=== PATIENT | female | born 1945 | race Caucasian/White ===

== ENCOUNTER 2025-06-13 11:13 | Outpatient (CLI) | payer MEDICARE, BC, SELFPAY ==
--- OUTSIDE RECORDS SUMMARY | 2025-05-05 11:20 | XMS_ITS | Encounter Summary ---
Author Organization Healthcare Address [address] [place] [address] Care Team Providers Care Neurology Director Name Role Phone Celia Oscar MD Primary Care Provider [phone] Yoan Castaneda MD Unavailable [phone] Reason for Referral * Consultation (Routine) - Authorized Specialty Diagnoses / Procedures Referred By Contac t Referred To Contact Diagnoses Age-related osteoporosis without current pathological fracture Yisel Louie PA [address] [place] [id number] Phone: tel: fax: Referral ID Status Reason Start Date Expiration Date V isits Requested Visits Authorized [id number] Authorized 05/05/2025 11/04/2026 1 1 Reason for Visit * Reason Comments Follow-up Encounter Details Date Type Department Care Team (Late st Contact Info) Description 05/05/2025 11:20 AM EDT Office Visit Professional [facility] [address], [address] [place] [address] Yisel Louie PA [address] [place] [address] Age-related osteoporosis without current pathological fracture (Primary Dx); Hyperparathyroidism (CMS/HCC) Social History Tobacco Use Types Packs/Day Years Used Date Smoking Tobacco: Never Smokeless Tobacco: Never Comments:father smoked Alcohol Use Standard Drinks/Week Comments Never 0 (1 standard drink = 0.6 oz pur e alcohol) PHQ-2 Answer Date Recorded Patient Health Questionnaire-2 Score 0 05/05/2025 Humiliation, Afraid, Rape, and Kick questionnair e Answer Date Recorded Within the last year, have y ou been afraid of your partner or ex-partner? No 03/22/2025 Within the last year, have y ou been humiliated or emotionally abused in other ways by your partner or ex-partner? No Within the last year, have y ou been kicked, hit, slapped, or otherwise physically hurt by your partner or ex-partner? No 03/22/2025 Within the last year, have y ou been raped or forced to have any kind of sexual activity by your partner or ex-partner? No 03/22/2025 AUDIT-C Answer Date Recorded Q1: How often do you have a drink containing alcohol? Never 03/22/2025 Q2: How many drinks containi ng alcohol do you have on a typical day when you are drinking? Patient does not drink Q3: How often do you have si x or more drinks on one occasion? Never 03/22/2025 Overall Financial Resource Strain (CARDIA) Answe r Date Recorded How hard is it for you to pa y for the very basics like food, housing, medical care, and heating? Not hard at all 03/22/2025 [facility] - Occupational Stress Questionnaire Answer Date Recorded Do you feel stress - tense, restless, nervous, or anxious, or unable to sleep at night because your mind is troubled all the time - these days? Not at all 03/22/2025 Exercise Vital Sign Answer Date Recorde d On average, how many days pe r week do you engage in moderate to strenuous exercise (like a brisk walk)? 0 days 03/22/2025 On average, how many minutes do you engage in exercise at this level? 0 min 03/22/2025 PRAPARE - Transportation Answer Date Re corded In the past 12 months, has l ack of transportation kept you from medical appointments or from getting medications? No 03/12 In the past 12 months, has l ack of transportation kept you from meetings, work, or from getting things needed for daily living? No 03/22/2025 Utilities Answer Date Recorded In the past 12 months has th e electric, gas, oil, or water company threatened to shut off services in your home? No 03/22/2025 PHQ-2A Answer Date Recorded Depression Risk 0 10/07/2023 Comments No Sex and Gender Information Value Date Recorded Sex Assigned at Female 11/15/2021 5:16 PM EST Legal Sex Female 8:45 PM EDT Gender Identity Female 11/15/2021 5:16 PM EST Sexual Orientation Straight 11/15/2021 5: 16 PM EST documented as of this encounter Last Filed Vital Signs Vital Sign Reading Time Taken Comments Blood Pressure 129/85 05/05/2025 11:56 AM EDT BP retake Pulse 64 05/05/2025 11:40 AM EDT Temperature 36.6 C (97.9 F) 05/05/2025 11:40 AM EDT Respiratory Rate 16 05/05/2025 11:4 0 AM EDT Oxygen Saturation 96% 05/05/2025 11: 40 AM EDT Inhaled Oxygen Concentration - - Weight 79.7 kg (175 lb 11.3 oz) 025 11:40 AM EDT Height 162.4 cm (5' 3.94 ) 05/05/2025 1 1:40 AM EDT Body Mass Index 30.22 05/05/2025 11:40 AM EDT documented in this encounter Functional Status * Over the past 2 weeks, how often have you been bothered by any of the following problems? Question Answer Date of Assessment Author Little interest or pleasure in doing things Not at all 05/05/2025 11:49 AM EDT Nancy Vallecillo Feeling down, depressed, or hopeless Not at all 05/05/2025 11:49 AM EDT Nancy Vallecillo Patient Health Questionnaire -2 Score 0 05/05/2025 11:49 AM EDT Nancy Vallecillo documented as of this encounter Miscellaneous Notes * Progress Notes - Yisel Louie PA - 05/05/2025 11:20 AM EDT Karissa Cruz is a 79 y.o. female who is referred by Dr. Oscar Celia Guzman MD for evaluation and management of osteoporosis. She is seen for follow up today to review results of DXA and labs and discuss treatment Returns for f/u labs postPTX in Sep 2024 Labs - bone markers mid range and decreasing. Vit D 80 01/2025 DXA shows osteoporosis in both hips with low Tscores -3.1. Off of supplement currently. On MVI and vit D only Plan - f/u lab results again in 3 months. Trend bone markers and start treatment accordingly next visit, if increasing will start. Will continue to hold treatment for now since soon after PTX surgeryin Sep 2024. Not due for repeat DXA until December. 01/03 - f/u labs nl ca/pth/vit D. CTX 469 bsap 25 05/05 - CTX 351, BSAP 17 Hx Persistent hypercalcemia with elevated/nonsuppressed PTH rechecked after stopping hydrochlorothiazide Sestamibi scan showing hypercellular parathyroid gland in the left neck posterior to the left thyroid lobe, measuring about 7 mm Scan also showing bilateral thyroid nodules Parathyroidectomy 09/17/2024 DXA December 2024 L 1-2: -0.4 LFN: -3.0 LTH: -3.1 RFN: -2.8 RTH: -3.1 DXA scan Date May 2023 T-scores LS: -0.2 LFA: -2.8. LTH:-2.5 Worsening compared to prior February 2024 VFA moderate compression in the T8 vertebra 2015 - wrist # ORIF Past treatment for osteoporosis -none Bone disease history: Height loss none Kyphosis/scoliosis none Ambulation Independent, Can do stairs Falls none Balance none Pain none Dental history:upper teeth implants - 5 yrss Menopause - in 50s 1 preg at age 24 Sistes CKD, osteoporosis Mother kyphotic hump in back PMH: HTN HLD GERD Exocrine pancreatic insufficiency SHIPLEY Hyperparathyroid - surgery 09/2024 No cancers, XRT, renal stones, dental issues/scheduled dental procedures, dedicated intermodal truck driver corticosteroid; No thyroid/parathyroid/kidney/liver disease/CAD/CVA/TIA; No RA/organ transplant EPI - /GI disease (celiac, IBD, bariatric surgery, short gut, ileostomy)/HIV, meds/prolonged immobility PSH: No surgical history of bariatric surgery, joint surgeries/joint replacements, , kyphoplasty/vertebroplasty spine fusion february 2021 L3-L5 posterior spinal hardware fusion with L3-L4 and L4- L5 intervertebral disc spacers. Citrate 250 D3 150 Non- smoker no ETOH Past Medical History: Diagnosis Date Anxiety Arthritis Cataract Dania (Sister) AJ (brother) Jendra (sister) Depression GERD (gastroesophageal reflux disease) Hyperlipidemia Hypertension Macular degeneration Obesity Other seasonal allergic rhinitis Seasonal allergies Personal history of other diseases of the circulatory system History of hypertension Personal history of other diseases of the digestive system History of gastroesophageal reflux (GERD) Personal history of other endocrine, nutritional and metabolic disease History of high cholesterol Personal history of other specified conditions History of insomnia Retinal detachment Dania (sister) Jendra (sister) Family History Problem Relation Name Age of Onset Diabetes Mother Jeanne Arthritis Mother Jeanne Heart disease Mother Jeanne Hypertension Mother Jeanne Other cancer Father Johnny Cancer Father Johnny Stroke Father Johnny Arthritis Sister Jendra Diabetes Sister Jendra Hypertension Sister Jendra Hypothyroidism Sister Jendra Kidney disease Sister Jendra Vision loss Sister Jendra Cataracts Sister Jendra Macular degeneration Sister Jendra Retinal detachment Sister Jendra Thyroid disease Sister Jendra Hypertension Sister Dania Hypothyroidism Sister Dania Kidney disease Sister Dania Diabetes Sister Dania Cataracts Sister Dania Retinal detachment Sister Dania Thyroid disease Sister Dania Hypertension Brother AJ Cataracts Brother AJ Diabetes Maternal Grandmother Bela Glaucoma Maternal Grandmother Bela Other cancer Maternal Grandmother Bela Stroke Maternal Grandmother Bela Anesthesia problems Neg Hx Malig Hyperthermia Neg Hx Past Surgical History: Procedure Laterality Date BACK SURGERY 03/09/2021 SECTION, CLASSIC Aug 1971 SECTION, LOW TRANSVERSE N/A Section from [facility] CHOLECYSTECTOMY N/A Cholecystectomy from [facility] FRACTURE SURGERY HEMORRHOID SURGERY N/A X 2 ORIF WRIST FRACTURE Right PARATHYROIDECTOMY 09/13/2024 Near total with right inferior remnant SPINE SURGERY Social History Tobacco Use Smoking status: Never Smokeless tobacco: Never Tobacco comments: father smoked Substance Use Topics Alcohol use: Never Current Outpatient Medications Medication Instructions amLODIPine (NORVASC) 10 mg, Nightly ascorbic acid (VITAMIN C) 500 mg, Daily B Complex Vitamins (VITAMIN-B COMPLEX PO) 1 tablet, Daily Biotin w/ Vitamins C & E (HAIR SKIN & NAILS GUMMIES PO) Daily Cholecalciferol (VITAMIN D-3 PO) 4,000 Units, Daily cyanocobalamin (VITAMIN B-12) 1,000 mcg, Daily EPINEPHrine (Epipen) 0.3 MG/0.3ML injection syringe INJECT 1 SYRINGE INTO THE MUSCLE ONCE A DAY NEEDED FOR ANAPHYLAXIS fluticasone (Flonase) 50 MCG/ACT nasal spray Administer 2 sprays into each nostril 1 (one) time each day if needed. hydroCHLOROthiazide (HYDRODIURIL) 25 mg, Daily hydrocortisone 2.5 % cream 1 Application, 2 times daily lisinopril 30 mg, Daily loratadine (Claritin) 10 MG tablet TAKE 1 TABLET EVERY DAY NEEDED MAGNESIUM OXIDE PO 1,200 mg, Nightly montelukast (Singulair) 10 MG tablet Take 1 tablet (10 mg) by mouth every night. Mounjaro 5 MG/0.5ML solution auto-injector solution pen-injector Multiple Vitamins-Minerals (PRESERVISION AREDS 2 PO) 1 capsule, 2 times daily Multiple Vitamins-Minerals (ZINC PO) 44 mg, Daily NexIUM [address] capsule Take 1 capsule (40 mg) by mouth every night. olopatadine (Patanol) 0.1 % ophthalmic solution 1 drop, As needed ondansetron ODT (Zofran-ODT) 8 MG disintegrating tablet DISSOLVE 1 TABLET ON TONGUE EVERY 6 HOURS NEEDED pancrelipase, Wdg-Spdk-Lurp, (Creon) 81879-[address]893 units capsule Take 2 capsules by mouth 3 (three) times a day with meals. Pediatric Multivit-Minerals (FLINTSTONES GUMMIES PO) 2 Chewable tablet, Daily simvastatin (ZOCOR) 10 mg, 2 times daily tirzepatide (MOUNJARO) 5 mg, Weekly Ubiquinone (ULTRA COQ10 PO) 400 mg, Daily zolpidem (AMBIEN) 5 mg, Nightly Allergies Allergen Reactions Other Anaphylaxis and Other - please document in the comment field Allergic to bee stings Nitrofurantoin Rash Sulfa Drugs Unknown - Patient states they do not know rxn details, Hives and Itching Bee Venom Other - please document in the comment field Swollen Codeine Other - please document in the comment field Darvon [Propoxyphene] Unknown - Patient states they do not know rxn details Ephedrine Unknown - Patient states they do not know rxn details Hymenoptera Venom Preparations Unknown - Patient states they do not know rxn details Allergic to bee stings Levofloxacin Other - please document in the comment field deathly ill Pravastatin Other - please document in the comment field Sulfamethoxazole-Trimethoprim Other - please document in the comment field sulfamethoxazole / trimethoprim The following portions of the chart were reviewed this encounter and updated as appropriate: REVIEW OF SYSTEMS A 14 point ROS was obtained and is negative except as otherwise noted in HPI. PHYSICAL EXAMINATION Visit Vitals BP 129/85 (BP Location: Right arm, Patient Position: Sitting, BP Cuff Size: Adult) Comment: BP retake Pulse 64 Temp 36.6 ??C (97.9 ??F) (Oral) SpO2 96% Constitutional: No acute distress. Weight 79.7 kg (175 lb 11.3 oz) Height 1.624 m (5' 3.94 ) BMI: Body mass index is 30.22 kg/m??. BSA: Body surface area is 1.9 meters squared. HEENT: normal. Cardiovascular: No JVD, no edema Pulmonary: Normal effort of breathing. Abdominal: no distension Musculoskeletal: Normal extremity movements Skin: No rashes or lesions. Neurologic: No focal deficits Psychiatric: Orientated to person, place, and time: Normal Mood and affect LAB RESULTS Renal Panel: Lab Results Component Value Date GLUCOSE 98 04/21/2025 NA 141 04/21/2025 K 4.0 04/21/2025 CL 104 04/21/2025 CO2 27 04/21/2025 BUN 23 04/21/2025 CREATININE 0.67 04/21/2025 CREATININE 0.63 12/30/2024 CREATININE 0.59 (L) 09/21/2024 CREATININE 0.65 03/09/2024 EGFR 89.6 04/21/2025 CYSTATIN 1.11 03/09/2024 CALCIUM 9.3 04/21/2025 PHOS 4.1 04/21/2025 ALBUMIN 4.3 04/21/2025 VITAMIN D Lab Results Component Value Date VITD25 54.9 10/07/2023 VITD 1,25 40.1 10/07/2023 Urine studies: Lab Results Component Value Date CALCIUMUR 13.4 10/07/2023 PHOSUR 9.2 10/07/2023 CREATUR 96 12/30/2024 Paraproteinemia Labs: Lab Results Component Value Date PATHINTERP 10/07/2023 NORMAL SERUM PATTERN: Serum protein electrophoresis demonstrates no significant abnormality. M protein(s) not observed. Bone Turnover Markers: Lab Results Component Value Date BSAP 17.2 04/21/2025 BSAP 25.4 12/30/2024 BSAP 28.8 09/21/2024 BSAP 19.9 02/09/2024 BSAP 18.2 12/01/2023 BSAP 21.8 10/07/2023 CTELOX 351 04/21/2025 CTELOX 469 12/30/2024 CTELOX 394 09/21/2024 CTELOX 240 10/07/2023 NTELOPEPTS 9.4 10/07/2023 OSTEOCALCIN 18 10/07/2023 MBD: Lab Results Component Value Date PTH 53 04/21/2025 PTH 45 03/22/2025 PTH 66 12/30/2024 PTH 58 10/26/2024 CALCIUM 9.3 04/21/2025 CALCIUM 9.5 03/22/2025 CALCIUM 9.4 12/30/2024 CALCIUM 9.5 10/26/2024 ICAS 4.9 04/21/2025 ICAS 4.9 12/30/2024 ICAS 5.3 08/04/2024 ICAS 5.4 (H) 03/09/2024 PHOS 4.1 04/21/2025 PHOS 4.0 12/30/2024 PHOS 3.7 09/21/2024 PHOS 3.4 03/09/2024 MG 2.7 (H) 10/07/2023 ALBUMIN 4.3 04/21/2025 ALBUMIN 4.3 12/30/2024 ALBUMIN 3.9 09/21/2024 ALBUMIN 4.1 03/09/2024 ALKPHOS 101 03/09/2024 ALKPHOS 99 02/09/2024 ALKPHOS 90 12/01/2023 ALKPHOS 95 10/07/2023 ASSESSMENT/PLAN Karissa Cruz is a 79 y.o. female who presents for evaluation and management of osteoporosis in the setting of chronic pancreatitis and exocrine pancreatic insufficiency which she is taking Creon replacement. She has a history of wrist fracture in 2014 and underwent spinal fusion surgery in 2020.She has not been treated for osteoporosis DEXA scan shows osteoporotic T-scores. Labs show mildly elevated serum calcium with normal PTH. This could be related to her calcium supplements as well as hydrochlorothiazide that she takes for hypertension. VFA showing moderate compression in the T8 vertebra Repeat labs still showing mild hypercalcemia without PTH suppression Sestamibi scan - with target lesion in region of left thyroid lobe in addition to thyroid nodules Parathyroidectomy 09/2024 Problem List Items Addressed This Visit Musculoskeletal Osteoporosis - Primary Overview hip; osteopenia wrist Relevant Orders Renal Function Panel, Plasma Bone Specific Alkaline Phosphatase C-Telopeptide Vitamin D 25 Hydroxy Follow Up Bone Mineral Metabolism Endocrine/Metabolic Hyperparathyroidism (CMS/HCC) Monitoring for drug toxicity: NA for this visit Counseling Documentation: She should continue adequate dietary intake of Ca and take vit D 0080-9040 units daily. She is alsoadvised exercises for fall prevention, muscle strengthening and balance exercises. Avoidance of tobacco and alcohol should be observed. She was also counseled to increase her dietary protein intake. 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 Education provided was verbal counseling. Additional time was spent in care coordination including medical record review. Encounter Timing: I personally spent a total of 20 minutes on this encounter. This time includes face to face with patient, counseling and discussion, lab/result interpretation, coordination of follow-up care, document review. MDM: - was based on the following: Labs reviewed renal panel, vit D, bone turnover markers Past imaging reviewed Old chart reviewed Imaging directly visualized and personally interpreted DXA scan Comorbidities complicating the care of the patient GERD, CHF identified SDOH that significantly limit treatment Distance traveled for medical care Thank you very much for allowing me to participate in the care of Karissa Cruz. If you have any questions please do not hesitate to contact me. ORDERS PLACED THIS ENCOUNTER Orders Placed This Encounter Procedures Renal Function Panel, Plasma Standing Status: Future Expected Date: 07/21/2025 Expiration Date: [facility]06[facility] Bone Specific Alkaline Phosphatase Standing Status: Future Expected Date: 07/21/2025 Expiration Date: 11/06/2026 [facility]] C-Telopeptide Standing Status: Future Expected Date: 07/21/2025 Expiration Date: 11/06/2026 [facility] [[facility]] Vitamin D 25 Hydroxy Standing Status: Future Expected Date: 07/21/2025 Expiration Date: 11/06/2026 [facility]] Follow Up Bone Mineral Metabolism With labs Standing Status: Future Expected Date: 08/11/2025 Expiration Date: 06/05/2026 Referral Priority: Routine Referral Type: Consultation Number of Visits Requested: 1 Electronically Signed by: SHAHAB Smith - 05/05/2025 - 12:59 PM documented in this encounter Plan of Treatment Upcoming Encounters Date Type Department Care Team ([facility] st Contact Info) Description 07/12/2025 1:00 PM EDT Ovarian Cancer Screening [facility] Gynecology [address] [facility], [address] [place] [address] 07/25/2025 11:50 AM EDT Clinical Support Medical Office Building Lab [address] [place] [address] 08/08/2025 12:20 PM EDT Office Visit Professional [facility] [address] [facility], [address] [place] [address] Yisel Louie PA [address] [facility] [address] [place] [address] 03/26/2026 7:45 AM EDT Office Visit [facility] [address] [place] [address] David Lund MD [address] [facility] [address] [place] [address] Scheduled Orders Name Type Priority Associated Diagnoses Orde r Schedule Renal Function Panel, Plasma Lab Routine Age-related osteoporosis without current pathological fracture Expected: 07/21/2025 (Approximate), Expires: 11/06/2026 Bone Specific Alkaline Phosphatase Lab Routine Age-related osteoporosis without current pathological fracture Expected: 07/21/2025 (Approximate), Expires: 11/06/2026 C-Telopeptide Lab Routine Age-related osteoporosis without current pathological fracture Expected: 07/21/2025 (Approximate), Expires: 11/06/2026 Vitamin D 25 Hydroxy Lab Routine Age-related osteoporosis without current pathological fracture Expected: 07/21/2025 (Approximate), Expires: 11/06/2026 Scheduled Referrals Name Type Priority Associated Diagnoses Orde r Schedule Follow Up Bone Mineral Metabolism Outpatient Referral Routine Age-related osteoporosis without current pathological fracture Expected: 08/11/2025, Expires: 06/05/2026 documented as of this encounter Visit Diagnoses Diagnosis Age-related osteoporosis without current pathological fracture- Primary Hyperparathyroidism (CMS/HCC) Hyperparathyroidism, unspecified documented in this encounter Additional Health Concerns Assessment Noted Time A fall risk assessment has been complete d for the patient 05/05/2025 11:49 AM EDT A Body Mass Index follow-up plan has been documented for the patient 05/05/2025 12:11 PM EDT documented as of this encounter Care Teams Neurology Director Relationship Specialty Start Date End Date Celia Oscar MD [facility] [address] [place] [id number] PCP - General 02/22/21 Yoan Castaneda MD [facility] [address] [place] [id number] Referring Physician Gastroenterology 01/14/22 documented as of this encounter
--- OUTSIDE RECORDS SUMMARY | 2025-05-09 12:55 | XMS_ITS | Encounter Summary ---
Author Organization [employer] ([place], [place], [place], [place]) Address [address] [place] [address] Care Team Providers Care Health And Physical Education Professor Name Role Phone Celia Oscar MD Primary Care Provider [phone] Reason for Referral * Mammography (Routine) - Closed Specialty Diagnoses / Procedures Referred By Craig hernandez Referred To Contact Radiology Diagnoses Visit for screening mammogram Procedures MM digital mammo screen with jessica bilateral Celia Oscar MD [address] [place] [address] Phone: tel: fax: [address] [address] Phone: tel: fax: Referral ID Status Reason Start Date Expiration Date Visits Re quested Visits Authorized [id number] Closed 05/09/2025 05/09/2026 1 1 * Mammography (Routine) - Closed Specialty Diagnoses / Procedures Referred By Craig hernandez Referred To Contact Radiology Diagnoses Visit for screening mammogram Procedures MM digital mammo screen with jessica bilateral Celia Oscar MD [address] [place] [address] Phone: tel: fax: [address] [place] [address] Phone: tel: fax: Referral ID Status Reason Start Date Expiration Date Visits Re quested Visits Authorized [id number] Closed 05/09/2025 05/09/2026 1 1 Reason for Visit * Mammography (Routine) - Closed Specialty Diagnoses / Procedures Referred By Contac t Referred To Contact Radiology Diagnoses Visit for screening mammogram Procedures MM digital mammo screen with jessica bilateral Celia Oscar MD [address] [place] [address] Phone: tel: fax: [address] [place] [phone] Phone: tel: fax: Referral ID Status Reason Start Date Expiration Date Visits Re quested Visits Authorized [id number] Closed 05/09/2025 05/09/2026 1 1 Encounter Details Date Type Department Care Team (Latest Contact Info) Description 05/09/2025 12:55 PM EDT - 05/09/2025 11:59 PM EDT Hospital Encounter [address] [address] Celia Oscar MD [address] [place] [address] Visit for screening mammogram (Primary Dx) Discharge Disposition: Home or Self Care Social History Tobacco Use Types Packs/Day Years Used Date Smoking Tobacco: Never Assessed Family and Community Support Answer Quique e Recorded Help with Day to Day Activities Not on file 10/29/2023 Feeling Lonely or Isolated Not on file 10/29 Educational Attainment Answer Date Danyel rded Speak language other than Thai at home Not on file 10/29/2023 Want help with school or training Not on file 10/29/2023 Substance Use Answer Date Recorded Used prescription meds for non-medical reasons N ot on file 10/29/2023 Used illegal drugs past 12 months Not on file 10/29/2023 Comments Unknown Sex and Gender Information Value Date Recorded Sex Assigned at Not on file Legal Sex Female 12:31 PM CDT Gender Identity Not on file Sexual Orientation Not on file documented as of this encounter Medications at Time of Discharge amLODIPine (NORVASC) 5 MG tablet Take 1 tablet (5 mg total) by mouth daily. 12/05/2022 azelastine (ASTELIN) 137 mcg (0.1 %) nasal spray azelastine 137 mcg (0.1 %) nasal spray aerosol [place] 2 sprays twice a day by intranasal route. cholecalciferol, vitamin D3, (Vitamin D3) 10 mcg (400 unit) Cap Vitamin D3 Creon 36,000-114,000- 180,000 unit CpDR capsule Take 2 capsules (72,000 units of lipase total) by mouth 3 (three) times daily. 12/09/2022 esomeprazole (NexIUM) 40 MG capsule Take 1 capsule (40 mg total) by mouth daily. 12/05/2022 fluticasone propionate (FLONASE) 50 mcg/actuation nasal spray 2 sprays daily. 11/05/2022 hydroCHLOROthiazide (HYDRODIURIL) 25 MG tablet Take 1 tablet (25 mg total) by mouth daily. 12/05/2022 hydrocortisone 2.5 % cream Apply topically daily as needed. 11/07/2022 ketoconazole (NIZORAL) 2 % shampoo daily as needed. 11/07/2022 lisinopriL (PRINIVIL,ZESTRIL) 30 MG tablet Take 1 tablet (30 mg total) by mouth daily. 12/05/2022 loratadine (CLARITIN) 10 mg tablet Take 1 tablet (10 mg total) by mouth daily. montelukast (SINGULAIR) 10 mg tablet montelukast 10 mg tablet TAKE 1 TABLET BY MOUTH EVERY EVENING olopatadine (PATANOL) 0.1 % ophthalmic solution SMARTSIG:In Eye(s) 10/21/2022 ondansetron (ZOFRAN-ODT) 8 MG disintegrating tablet Take 1 tablet (8 mg total) by mouth every 6 (six) hours as needed. 11/30/2022 polyethylene glycol (GLYCOLAX) 17 gram/dose powder Take 17 g by mouth. simvastatin (ZOCOR) 20 MG tablet Take 1 tablet (20 mg total) by mouth. 12/20/2021 tirzepatide (MOUNJARO SUBQ) Inject subcutaneously. zolpidem (Ambien) 5 MG tabletIndications:I nsomnia, unspecified type Take 1 tablet (5 mg total) by mouth every night as needed for insomnia for up to 180 days. Max Daily Amount: 5 mg 30 tablet 5 01/10/2025 07/09/20 25 documented as of this encounter Plan of Treatment Upcoming Encounters Date Type Department Care Team (Late st Contact Info) Description 12/26/2025 12:45 PM EDT Office Visit [address] [address] Enrique Barrera MD [address] [place] [address] 05/11/2026 1:30 PM EDT Appointment [address] [place] [phone] documented as of this encounter Procedures Procedure Name Priority Date/Time Associated Diagnosis Comments MM DIGITAL MAMMO SCREEN WITH JESSICA BILATERAL Routine 05/09/2025 1:16 PM EDT Visit for screening mammogram documented in this encounter Results * MM digital mammo screen with ejssica bilateral (05/09/2025 1:16 PM EDT) Anatomical Region Laterality Modality Breast Bilateral Mammography 05/11/2025 6:52 AM EDT Impressions 05/12/2025 6:12 AM EDT No mammographic evidence of malignancy. BI-RADS CATEGORY: 2 , BENIGN FINDING(S). RECOMMENDED FOLLOW-UP: Annual mammography. A letter including results and recommendations was sent to the patient. Density notification was included for patients with pattern 3 or 4 breast tissue. Patient information was entered into a reminder system with a target due date for the next mammogram. NOTES: Mammography does not detect approximately 10-15% of breast cancers. Physical examination of the breasts by a physician and regular monthly breast self examinations are integral parts of breast cancer screening. A normal mammogram does not exclude breast cancer if there is an abnormal finding on physical examination. When clinically indicated, a biopsy should not be postponed because of a normal mammogram report. Narrative 05/12/2025 6:12 AM EDT BILATERAL SCREENING DIGITAL MAMMOGRAPHY CLINICAL INDICATION: Routine screening. TECHNIQUE: Bilateral CC and MLO views were obtained with digital acquisitions with 3D tomosynthesis. The study was read with the assistance of CAD. COMPARISON: Exams dating back to 2020. DENSITY: The breasts are almost entirely fatty. FINDINGS: There are no spiculated masses, areas of distortion or suspicious calcifications. Oval focal asymmetry in the lateral anterior right breast is stable. Extensive dermal calcifications are noted in the posterior breast. us Celia Oscar MD IMG MAMMOGRAPHY ORDERABLES Fin al Result documented in this encounter Visit Diagnoses Diagnosis Visit for screening mammogram- Primary documented in this encounter Care Teams Health And Physical Education Professor Relationship Specialty Start Date End Date Celia Oscar MD [address] [place] [id number] PCP - General General Internal Medicine 12/27/24 documented as of this encounter
--- OUTSIDE RECORDS SUMMARY | 2025-06-13 11:43 | XMS_ITS | Clinical Summary ---
Author Organization [facility] Address [address], [address] [place] [address] Care Team Providers Care Cost Manager Name Role Phone Sonal Hamm MD Primary Care Provider [phone] Allergies Active Allergy Reactions Criticality Noted Date Comments Hymenoptera Venom Preparations 12/11 Levofloxacin 12/11/2010 deathly ill Nitrofurantoin Rash Medium 10/25/2012 Sulfa Antibiotics 12/11/2010 Medications omega-3 acid ethyl esters (LOVAZA) 1 G capsule Take 2 capsules by mouth 2 times daily. 120 capsule 5 3 Active mometasone (NASONEX) 50 MCG/ACT nasal spray 2 sprays by Nasal route daily. 1 Inhaler 5 3 Active polyethylene glycol (GLYCOLAX) powder Take 17 g by mouth daily. Active Psyllium (METAMUCIL) 30.9 % POWD Take by mouth. Act esteban Probiotic Product (PROBIOTIC DAILY PO) Take by mouth. Activ e busPIRone (BUSPAR) 5 MG tablet Take 2 tablets by mouth 3 times daily as needed. 90 tablet 5 4 Active diclofenac sodium (VOLTAREN) 1 % GEL Apply 2 g topically 2 times daily for 30 days. 1 Tube 5 4 Active levocetirizine (XYZAL) 5 MG tablet Take 5 mg by mouth nightly. 5 4 Active EPIPEN 2-MAIDA 0.3 MG/0.3ML SOAJ injection 1 4 Active zolpidem (AMBIEN) 10 MG tablet Take 1 tablet by mouth nightly. 30 tablet 2 4 Active amLODIPine (NORVASC) 5 MG tablet Take 1 tablet by mouth daily. 30 tablet 5 4 Active acyclovir (ZOVIRAX) 400 MG tablet Take 1 tablet by mouth 2 times daily. 60 tablet 5 4 Active hydrochlorothia zide (HYDRODIURIL) 25 MG tablet Take 1 tablet by mouth daily. 30 tablet 5 4 Active lisinopril (ZESTRIL) 30 MG tablet Take 1 tablet by mouth daily. 90 tablet 3 4 Active montelukast (SINGULAIR) 10 MG tablet Take 1 tablet by mouth nightly. 30 tablet 5 4 Active pravastatin (PRAVACHOL) 20 MG tablet Take 1 tablet by mouth daily. 90 tablet 3 4 Active benzonatate (TESSALON PERLES) 100 MG capsule Take 1 capsule by mouth every 6 hours as needed for Cough. 30 capsule 1 4 Active LORazepam (ATIVAN) 0.5 MG tabletIndicatio ns:Panic attack Take 1 tablet by mouth every 6 hours as needed. 30 tablet 2 4 Active rosuvastatin (CRESTOR) 5 MG tablet Take 1 tablet by mouth nightly. 30 tablet 5 4 Active Cholecalciferol 50841 UNITS TABS Take 1 tablet by mouth every 7 days. 4 tablet 5 4 Active esomeprazole (NEXIUM) 40 MG capsule Take 1 capsule by mouth daily. Patient must have appointment for further refills 30 capsule 0 4 Active Active Problems Problem Noted Date Diagnosed Date Sleep apnea 11/12/2011 Hypertension Hyperlipidemia GERD (gastroesophageal reflux disease) Non-ulcer dyspepsia Diverticulosis Diastolic dysfunction Insomnia Immunizations Immunization Administration Dates Next Due Influenza 07/19/2012,08/25/2011 Influenza Virus Vaccine 08/03/2013 Pneumococcal Conjugate 7-valent (Prevnar7) 08/05 Family History Medical History Relation Name Comments Cancer Father throat High Cholesterol Father Stroke Father Diabetes Mother Heart Disease Mother High Blood Pressure Mother High Cholesterol Mother Cancer Paternal Aunt colon Cancer Paternal Uncle lung Diabetes Sister High Blood Pressure Sister Relation Name Status Comments Father Mother Paternal Aunt Paternal Uncle Sister Social History Tobacco Use Types Packs/Day Years Used Date Smoking Tobacco: Never Alcohol Use Standard Drinks/Week Comments No 0 (1 standard drink = 0.6 oz pur e alcohol) Comments No Sex and Gender Information Value Date Recorded Sex Assigned at Not on file Legal Sex Female 8:39 AM EST Gender Identity Not on file Sexual Orientation Not on file Last Filed Vital Signs Vital Sign Reading Time Taken Comments Blood Pressure 140/86 05/25/2014 3:11 PM EDT Pulse 64 05/25/2014 3:11 PM EDT Temperature 36.2 C (97.1 F) 01/04/2013 5:11 PM EDT Respiratory Rate 20 05/25/2014 3:11 PM EDT Oxygen Saturation 96% 05/25/2014 3:11 PM EDT room air Inhaled Oxygen Concentration - - Weight 98 kg (216 lb) 05/25/2014 3:11 PM EDT Height 167.6 cm (5' 6 ) 05/25/2014 3:11 PM EDT Body Mass Index 34.86 05/25/2014 3:11 PM EDT Plan of Treatment Not on file Care Teams Cost Manager Relationship Specialty Start Date End Date Sonal Hamm MD PCP - General Family Medicine 11/23/12
--- OUTSIDE RECORDS SUMMARY | 2025-06-13 11:43 | XMS_ITS | Encounter Summary ---
Author Organization [employer] ([place], [place], [place], [place]) Address [address] [place] [address] Care Team Providers Care Material Cutter Name Role Phone Celia Oscar MD Primary Care Provider [phone] Celia Oscar MD Primary Care Provider [phone] Reason for Referral * DXA (Routine) - Closed Specialty Diagnoses / Procedures Referred By Contac t Referred To Contact Diagnoses Osteoporosis, senile Procedures DXA bone density spine and hip Celia Oscar MD [address] [place] [address] Phone: tel: fax: Referral ID Status Reason Start Date Expiration Date Visits Re quested Visits Authorized [id number] Closed 11/24/2022 05/23/2023 1 1 Encounter Details Date Type Department Care Team (Late st Contact Info) Description 11/24/2022 Outside Orders [facility] Sched[address] [place] [address] Celia Oscar MD [address] [place] [address] Osteoporosis, senile (Primary Dx) Social History Tobacco Use Types Packs/Day Years Used Date Smoking Tobacco: Never Assessed Comments Unknown Sex and Gender Information Value Date Recorded Sex Assigned at Not on file Legal Sex Female 12:31 PM CDT Gender Identity Not on file Sexual Orientation Not on file documented as of this encounter Plan of Treatment Upcoming Encounters Date Type Department Care Team (Late st Contact Info) Description 12/26/2025 12:45 PM EDT Office Visit [facility] [address] [place] [phone] Enrique Barrera MD [address] [place] [address] 05/11/2026 1:30 PM EDT Appointment [facility] [address] [facility] [address] [place] [phone] documented as of this encounter Results * DXA bone density spine and hip (05/18/2023 11:24 AM EDT) Anatomical Region Laterality Modality Bone Dual-energy X-ra y absorptiometry (DEXA) 05/18/2023 1:07 PM EDT Impressions 05/18/2023 1:11 PM EDT FINAL IMPRESSION: OSTEOPOROSIS: Lowest T-score is at or below -2.5. This patient's T-score meets the World Health Organization criteria for osteoporosis. RECOMMENDATION: Repeat BMD measurement in 2 years. UNIVERSAL GUIDELINES: 1. Adequate intake of calcium (at least 1200 mg/day). 2. Vitamin D supplementation (800 to 1000 IU/day) for individuals at risk of insufficiency. 3. Regular weight-bearing exercise. 4. Fall prevention. 5. Avoidance of tobacco and alcohol. Narrative 05/18/2023 1:11 PM EDT PROCEDURE: BONE DENSITOMETRY (DXA) REASON FOR EXAM: Postmenopausal osteoporosis RISK FACTORS: Estrogen deficiency COMPARISON STUDY: 05/15/2021 from [facility] FINDINGS: Bone densitometry was performed using a [employer] unit. Sites measured included the spine and left forearm and left hip. The patient is status post spinal fixation. Due to the presence of orthopedic hardware, the L3 and L4 vertebrae are excluded from the reported BMD of the lumbar spine. Using L1-2, the bone mineral density of the spine is 1.154 g/cm2. This corresponds to a T-score of -0.2 on the present exam, compared to a T-score of -1.1 previously. Using the total femur, the bone mineral density of the hip is 0.696 g/cm2. This corresponds to a T-score of -2.5 on the present exam, compared to a T-score of -2.6 previously. Using one third radius, the bone mineral density of the forearm is 0.633 g/cm2. This corresponds to a T-score of -2.8. Prior T score was -2.2. NOTE: T-score: standard deviation compared with peak bone mass of young adult mean. Z-score: standard deviation compared with age-matched mean. * Following the recommendations of the International Society of Bone Densitometry, classification of hip BMD is based upon the lower of two T-scores; total hip or femoral neck. Procedure Note Lupe Hernandez MD - 05/18/2023 PROCEDURE: BONE DENSITOMETRY (DXA) REASON FOR EXAM: Postmenopausal osteoporosis RISK FACTORS: Estrogen deficiency COMPARISON STUDY: 05/15/2021 from [facility] FINDINGS: Bone densitometry was performed using a [employer] unit. Sites measured included the spine and left forearm and left hip. The patient is status post spinal fixation. Due to the presence of orthopedic hardware, the L3 and L4 vertebrae are excluded from the reported BMD of the lumbar spine. Using L1-2, the bone mineral density of the spine is 1.154 g/cm2. This corresponds to a T-score of -0.2 on the present exam, compared to a T-score of -1.1 previously. Using the total femur, the bone mineral density of the hip is 0.696 g/cm2. This corresponds to a T-score of -2.5 on the present exam, compared to a T-score of -2.6 previously. Using one third radius, the bone mineral density of the forearm is 0.633 g/cm2. This corresponds to a T-score of -2.8. Prior T score was -2.2. NOTE: T-score: standard deviation compared with peak bone mass of young adult mean. Z-score: standard deviation compared with age-matched mean. * Following the recommendations of the International Society of Bone Densitometry, classification of hip BMD is based upon the lower of two T-scores; total hip or femoral neck. IMPRESSION: FINAL IMPRESSION: OSTEOPOROSIS: Lowest T-score is at or below -2.5. This patient's T-score meets the World Health Organization criteria for osteoporosis. RECOMMENDATION: Repeat BMD measurement in 2 years. UNIVERSAL GUIDELINES: 1. Adequate intake of calcium (at least 1200 mg/day). 2. Vitamin D supplementation (800 to 1000 IU/day) for individuals at risk of insufficiency. 3. Regular weight-bearing exercise. 4. Fall prevention. 5. Avoidance of tobacco and alcohol. us Celia Oscar MD IMG DXA ORDERABLES Final Resul t documented in this encounter Visit Diagnoses Diagnosis Osteoporosis, senile- Primary Senile osteoporosis Osteoporosis, senile Senile osteoporosis documented in this encounter Care Teams Material Cutter Relationship Specialty Start Date End Date Celia Oscar MD [address] [place] [address] PCP - General General Internal Medicine 11/24/2211/12 Celia Oscar MD [address] [place] [address] PCP - General General Internal Medicine 12/27/24 documented as of this encounter
--- OUTSIDE RECORDS SUMMARY | 2025-06-13 11:43 | XMS_ITS | Clinical Summary ---
Author Organization [employer] ([place], [place], [place], [place]) Address [address] [place] [address] Care Team Providers Care It Investment/Portfolio Manager Name Role Phone Celia Oscra MD Primary Care Provider [phone] Allergies Active Allergy Reactions Criticality Noted Date Comments Codeine Other (See Comments) Low 09/05/2013 Propoxyphene N-Acetaminophen 09/05/2013 Ephedrine Other (See Comments) Low 09/05/2013 Epinephrine Other (See Comments) 12/29/2022 Other Anaphylaxis,Other (See Comments) High 12/11/2010 Allergic to bee stings Sulfa (Sulfonamide Antibiotics) Hives,Shortness Of Breath High 12/29/2022 Medications simvastatin (ZOCOR) 20 MG tablet Take 1 tablet (20 mg total) by mouth. 12/21/19 22 Active polyethylene glycol (GLYCOLAX) 17 gram/dose powder Take 17 g by mouth. Active ondansetron (ZOFRAN-ODT) 8 MG disintegrating tablet Take 1 tablet (8 mg total) by mouth every 6 (six) hours as needed. 11/30/19 23 Active olopatadine (PATANOL) 0.1 % ophthalmic solution SMARTSIG:In Eye(s) 10/21/19 23 Active montelukast (SINGULAIR) 10 mg tablet montelukast 10 mg tablet TAKE 1 TABLET BY MOUTH EVERY EVENING Active lisinopriL (PRINIVIL,ZESTRIL) 30 MG tablet Take 1 tablet (30 mg total) by mouth daily. 02/24/20 23 Active Creon 36,000-114,000- 180,000 unit CpDR capsule Take 2 capsules (72,000 units of lipase total) by mouth 3 (three) times daily. 12/09/19 Active ketoconazole (NIZORAL) 2 % shampoo daily as needed. 11/07/19 Active hydrocortisone 2.5 % cream Apply topically daily as needed. 11/07/19 Active hydroCHLOROthiazid e (HYDRODIURIL) 25 MG tablet Take 1 tablet (25 mg total) by mouth daily. 12/05/19 Active fluticasone propionate (FLONASE) 50 mcg/actuation nasal spray 2 sprays daily. 11/05/19 Active esomeprazole (NexIUM) 40 MG capsule Take 1 capsule (40 mg total) by mouth daily. 12/05/19 Active amLODIPine (NORVASC) 5 MG tablet Take 1 tablet (5 mg total) by mouth daily. 12/05/19 Active cholecalciferol, vitamin D3, (Vitamin D3) 10 mcg (400 unit) Cap Vitamin D3 Active azelastine (ASTELIN) 137 mcg (0.1 %) nasal spray azelastine 137 mcg (0.1 %) nasal spray aerosol [place] 2 sprays twice a day by intranasal route. Active tirzepatide (MOUNJARO SUBQ) Inject subcutaneously. Active loratadine (CLARITIN) 10 mg tablet Take 1 tablet (10 mg total) by mouth daily. Active zolpidem (Ambien) 5 MG tabletIndications: Insomnia, unspecified type Take 1 tablet (5 mg total) by mouth every night as needed for insomnia for up to 180 days. Max Daily Amount: 5 mg 30 tablet 5 01/11/20 25 025 Active Encounters Date Type Department Care Team Description 05/09/2025 12:55 PM EDT - 05/09/2025 11:59 PM EDT Hospital Encounter [address] [place] [address] Celia Oscar MD Visit for screening mammogram (Primary Dx) Discharge Disposition: Home or Self Care 05/09/2025 Outside Orders [address] [place] [address] Celia Oscar MD Visit for screening mammogram (Primary Dx) 05/09/2025 Travel from Last 3 Months Family History Medical History Relation Name Comments Breast cancer Neg Hx Ovarian cancer Neg Hx Social History Tobacco Use Types Packs/Day Years Used Date Smoking Tobacco: Never Assessed Family and Community Support Answer Quique e Recorded Help with Day to Day Activities Not on file 10/29/2023 Feeling Lonely or Isolated Not on file 10/29 Educational Attainment Answer Date Danyel rded Speak language other than Italian at home Not on file 10/29/2023 Want [...] Sign Reading Time Taken Comments Blood Pressure 135/83 12/27/2024 1:24 PM EDT Pulse 79 12/27/2024 1:24 PM EDT Temperature 36 C (96.8 F) 12/22/2023 1:15 PM EDT Respiratory Rate 20 12/27/2024 1:24 PM EDT Oxygen Saturation 97% 12/27/2024 1:24 PM EDT Inhaled Oxygen Concentration - - Weight 82.8 kg (182 lb 8 oz) 12/27/2024 1:24 PM EDT Height 162.6 cm (5' 4 ) 12/27/2024 1:24 PM EDT Body Mass Index 31.33 12/27/2024 1:24 PM EDT Plan of Treatment Upcoming Encounters Date Type Department Care Team (Late st Contact Info) Description 12/26/2025 12:45 PM EDT Office Visit [address] [phone] Enrique Barrera MD [address] [place] [phone] 05/11/2026 1:30 PM EDT Appointment [address] [place] [address] Health Maintenance Due Date Last Done Comments Medicare Initial AWV [id number] Depression Screening (12+) 1957 Tobacco Cessation Counseling and Screening (12+) 1957 Hepatitis C Screening 1964 Respiratory Syncytial Virus (RSV) Adult or (1 - 1-dose 75+ series) 2021 COVID-19 VACCINE ( - 2023-2 5 season) 2024 08/09/2021, 11/14/2020, 10/17/2020 Falls Risk Screening 10/12/2024 DXA SCAN 05/18/2025 05/18/2023, 05/15/2021 Influenza Vaccine (#1) 2025 4, 06/30/2023, 07/15/2022, Additional history exists DTAP/TDAP/TD VACCINES (3 - T d or Tdap) 08/08/2034 08/08/2024, 07/19/2014 Shingles Vaccine (Zoster) Completed 2018, 04/06/2019, 04/11/2010 Pneumococcal 50+ years Completed 2, 08/11/2021, 03/12/2015, Additional history exists Procedures Procedure Name Priority Date/Time Associated Diagnosis Comments MM DIGITAL MAMMO SCREEN WITH JESSICA BILATERAL Routine 05/09/2025 1:16 PM EDT Visit for screening mammogram DXA BONE DENSITY SPINE AND HIP Routine 05/18/2023 11:24 AM EDT Osteoporosis, senile from Last 3 Months or Most Recently Relevant to Health Maintenance Results * MM digital mammo screen with jessica bilateral (05/09/2025 1:16 PM EDT) Anatomical Region [...] MD IMG MAMMOGRAPHY ORDERABLES Fin al Result * DXA bone density spine and hip [...] FACTORS: Estrogen deficiency COMPARISON STUDY: 05/15/2021 from [facility] FINDINGS: Bone densitometry was performed using a [employer] unit. Sites measured included the spine and [...] FACTORS: Estrogen deficiency COMPARISON STUDY: 05/15/2021 from [facility] FINDINGS: Bone densitometry was performed using a [employer] unit. Sites measured included the spine and [...] prevention. 5. Avoidance of tobacco and alcohol. Celia Oscar MD IMG DXA ORDERABLES Final Resul t from Last 3 Months or Most Recently Relevant to Health [place] [address] MEDICARE PART A B BLUE CROSS/BLUE SHIELD Care Teams It Investment/Portfolio Manager Relationship Specialty Start Date End Date Celia Oscar MD [address] [place] [phone] PCP - General General Internal Medicine 12/27/24
--- OUTSIDE RECORDS SUMMARY | 2025-06-13 11:44 | XMS_ITS | Encounter Summary ---
Author Organization [employer] ([place], [place], [place], [place]) Address [address] [place] [address] Care Team Providers Care Ocularist Name Role Phone Celia Oscar MD Primary Care Provider [phone] Celia Oscar MD Primary Care Provider [phone] Encounter Details Date Type Department Care Team (Late st Contact Info) Description 03/08/2021 Transcribed Document [facility] [place] [address] [place] [address] ProviderJose MD [address] [place] [address] Social History Tobacco Use Types Packs/Day Years Used Date Smoking Tobacco: Never Assessed Comments Unknown Sex and Gender Information Value Date Recorded Sex Assigned at Not on file Legal Sex Female 12:31 PM CDT Gender Identity Not on file Sexual Orientation Not on file documented as of this encounter Miscellaneous Notes * Cerner Conversion Note - Jose ProviderMD - 03/08/2021 10:50 AM CDT Evaluation, Physical Therapy Entered On: 03/08/2021 13:17 EDT Performed On: 03/08/2021 13:09 EDT by ANA MARIE, PT General Information, PT Visit Type, PT : Initial evaluation Patient Orders : Order Date Order Ordering 03/08/2021 10:43 PT Evaluation and Treatment Ordered By: NE SHULTZ MD-ORT 03/08/2021 10:50 PT Evaluation and Treatment Ordered By: NE SHULTZ MD-ORT Active Diagnoses : No Qualifying Diagnoses Therapy Diagnosis, PT : reduced mobility Admission Date : 03/08/2021 04:28 Co-treated by, PT : Occupational Therapist Personal Devices : Personal Devices No Devices Recorded Assistive Devices : Assistive Devices No Devices Recorded Precautions in Place : Fall prevention measures, Spinal Precautions General Information Comment, PT : Pt is s/p L3-[address] Shultz (03-08-21) ANA MARIE, PT - 03/08/2021 13:09 EDT General Status Patient Received Status : Supine in bed Treatment Start Time : 03/08/2021 11:29 EDT Patient Left Status : Supine in bed, Sitting edge of bed, Family/Visitors at bedside, All needs met and within reach RN/PCT Informed Comment : RN ok'd PT Treatment End Time : 03/08/2021 11:51 EDT Treatment Time : 22 Minute(s) ANA MARIE, PT - 03/08/2021 13:09 EDT History and Environment Living Situation, Therapy : Home Patient Lives With : Spouse Persons Providing Information : Patient Home Equipment Therapy, PT : None Home Setup : One story Stairs : Yes Stair Location(s) : Inside Stairs Inside Comment : 3 steps inside home den to kitchen , pt enters her home through the den and then can stay on main level with bedroom/bathroom ANA MARIE, PT - 03/08/2021 13:09 EDT Prior Level of Function PT GRID Prior LOF Ambulation, Household : Independent Prior LOF Ambulation, Community : Independent Prior LOF Bed Mobility : Independent Prior LOF Toileting : Independent Prior LOF Transfer : Independent ANA MARIE, PT - 03/08/2021 13:09 EDT Upper Extremity Right UE Active ROM : WFL Right UE Strength : WFL Left UE Active ROM : WFL Left UE Strength : WFL ANA MARIE, PT - 03/08/2021 13:09 EDT Lower Extremity RLE Active ROM : WFL Right LE Strength : WFL LLE Active ROM : WFL Left LE Strength : WFL ANA MARIE, PT - 03/08/2021 13:09 EDT Functional Mobility Mobility Grid Supine to Sit : Supervision/set-up Sit to Stand : Supervision/set-up Stand to Sit : Supervision/set-up ANA MARIE, PT - 03/08/2021 13:09 EDT Functional MobilityComment : Cues for following precautions with no bending, lifting, and twisting with functional tasks. ANA MARIE, PT - 03/08/2021 13:09 EDT Gait Training/Assessment, PT Gait Assistance Level : Supervision Walking Distance : 150ft Ambulatory Devices : Gait belt Gait Deviations : No Gait Training Comment : Number of Stairs : 1 Stair(s) Assist Devices : Gait belt Stair Assist : Assist, minimal ANA MARIE, PT - 03/08/2021 13:09 EDT Neuromuscular Reeducation, PT Balance Comment : -Good for static and dynamic sitting and standing ANA MARIE, PT - 03/08/2021 13:09 EDT Neurological/Sensory Overall Sensory Response : Intact Response to Pain : Intact ANA MARIE, PT - 03/08/2021 13:09 EDT Cognition Assessment, PT Orientation : Oriented x 4 Attention Assessment : Present ANA MARIE PT - 03/08/2021 13:09 EDT Edu Topics Physical Therapy Education Grid Gait Training : Verbalizes understanding Home Program/Exercises : Verbalizes understanding Role of Physical Therapy : Verbalizes understanding Safety : Verbalizes understanding Transfer Training : Verbalizes understanding ANA MARIE, PT - 03/08/2021 13:09 EDT Indication Assesessment, PT Physical Therapy Indicated : No Physical Therapy Not Indicated : Other: d/c today ANA MARIE, PT - 03/08/2021 13:09 EDT Plan of Care, PT PT Tx Plan/Goals Established w Patient : Yes ANA MARIE, PT - 03/08/2021 13:09 EDT Treatment Note Subjective Comment : Pt agreeable to PT eval. Patient's Response to Treatment : Good Additional Objective Information : -given spine precautions handout and explained including precautions Assessment : Pt is doing well with functional tasks including gait, transfers, and stairs. She is safe to return home with . No further PT required. ANA MARIE PT - 03/08/2021 13:09 EDT Pain Assessment Pain Scaled Used : 0-10 Pain scale Pain Score Pre-Intervention : 4 Pain Score During-Intervention : 4 Pain Score Post-Intervention. : 4 Pain Comment : back pain, RN aware FRANK ANA James, PT - 03/08/2021 13:09 EDT Image 1 - Images currently included in the form version of this document have not been included in the text rendition version of the form. Anticipated Discharge Needs, OT/PT Anticipated Discharge to : Outpatient rehabilitation Recommend Continued Therapy at Discharge : Yes ANA MAIRE, PT - 03/08/2021 13:09 EDT [place] PT Charges PT Ther Activities Ea 15 Min : 1 PT Eval Low Complexity : 1 ANA MARIE, PT - 03/08/2021 13:09 EDT Electronically signed by [facility] Conversion Bundle Person Cerner at 01/29/2023 7:19 PM CDT documented in this encounter Plan of Treatment Upcoming Encounters Date Type Department Care Team (Late st Contact Info) Description 12/26/2025 12:45 PM EDT Office Visit [address] [phone] Enrique Barrera MD [address] [place] [address] 05/11/2026 1:30 PM EDT Appointment [address] [place] [phone] documented as of this encounter Visit Diagnoses Not on filedocumented in this encounter Care Teams Ocularist Relationship Specialty Start Date End Date Celia Oscar MD [address] [facility] 2 [place] [address] PCP - General General Internal Medicine 11/24/2211/12 Celia Oscar MD [address] [facility] 2 [place] [address] PCP - General General Internal Medicine 12/27/24 documented as of this encounter
--- OUTSIDE RECORDS SUMMARY | 2025-06-13 11:44 | XMS_ITS | Encounter Summary ---
Author Organization Healthcare Address [address] [place] [address] Care Team Providers Care Biztalk Administrator Name Role Phone Celia Oscar MD Primary Care Provider [phone] Yoan Castaneda MD Unavailable [phone] Encounter Details Date Type Department Care Team (Latest Contact Info) Description 05/05/2025 Travel Social History Tobacco Use Types Packs/Day Years [...] and heating? Not hard at all 03/22/2025 [facility] - Occupational Stress Questionnaire Answer Date Recorded [...] PM EST documented as of this encounter Functional Status * Over the [...] Nancy Vallecillo documented as of this encounter Plan of Treatment Upcoming Encounters Date Type Department Care Team (Late st Contact Info) Description 07/12/2025 1:00 PM EDT Ovarian Cancer Screening [facility] [address] [place] [address] 07/25/2025 11:50 AM EDT Clinical Support Medical Office Building Lab [address] [place] [address] 08/08/2025 12:20 PM EDT Office Visit [facility] [address] [facility], [address] [place] [address] Yisel Louie PA [address] [facility] [address] [place] [address] 03/26/2026 7:45 AM EDT Office Visit [facility] [address] [facility] [place] [address] David Lund MD [address] [facility] [address] [place] [address] documented as of this encounter Visit Diagnoses Not on filedocumented in this encounter Additional Health Concerns Assessment Noted Time A fall risk assessment has been complete d for the patient 05/05/2025 11:49 AM EDT A Body Mass Index follow-up plan has been documented for the patient 05/05/2025 12:11 PM EDT documented as of this encounter Care Teams Biztalk Administrator Relationship Specialty Start Date End Date Celia Oscar MD [address] [place] [address] PCP - General 02/22/21 Yoan Castaneda MD [address] [place] [address] Referring Physician Gastroenterology 01/14/22 documented as of this encounter
--- OUTSIDE RECORDS SUMMARY | 2025-06-13 11:44 | XMS_ITS | Encounter Summary ---
Author Organization [employer] ([place], [place], [place], [place]) Address [address] [place] [address] Care Team Providers Care Heat Treat Furnace Operator Name Role Phone Celia Oscar MD Primary Care Provider [phone] Reason for Referral * Mammography (Routine) - Authorized Specialty Diagnoses / Procedures Referred By Contac t Referred To Contact Radiology Diagnoses Visit for screening mammogram Procedures MM digital mammo screen with fran bilateral Celia Oscar MD [address] [place] [address] Phone: tel: fax: [address] [place] [phone] Phone: tel: fax: Referral ID Status Reason Start Date Expiration Date V isits Requested Visits Authorized [id number] Authorized 05/11/2026 05/11/2027 1 1 Encounter Details Date Type Department Care Team (Late st Contact Info) Description 05/09/2025 Outside Orders [facility] Breast [address] [place] [phone] Celia Oscar MD [address] [place] [address] Visit for screening mammogram (Primary Dx) Social History Tobacco Use Types Packs/Day Years Used Date Smoking Tobacco: Never Assessed Family and Community Support Answer Quique e Recorded Help with Day to Day Activities Not on file 10/29/2023 Feeling Lonely or Isolated Not on file 10/29 Educational Attainment Answer Date Danyel rded Speak language other than Guyanese at home Not on file 10/29/2023 Want [...] Description 12/26/2025 12:45 PM EDT Office Visit [address] [phone] Enrique Barrera MD [address] [place] [address] 05/11/2026 1:30 PM EDT Appointment [address] [phone] Scheduled Orders Name Type Priority Associated Diagnoses Orde r Schedule MM digital mammo screen with fran bilateral Imaging Routine Visit for screening mammogram Expected: 05/11/2026, Expires: 05/11/2027 documented as of this encounter Visit Diagnoses Diagnosis Visit for screening mammogram- Primary documented in this encounter Care Teams Heat Treat Furnace Operator Relationship Specialty Start Date End Date Celia Oscar MD [address] [place] [address] PCP - General General Internal Medicine 12/27/24 documented as of this encounter
--- OUTSIDE RECORDS SUMMARY | 2025-06-13 11:44 | XMS_ITS | Encounter Summary ---
Author Organization [employer] ([place], [place], [place], [place]) Address [address] [place] [address] Care Team Providers Care Fourth Grade Teacher Name Role Phone Celia Oscar MD Primary Care Provider [phone] Celia Oscar MD Primary Care Provider [phone] Encounter Details Date Type Department Care Team (Late st Contact Info) Description 03/08/2021 Transcribed Document [facility] [place] [facility] [place] [address] ProviderJose MD [address] [place] [address] Social History Tobacco Use Types Packs/Day Years Used Date Smoking Tobacco: Never Assessed Comments Unknown Sex and Gender Information Value Date Recorded Sex Assigned at Not on file Legal Sex Female 12:31 PM CDT Gender Identity Not on file Sexual Orientation Not on file documented as of this encounter Miscellaneous Notes * Cerner Conversion Note - Jose ProviderMD - 03/08/2021 10:43 AM CDT Evaluation, Occupational Therapy Entered On: 03/08/2021 12:10 EDT Performed On: 03/08/2021 11:51 EDT by ZACH JEONG OTR/Jolynn General Information, OT Visit Type, OT : Initial evaluation Patient Orders : Order Date Order Ordering 03/08/2021 10:43 OT Evaluation and Treatment Ordered By: NE SHULTZ MD-ORT 03/08/2021 10:50 OT Evaluation and Treatment Ordered By: NE SHULTZ MD-ORT Active Diagnoses : No Qualifying Diagnoses Therapy Diagnosis, OT : aftercare following lumbar fusion Admission Date : 03/08/2021 04:28 Assisted by, OT : Physical Therapist Personal Devices : Personal Devices No Devices Recorded Assistive Devices : Assistive Devices No Devices Recorded Precautions in Place : Fall prevention measures, Spinal Precautions General Information Comment, OT : pt is a pleasant 75 y.o. female admitted s/p Lumbar fusion and is WBAT with spine precautions ZACH JEONG OTR/Jolynn - 03/08/2021 11:51 EDT General Status Patient Received Status : Long sitting in bed, Other: seen in post op , present Treatment Start Time : 03/08/2021 11:26 EDT Patient Left Status : Sitting edge of bed, RN/PCT informed, Family/Visitors at bedside, All needs met and within reach, Other: pt is post op, RN/PCT Informed Comment : RN ok'd to tx, ID and verified Treatment End Time : 03/08/2021 11:49 EDT Treatment Time : 23 Minute(s) ZACH JEONG OTR/Jolynn - 03/08/2021 11:51 EDT History and Environment, OT Living Situation, Therapy : Home Patient Lives With : Spouse Persons Providing Information : Patient Home Equipment, Therapy : None Home Setup : One story Stairs : Yes Stair Location(s) : Inside Stairs Inside Comment : 3 steps inside home den to kitchen , pt enters her home through the den and then can stay on main level with bedroom/bathroom ZACH JEONG OTR/Jolynn - 03/08/2021 11:51 EDT Prior LOF Bathing, OT : Independent Prior LOF Bed Mobility : Independent Prior LOF Upper Body Dressing, OT : Independent Prior LOF Lower Body Dressing, OT : Independent Prior LOF Toileting : Independent Prior LOF Transfer : Independent Prior LOF Grooming, OT : Independent Prior LOF for IADLs, OT : Independent ZACH JEONG OTR/Jolynn - 03/08/2021 11:51 EDT Upper Extremity Right UE Active ROM : WFL Right UE Strength : WFL Left UE Active ROM : WFL Left UE Strength : WFL ZAHC JEONG OTR/Jolynn - 03/08/2021 11:51 EDT Self Care/Home Management, OT Upper Body Dressing Assist Level, OT : Independent, complete Upper Body Dressing Device Comment, OT : seated Lower Body Dressing Assist Level, OT : Assist, minimal Lower Body Dressing Device Comment, OT : pt education on LB dressing techniques and safety, maintaining spine precautions. pt dons underwear and pants with setup and cues Toileting Assist Level : Supervision or set-up Toileting Device : Grab bars Toilet Transfer Assist Level : Supervision or set-up Toilet Transfer Device : Belt, gait, Grab bars Bed/Chair/WC Transfer Assist Level : Supervision or set-up Bed/Chair/WC Transfer Device : Belt, gait Bed/Chair/WC Device Comment : transfer back to bed ZACH JEONG OTR/Jolynn Clarke 03/08/2021 11:51 EDT Mobility Device/Prosthesis/Wt Bearing Weight Bearing Status : As tolerated Functional Mobility Device : Gait belt ZACH JEONG OTR/Jolynn Clarke 03/08/2021 11:51 EDT Functional Mobility Mobility Grid Supine to Sit : Supervision/set-up (Comment: cues for log roll and spine precautions [ZACH JEONG OTR/Jolynn Clarke 03/08/2021 11:51 EDT] ) Sit to Stand : Supervision/set-up Bed to Chair : Supervision/set-up Stand to Sit : Supervision/set-up ZACH JEONG OTR/Jolynn Clarke 03/08/2021 11:51 EDT Functional MobilityComment : gait belt donned, pt progresses from CGA to SBA for transfers and functional mobility , transfer to toilet SBA and back to EOB SBA . cues for safety and maintaining spine precautions ZACH JEONG OTR/Jolynn Clarke 03/08/2021 11:51 EDT Activity Tolerance, OT Activity Comment : fair ZACH JEONG OTR/Jolynn Clarke 03/08/2021 11:51 EDT Neurological/Sensory Overall Sensory Response : Intact ZACH JEONG OTR/Jolynn Clarke 03/08/2021 11:51 EDT Cognition Assessment, OT Orientation : Oriented x 4 ZACH JEONG OTR/Jolynn Clarke 03/08/2021 11:51 EDT Education OT Occupational Therapy Education Grid Activity of Daily Living Training : Verbalizes understanding, Returns demonstration Caregiver Training : Verbalizes understanding Functional Mobility Training : Verbalizes understanding, Returns demonstration Precaution/Contraindication : Verbalizes understanding (Comment: spine precautions [ZACH JEONG OTR/Jolynn - 03/08/2021 11:51 EDT] ) Occupational Therapy, Other : Verbalizes understanding ADENIKEZACHCARON/Jolynn - 03/08/2021 11:51 EDT Indication Assessment, OT Occupational Therapy Indicated : No Occupational Therapy Not Indicated : No skilled services indicated ADENIKE CARON SERRANO/Jolynn - 03/08/2021 11:51 EDT Plan of Care, OT OT Tx Plan/Goals Established w Patient : No Reason OT Treatment/Plan Not Established : no further acute care OT needs Other OT Treatment Provided This Date : eval 8 minutes ADL 15 minutes- ADL training , transfer/mobility, home safety and pt/caregiver education ADENIKE CARON SERRANO/Jolynn - 03/08/2021 11:51 EDT Treatment Note Subjective Comment : pt agrees to tx Patient's Response to Treatment : pt nauseated RN informed Additional Objective Information : eval 8 ADL 15 Assessment : no further acute care OT needs Plan for Treatment : pt will be discharging home with her who can assist as needed ADENIKE CARON SERRANO/Jolynn - 03/08/2021 11:51 EDT Pain Assessment Pain Scaled Used : 0-10 Pain scale Pain Score Pre-Intervention : 4 Location : Back, lower Pain Comment : nurse aware ADENIKE CARON SERRANO/Jolynn - 03/08/2021 11:51 EDT Image 1 - Images currently included in the form version of this document have not been included in the text rendition version of the form. [facility] OT Charges OT Selfcare/Hm Mgmt Ea 15 Min : 1 OT Eval Low Complexity : 1 ZACH JEONG OTR/Jolynn - 03/08/2021 11:51 EDT Electronically signed by Arturo Sykes Conversion Electroneurodiagnostic Technologist Vamshiner at 01/29/2023 7:02 PM CDT documented in this encounter Plan of Treatment Upcoming Encounters Date Type Department Care Team (Late st Contact Info) Description 12/26/2025 12:45 PM EDT Office Visit [address] [phone] Enrique Barrera MD [address] [place] [address] 05/11/2026 1:30 PM EDT Appointment [address] [place] [address] documented as of this encounter Visit Diagnoses Not on filedocumented in this encounter Care Teams Fourth Grade Teacher Relationship Specialty Start Date End Date Celia Oscar MD [address] [place] [address] PCP - General General Internal Medicine 11/24/2211/12 Celia Oscar MD [address] [place] [address] PCP - General General Internal Medicine 12/27/24 documented as of this encounter
--- OUTSIDE RECORDS SUMMARY | 2025-06-13 11:44 | XMS_ITS | Encounter Summary ---
Author Organization [facility] Address [address] [facility], [address] [place] [address] Care Team Providers Care Foreign Law Consultant Name Role Phone Sonal Hamm MD Primary Care Provider [phone] Reason for Visit * Reason Comments Other Encounter Details Date Type Department Care Team (Late st Contact Info) Description [facility] [address] [place] [address] Sonal Hamm MD [address] [facility] [address] [place] [address] Other Social History Tobacco Use Types Packs/Day Years [...] as of this encounter Plan of Treatment Not on file documented as of this encounter Visit Diagnoses Not on filedocumented in this encounter Care Teams Foreign Law Consultant Relationship Specialty Start Date End Date Sonal Hamm MD PCP - General Family Medicine 11/23/12 documented as of this encounter
--- OUTSIDE RECORDS SUMMARY | 2025-06-13 11:44 | XMS_ITS | Encounter Summary ---
Author Organization [employer] ([place], [place], [place], [place]) Address [address] [address] Care Team Providers Care Flatbed Press Operator Name Role Phone Celia Oscar MD Primary Care Provider [phone] Celia Oscar MD Primary Care Provider Encounter Details Date Type Department Care Team (Late st Contact Info) Description 03/08/2021 Transcribed Document [facility] [place] [address] ProviderJose MD [address] [place] [address] Social History Tobacco Use Types Packs/Day Years Used Date Smoking Tobacco: Never Assessed Comments Unknown Sex and Gender Information Value Date Recorded Sex Assigned at Not on file Legal Sex Female 12:31 PM CDT Gender Identity Not on file Sexual Orientation Not on file documented as of this encounter Miscellaneous Notes * Cerner Conversion Note - Jose Evans MD - 03/08/2021 8:11 AM CDT [facility] Main OR PreOp Summary Primary Physician: NE SHULTZ MD-ORT Finalized Date/Time: 03/12/21 14:44:11 Pt. Name: CYDNEY HAN /Sex: 1945 Female Med Rec #: [id number] Physician: NE SHULTZ MD-ORT Financial #: [id number] Pt. Type: O Room/Bed: [facility]/1 Admit/Disch: 03/08/21 04:28:00 - 03/08/21 12:00:00 Institution: [facility] PreOp Case Times Entry 1 In Preop 03/08/21 05:25:00 Ready for Holding n/a Room Patient Ready for 03/08/21 07:19:00 Surgery Patient Out of Preop 03/08/21 07:30:00 Patient Out of n/a Holding Room Last Modified By: Mary Olievros RN 03/12/21 14:44:08 [facility] PreOp Case Times Audit 03/12/21 14:44:08 Shearer Screen Measurer And Trimmer: YONATHAN Modifier: RAI <+> 1 Patient Out of Preop 03/08/21 07:14:58 Shearer Screen Measurer And Trimmer: YONATHAN Modifier: YONATHAN <+> 1 Patient Ready for Surgery Finalized By: Mary Oliveros, RN Document Signatures Signed By: Mary Oliveros RN 03/12/21 14:44 Electronically signed by [facility] Conversion Area Coordinator Cerner at 01/29/2023 7:04 PM CDT documented in this encounter Plan of Treatment Upcoming Encounters Date Type Department Care Team (Late st Contact Info) Description 12/26/2025 12:45 PM EDT Office Visit [address] [phone] Enrique Barrera MD [address] [place] [address] 05/11/2026 1:30 PM EDT Appointment [address] [place] [phone] documented as of this encounter Visit Diagnoses Not on filedocumented in this encounter Care Teams Flatbed Press Operator Relationship Specialty Start Date End Date Celia Oscar MD [address] [place] [address] PCP - General General Internal Medicine 11/24/2211/12 Celia Oscar MD [address] [place] [address] PCP - General General Internal Medicine 12/27/24 documented as of this encounter
--- OUTSIDE RECORDS SUMMARY | 2025-06-13 11:44 | XMS_ITS | Clinical Summary ---
Author Organization [facility] Address [address] [place] [address] Care Team Providers Care Volunteer Services Supervisor Name Role Phone Celia Oscar MD Primary Care Provider [phone] Yoan Castaneda MD Unavailable [phone] Allergies Active Allergy Reactions Criticality Noted Date Comments Bee Venom Other - please document in the comment field Low 02/03/2022 Swollen Codeine Other - please document in the comment field Low 09/05/2013 Propoxyphene Unknown - Patient states they do not know rxn details Low 11/25/2021 Ephedrine Unknown - Patient states they do not know rxn details Low 09/05/2013 Hymenoptera Venom Preparations Unknown - Patient states they do not know rxn details Low 12/11/2010 Allergic to bee stings Levofloxacin Other - please document in the comment field Low 12/11/2010 deathly ill Nitrofurantoin Rash Medium 10/25/2012 Other Anaphylaxis,Other - please document in the comment field High 12/11/2010 Allergic to bee stings Pravastatin Other - please document in the comment field Low 08/20/2015 Sulfa Drugs Unknown - Patient states they do not know rxn details,Hives,Itch ing Medium 08/04/2006 Sulfamethoxazole-Trimet hoprim Other - please document in the comment field Low 08/11/2014 sulfamethoxazole / trimethoprim Medications olopatadine (Patanol) 0.1 % ophthalmic solution Administer 1 drop into both eyes if needed. 11/09/19 22 Active lisinopril 30 MG tablet Take 1 tablet (30 mg) by mouth 1 (one) time each day. 09/21/20 Active simvastatin (Zocor) 20 MG tablet Take 0.5 tablets (10 mg) by mouth 2 (two) times a day. 09/21/20 Active amLODIPine (Norvasc) 5 MG tablet Take 2 tablets (10 mg) by mouth every night. 09/21/20 Active zolpidem (Ambien) 5 MG tablet Take 1 tablet (5 mg) by mouth every night. 11/07/19 Active fluticasone (Flonase) 50 MCG/ACT nasal spray Administer 2 sprays into each nostril 1 (one) time each day if needed. 09/21/[address] capsule Take 1 capsule (40 mg) by mouth every night. 06/27/20 Active ondansetron ODT (Zofran-ODT) 8 MG disintegrating tablet DISSOLVE 1 TABLET ON TONGUE EVERY 6 HOURS NEEDED Active pancrelipase, Edm-Oxaz-Blys, (Creon) 01899-34156 units capsule Take 2 capsules by mouth 3 (three) times a day with meals. 04/15/20 Active montelukast (Singulair) 10 MG tablet Take 1 tablet (10 mg) by mouth every night. 06/27/20 Active EPINEPHrine (Epipen) 0.3 MG/0.3ML injection syringe INJECT 1 SYRINGE INTO THE MUSCLE ONCE A DAY NEEDED FOR ANAPHYLAXIS Active tirzepatide (Mounjaro) 5 MG/0.5ML solution pen-injector solution pen-injector Inject 0.5 mL (5 mg) under the skin 1 (one) time per week. Takes on Thursday01/11/20 24 Active Multiple Vitamins-Minerals (PRESERVISION AREDS 2 PO) Take 1 capsule by mouth 2 (two) times a day. Active Ubiquinone (ULTRA COQ10 PO) Take 400 mg by mouth 1 (one) time each day. Active MAGNESIUM OXIDE PO Take 1,200 mg by mouth every night. Active Pediatric Multivit-Minerals (FLINTSTONES GUMMIES PO) Take 2 Chewable tablet by mouth 1 (one) time each day. Active Cholecalciferol (VITAMIN D-3 PO) Take 4,000 Units by mouth 1 (one) time each day. Active Biotin w/ Vitamins C & E (HAIR SKIN & NAILS GUMMIES PO) Take by mouth 1 (one) time each day. 2 gummies Active Multiple Vitamins-Minerals (ZINC PO) Take 44 mg by mouth 1 (one) time each day. Active cyanocobalamin 1000 MCG tablet Take 1 tablet (1,000 mcg) by mouth 1 (one) time each day. Active ascorbic acid (vitamin C with blanca hips) 500 MG tablet Take 1 tablet (500 mg) by mouth 1 (one) time each day. Active B Complex Vitamins (VITAMIN-B COMPLEX PO) Take 1 tablet by mouth 1 (one) time each day. Active hydrocortisone 2.5 % cream Apply 1 Application topically 2 (two) times a day. 09/17/20 24 Active Mounjaro 5 MG/0.5ML solution auto-injector solution pen-injector 09/25/20 24 Active loratadine (Claritin) 10 MG tablet TAKE 1 TABLET EVERY DAY NEEDED 09/30/20 24 Active hydroCHLOROthiazid e (HYDRODiuril) 25 MG tablet Take 1 tablet by mouth daily. 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 05/19/2022 Diverticulosis 11/25/2021 GERD (gastroesophageal reflux disease) Hyperlipidemia 11/25/2021 Hypertension 11/25/2021 Insomnia 11/25/2021 Osteoporosis 05/23/2021 Overview (12/01/2023): hip; osteopenia wrist Assessment & Plan (03/23/2025 7:54 AM EDT): 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 09/03/2020 Urinary urgency 08/05/2017 Non-toxic uninodular goiter 02/26/2016 Vasomotor rhinitis 02/26/2016 Resolved Problems Problem Noted Date Diagnosed Date Resolved Date Acute sinusitis 05/20/2024 10/27/2024 Nausea 05/20/2024 10/27/2024 Pain in throat 05/20/2024 10/27/2024 Cough 05/10/2024 10/27/2024 Neck pain 03/22/2024 10/27/2024 Shoulder pain 03/22/2024 10/27/2024 Non-ulcer dyspepsia 11/25/2021 08/11/20 24 Encounters Date Type Department Care Team Description 05/05/2025 11:20 AM EDT Office Visit [facility] [address], [address] [place] [address] Yisel Louie PA Age-related osteoporosis without current pathological fracture (Primary Dx); Hyperparathyroidism ([facility]/HCC) 05/05/2025 Travel 04/21/2025 Travel 03/22/2025 1:00 PM EDT Office Visit [facility] [address], [address] [place] [address] Nida Mcdaniels APRN S/P subtotal parathyroidectomy (Primary Dx); Age-related osteoporosis without current pathological fracture 03/22/2025 Travel 03/20/2025 7:45 AM EDT Office Visit [facility] [address] [place] [address] David Lund MD 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 (Primary Dx); Type 2 diabetes mellitus without complication, without long-term current use of insulin 03/20/2025 6:40 AM EDT Ancillary Procedure [facility] [address] [place] [address] 03/20/2025 Travel from Last 3 Months Immunizations Immunization Administration Dates Next Due Hep A, Adult 02/10/2019,08/12/2018 Hep A, Unspecified 03/10/2019,08/12/2018 Influenza Vaccine, Quadrival ent, Adjuvanted 06/30/2023 Influenza, Unspecified 07/24/2021,2017,08/13/2016,08/03,07/19/2012,08/25/2011 Influenza, injectable, quadrivalent 07/15/2022 Influenza, injectable, quadr ivalent, preservative free 07/28/2020 Influenza, seasonal, injectable 07/19/2012 Influenza, trivalent, adjuvanted 07/28/2024,07/12 Pneumococcal 20-ezequiel Conj Vaccine 07/15/2022 Pneumococcal Conjugate PCV 13 03/12/2015 Pneumococcal Conjugate PCV 7 08/05/2013 Pneumococcal Polysaccharide PPV23 07/12/2014 Rsvpref, Recombinant, Protei n Subunit, Adjuvent 07/14/2023 Tdap 08/08/2024,07/19/2014 Zoster, Recombinant 06/09/2019,04/06/2019 Zoster, live 04/11/2010 Family History Medical History Relation Name Comments Cataracts Brother AJ Hypertension Brother AJ Cancer Father Johnny Other cancer Father Johnny Stroke Father Johnny Diabetes Maternal Grandmother Bela Glaucoma Maternal Grandmother Bela Other cancer Maternal Grandmother Bela Stroke Maternal Grandmother Bela Arthritis Mother Jeanne Diabetes Mother Jeanne Heart disease Mother Jeanne Hypertension Mother Jeanne Arthritis Sister 1 Jendra Cataracts Sister 1 Jendra Diabetes Sister 1 Jendra Hypertension Sister 1 Jendra Hypothyroidism Sister 1 Jendra Kidney disease Sister 1 Jendra Macular degeneration Sister 1 Jendra Retinal detachment Sister 1 Jendra Thyroid disease Sister 1 Jendra Vision loss Sister 1 Jendra Cataracts Sister 2 Dania Diabetes Sister 2 Dania Hypertension Sister 2 Dania Hypothyroidism Sister 2 Dania Kidney disease Sister 2 Dania Retinal detachment Sister 2 Dania Thyroid disease Sister 2 Dania Anesthesia problems Neg Hx Malig Hyperthermia Neg Hx Relation Name Status Comments Brother AJ Father Johnny Maternal Grandmother Bela Mother Jeanne Sister 1 Jendra Sister 2 Dania Social History Tobacco Use Types Packs/Day Years [...] and heating? Not hard at all 03/22/2025 [facility] - Occupational Stress [...] the past 12 months has th e [employer], gas, oil, or water company threatened to shut off services in your home? No 03/22/2025 PHQ-2A Answer Date Recorded Depression Risk 0 10/07/2023 Comments No Sex and Gender Information Value Date Recorded Sex Assigned at Female 11/15/2021 5:16 PM EST Legal Sex Female 8:45 PM EDT Gender Identity Female 11/15/2021 5:16 PM EST Sexual Orientation Straight 11/15/2021 5: 16 PM EST Last Filed Vital Signs Vital Sign Reading [...] Mass Index 30.22 05/05/2025 11:40 AM EDT Plan of Treatment Upcoming Encounters Date Type Department Care Team (Late st Contact Info) Description 07/12/2025 1:00 PM EDT Ovarian Cancer Screening [facility] [address] [place] [address] 07/25/2025 11:50 AM EDT Clinical Support Medical Office Building Lab [address] [place] [address] 08/08/2025 12:20 PM EDT Office Visit [facility] [address], [address] [place] [address] Yisel Louie PA [address] [place] [address] 03/26/2026 7:45 AM EDT Office Visit [facility] [address] [place] [address] David Lund MD [address] [facility] [address] [place] [address] Health Maintenance Due Date Last Done Comments [facility]-Hepatitis C Screening 1945 [facility]-Medicare Annual Wellness (AWV) 1945 [facility]-/Child/Adol SDOH Screenings 1945 Diabetes: Dental Exam 1956 [facility]- SDOH Screenings 1964 [facility]-Adult SDOH Screenings 1963 [id number] Vaccine ( season) 2024 08/09/2021, 11/14/2020, 10/17/2020 [facility]-Influenza Vaccine (#1) 06/12/202507/28, 06/30/2023, 07/15/2022, Additional history exists [facility]-Diabetes: Hemoglobin A1C 06/29/2025 12/30/2024, 08/10/2024, 03/09/2024 [facility]-Bone Density Scan 12/30/2025 12/30/2024 , 05/18/2023, 05/15/2021 [facility]-Depression Screening 05/05/2026 05/05/2025, 09/12 [facility]-DTaP,Tdap,and Td Vaccines (3 - Td or Tdap) 08/08/2034 08/08/2024, 07/19/2014 [facility]-Hepatitis A Vaccines Completed 019, 02/10/2019, 08/12/2018, Additional history exists [facility]-Zoster Vaccines Completed 06/09/2019, 04/06/2019, 04/11/2010 [facility]-Pneumococcal Vaccine: 50+ Years Completed 07/15/2022, 03/12/2015, 07/12/2014, Additional history exists [facility]-RSV Vaccine: 60+ Years or Completed 07/14/2023 [facility]-Breast Cancer Screening Discontinued 05/04/2024, 05/04/2024, 04/30/2023, Additional history exists [facility]-Obesity Intervention Completed 025, 03/20/2025, 12/30/2024, Additional history exists HPV Vaccines Aged Out No longer eligi ble based on patient's age to complete this topic [facility]-HIB Vaccines Aged Out No longer e ligible based on patient's age to complete this topic [facility]-IPV Vaccines Aged Out No longer e ligible based on patient's age to complete this topic [facility]-Rotavirus Vaccines Aged Out No lo nger eligible based on patient's age to complete this topic Procedures Procedure Name Priority Date/Time Associated Diagnosis Comments IONIZED CALCIUM, SERUM Routine 04/21/2025 1:18 PM EDT Age-related osteoporosis without current pathological fracture Hyperparathyroidism (CMS/HCC) PTH INTACT TOTAL Routine 04/21/2025 1:18 PM EDT Age-related osteoporosis without current pathological fracture Hyperparathyroidism (CMS/HCC) RENAL FUNCTION PANEL, PLASMA Routine 04/21/2025 1:18 PM EDT Age-related osteoporosis without current pathological fracture Hyperparathyroidism (CMS/HCC) BONE SPECIFIC ALKALINE PHOSPHATASE Routine 04/21/2025 1:18 PM EDT Age-related osteoporosis without current pathological fracture Hyperparathyroidism (CMS/HCC) C-TELOPEPTIDE Routine 04/21/2025 1:18 PM EDT Age-related osteoporosis without current pathological fracture Hyperparathyroidism (CMS/HCC) VITAMIN D 25 HYDROXY Routine 04/21/2025 1:18 PM EDT Age-related osteoporosis without current pathological fracture Hyperparathyroidism (CMS/HCC) PTH PANEL 1 Routine 04/21/2025 1:18 PM EDT Age-related osteoporosis without current pathological fracture Hyperparathyroidism (CMS/HCC) VITAMIN D, 1, 25-DIHYDROXY Routine 04/21/2025 1:18 PM EDT Age-related osteoporosis without current pathological fracture Hyperparathyroidism (CMS/HCC) TOTAL CALCIUM, PLASMA Routine 03/22/2025 10:53 AM EDT S/P subtotal parathyroidectomy Age-related osteoporosis without current pathological fracture PTH INTACT TOTAL Routine 03/22/2025 10:5 3 AM EDT S/P subtotal parathyroidectomy Age-related osteoporosis without current pathological fracture OCT, RETINA - OU - BOTH EYES Routine 03/20/2025 8:30 AM EDT 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 HEMOGLOBIN A1C Routine 12/30/2024 9:43 AM EDT Type 2 diabetes mellitus with hyperosmolarity without coma, without long-term current use of insulin ([facility]) DEXA BONE DENSITY Routine 12/30/2024 8:2 3 AM EDT Age-related osteoporosis without current pathological fracture from Last 3 Months or Most Recently Relevant to Health Maintenance Results * Bone Specific Alkaline Phosphatase (04/21/2025 1:18 PM EDT) Pathologist [facility] Bone Specific Alkaline Phosphatase 17.2 ug/L 04/21/2025 4:33 PM EDT [facility] Comment: BSAP (Ostase) Reference Values, Female, age 18 years and up: Premenopausal: 4.5 to 16.9 ug/L Postmenopausal: 7.0 to 22.4 ug/L Blood Venous blood specimen / Unknown Venipuncture / Unknown 04/21/2025 1:18 PM EDT 04/21/2025 1:19 PM EDT [facility] REF LAB BLOOD AND FLUID ORD Final Result Performing Organization Address City/[facility]/ZIP Co de Phone Number [facility] [address] [place] [address] * Ionized calcium, serum (04/21/2025 1:18 PM EDT) Pathologist [facility] Ionized Calcium, Serum 4.9 4.6 - 5.3 mg/dL LAB HEMATOLOGY METHOD 04/21/2025 2:28 PM EDT [facility] Blood Venous blood specimen / Unknown Venipuncture / Unknown 04/21/2025 1:18 PM EDT 04/21/2025 1:19 PM EDT [facility] BLOOD ORDERABLES Final R esult Performing Organization Address City/[facility]/ZIP Co de Phone Number [facility] [address] [place] [address] * C-Telopeptide (04/21/2025 1:18 PM EDT) [facility] C Telopeptide Beta Cross Linked Serum Result 351 pg/mL 04/23/2025 6:07 PM EDT [facility] Blood Venous blood specimen / Unknown Venipuncture / Unknown 04/21/2025 1:18 PM EDT 04/21/2025 1:19 PM EDT Narrative [facility] - 04/23/2025 6:07 PM EDT Premenopausal Females: 136-689 pg/mL Postmenopausal Females: 177-1015 pg/mL REFERENCE INTERVAL: C-Telopeptide, [id number], Serum Access complete set of age- and/or gender-specific reference intervals for this test in the [facility] Test Directory ([employer]). Performed By: [facility] [address] [place] [address] Picking Supervisor: Charlie Bush MD, PhD CLIA Number: [id number] [facility] BLOOD ORDERABLES Final R esult Performing Organization Address City/[facility]/ZIP Co de Phone Number [facility] [address] [place] [address] * Vitamin D 1,25 Dihydroxy (04/21/2025 1:18 PM EDT) [facility] VITAMIN D, 1, 25-DIHYDROXY 36.4 19.9 - 79.3 pg/mL 04/21/2025 6:49 PM EDT [facility] Blood Venous blood specimen / Unknown Venipuncture / Unknown 04/21/2025 1:18 PM EDT 04/21/2025 1:19 PM EDT [facility] BLOOD ORDERABLES Final R esult [facility] [address] [place] [address] * (ABNORMAL) Vitamin D 25 Hydroxy (04/21/2025 1:18 PM EDT) [facility] Vitamin D 25 Hydroxy 80.2(H) 20.0 - 80.0 ng/mL 04/21/2025 4:38 PM EDT [facility] Blood Venous blood specimen / Unknown Venipuncture / Unknown 04/21/2025 1:18 PM EDT 04/21/2025 1:19 PM EDT Narrative [facility] - 04/21/2025 4:38 PM EDT Testing performed on [employer] Examiner, standardized against NIST SRM 2972. When testing samples from patients whose predominant form of vitamin D is vitamin D2, such as patients receiving vitamin D2 supplementation, results that are subtherapeutic should be confirmed with another method, such as LC-MS/MS, before being used for patient management. Vitamin D, 25-Hydroxy reference range, age 18 years and up: Deficiency: <12 ng/mL Insufficiency: 12 to 19 ng/mL Sufficiency: 20 to 80 ng/mL Possible toxicity: >100 ng/mL [facility] BLOOD ORDERABLES Final R esult Performing Organization Address [facility] Co de Phone Number [facility] [address] [place] [address] * PTH Intact Total (04/21/2025 1:18 PM EDT) Only the most recent of2 resultswithin the time period is included. PTH Intact Total 53 9 - 77 pg/mL 04/21/2025 4:46 PM EDT [facility] Blood Venous blood specimen / Unknown Venipuncture / Unknown 04/21/2025 1:18 PM EDT 04/21/2025 1:19 PM EDT Narrative [facility] - 04/21/2025 4:46 PM EDT Assay performed by immunoassay at the [facility]. Performed on Lee Currency Examiner chemiluminescent immunoassay, tractable to the World Health Organization's first international standard for PTH from the NIBSC, Code 79/500. Results obtained from different test methods or kits cannot be used interchangeably. [facility] BLOOD ORDERABLES Final R esult Performing Organization Address City/[facility] Co de Phone Number [facility] [address] [place] [address] * Renal Function Panel, Plasma (04/21/2025 1:18 PM EDT) [facility] Glucose, Plasma 98 74 - 99 mg/dL 04/21/2025 3:21 PM EDT [facility] BUN, Plasma 23 8 - 23 mg/dL 04/21/2025 3:21 PM EDT [facility] Creatinine, Plasma 0.67 0.60 - 1.10 mg/dL 04/21/2025 3:21 PM EDT [facility] BUN/Creatinine Ratio 34 04/21/2025 3:21 PM EDT [facility] Sodium, Plasma 141 136 - 145 mmol/L 04/21/2025 3:21 PM EDT [facility] Potassium, Plasma 4.0 3.6 - 4.9 mmol/L 04/21/2025 3:21 PM EDT [facility] Chloride, Plasma 104 97 - 107 mmol/L 04/21/2025 3:21 PM EDT [facility] CO2, Plasma 27 22 - 29 mmol/L 04/21/2025 3:21 PM EDT [facility] Anion Gap 10 6 - 16 mmol/L 04/21/2025 3:21 PM EDT [facility] Total Calcium, Plasma 9.3 8.9 - 10.2 mg/dL 04/21/2025 3:21 PM EDT [facility] Phosphorus, Plasma 4.1 2.5 - 4.5 mg/dL 04/21/2025 3:21 PM EDT [facility] Albumin, Plasma 4.3 3.5 - 5.2 g/dL 04/21/2025 3:21 PM EDT [facility] eGFRcr 89.6 mL/min/1.7 3m*2 04/21/2025 3:21 PM EDT [facility] Comment:Reported eGFRcr in m L/min/1.73m2 is based the CKD-EPI 2020 equation that does not use a race coefficient. Blood Venous blood specimen / Unknown Venipuncture / Unknown 04/21/2025 1:18 PM EDT 04/21/2025 1:19 PM EDT us [facility] BLOOD ORDERABLES Final R esult Performing Organization Address City/[facility]/ZIP Co de Phone Number [facility] [address] [place] [address] * Total Calcium, Plasma (03/22/2025 10:53 AM EDT) Total Calcium, Plasma 9.5 8.9 - 10.2 mg/dL 03/22/2025 2:53 PM EDT [facility] Blood Venous blood specimen / Unknown Venipuncture / Unknown 03/22/2025 10:53 AM EDT 03/22/2025 10:53 AM EDT us Nida Kowalski Arslan [employer] [facility] BLOOD ORDERABLES Final R esult Performing Organization Address [facility] Co de Phone Number [facility] [address] [place] [address] * OCT, Retina - OU - Both Eyes (03/20/2025 8:30 AM EDT) Anatomical Region Laterality Modality Head Optical Coherenc e Tomography Narrative 03/20/2025 8:30 AM EDT Right Eye Quality was good. Scan locations included subfoveal. Progression has been stable. Left Eye Quality was good. Scan locations included subfoveal. Progression has been stable. us David Lund MD OPHTH TOMOGRAPHY Final Result * Hemoglobin A1c (12/30/2024 9:43 AM EDT) Hemoglobin A1c 5.4 <5.7 % 12/30/2024 2:12 PM EDT [facility] Blood Venous blood specimen / Unknown Venipuncture / Unknown 12/30/2024 9:43 AM EDT 12/30/2024 9:43 AM EDT Narrative [facility] - 12/30/2024 2:12 PM EDT HA1C Interpretive Data: Diagnosis of Diabetes: Diabetic > or = 6.5% Pre-diabetic 5.7 to 6.4% Non-diabetic < or = 5.6% Glycemic Targets for Type I and Type II Diabetics: Non- Adults <7.0% Adults <6.0% Children and Adolescents <7.5% Source: [place] [employer]. Standards of medical care in diabetes,2017. Diabetes Care.2017:40 (suppl 1):S1-S135. HbA1c assay performed by an ion-exchange chromatography method that is certified traceable to the DCCT. [facility] BLOOD ORDERABLES Final R esult [facility] [address] [place] [address] * Dexa Bone Density (12/30/2024 8:23 AM EDT) Anatomical Region Laterality Modality L-spine Radio Fluoroscop y Narrative 01/10/2025 8:52 PM EDT [facility] [address] [place] [address] DXA Bone Densitometry Report: [Date of exam] BMD test performed using the RocketOnXA DXA System (analysis version: 14.10) manufactured by [employer]. REFERRING PROVIDER: SHAHAB Cantu CLINICAL INFORMATION: PATIENT NAME: Karissa Cruz PATIENT AGE: 79 y.o. LEGAL SEX: female RADIOGRAPHIC VIEWS: Sites scanned: AP Spine, HIP Right , HIP Left, and TBS COMPARISON STUDY: DXA Axial Prior studies are not available for comparison and TBS Prior studies are not available for comparison FINDINGS: Based on WHO criteria (post-menopausal female) the diagnosis is Osteoporosis The lowest T score is -3.1 in the bilateral total hips The presence of arthritic or degenerative joint changes in the spine could artefactually increase measured BMD. TBS: The TBS L1-2 of 1.260 indicates partially degraded microarchitecture TREATMENT RECOMMENDATIONS: Measured bone density crosses threshold for treatment of osteoporosis Specific anti-osteoporotic therapy remains indicated given high risk of future fracture Work up for secondary osteoporosis and metabolic bone disease could be considered based on clinical indications. Treatment decisions may be based on clinical considerations. Suggest VFA for complete evaluation. Suggest general measures to optimize calcium and vitamin D status, fall prevention measures and reduce fracture risk. Consider repeating this study in 1 year(s) or as clinically indicated to assess bone density change or response to treatment (should be performed on the same DXA scanner to allow for direct comparison and calculation of change in BMD). [facility] IMG DXA PROCEDURES Final Res ult from Last 3 Months or Most Recently Relevant to Health Maintenance Insurance MEDICARE [facility] Care Teams Volunteer Services Supervisor Relationship Specialty Start Date End Date Celia Oscar MD [facility] [address] [place] [address] PCP - General 02/22/21 Yoan Castaneda MD [address] [place] [address] [place] [address] Referring Physician Gastroenterology 01/14/22
--- OUTSIDE RECORDS SUMMARY | 2025-06-13 11:44 | XMS_ITS | Encounter Summary ---
Author Organization Healthcare Address [address] [place] [address] Care Team Providers Care Freelance Designer Name Role Phone Celia Oscar MD Primary Care Provider [phone] Yoan Castaneda MD Unavailable [phone] Encounter Details Date Type Department Care Team (Latest Contact Info) Description 04/21/2025 Travel Social History Tobacco Use Types Packs/Day Years Used Date Smoking Tobacco: Never Smokeless Tobacco: Never Comments:father smoked Alcohol Use Standard Drinks/Week Comments Never 0 (1 standard drink = 0.6 oz pur e alcohol) PHQ-2 Answer Date Recorded Patient Health Questionnaire-2 Score 0 03/09/2024 Humiliation, Afraid, Rape, and Kick questionnair e [...] and heating? Not hard at all 03/22/2025 [facility] - Occupational Stress [...] PM EST documented as of this encounter Plan of Treatment Upcoming Encounters Date Type Department Care Team (Late st Contact Info) Description 07/12/2025 1:00 PM EDT Ovarian Cancer Screening [facility] [address] , [address] [place] [address] 07/25/2025 11:50 AM EDT Clinical Support Medical Office Building Lab [address] [place] [id number] 08/08/2025 12:20 PM EDT Office Visit [facility] [address] [facility], [address] [place] [address] Yisel Louie PA [address] [place] [address] 03/26/2026 7:45 AM EDT Office Visit [facility] [address] [facility] [place] [address] David Lund MD [address] [facility] [address] [place] [address] documented as of this encounter Visit Diagnoses Not on filedocumented in this encounter Additional Health Concerns Assessment Noted Time A fall risk assessment has been complete d for the patient 03/22/2025 12:54 PM EDT A Body Mass Index follow-up plan has been documented for the patient 03/20/2025 8:32 AM EDT documented as of this encounter Care Teams Freelance Designer Relationship Specialty Start Date End Date Celia Oscar MD [facility] [address] [place] [address] PCP - General 02/22/21 Yoan Castaneda MD [address] [place] [address] Referring Physician Gastroenterology 01/14/22 documented as of this encounter
--- OUTSIDE RECORDS SUMMARY | 2025-06-13 11:44 | XMS_ITS | Clinical Summary ---
Author Organization [facility] Address [address] [place] [address] Care Team Providers Care Chief Underwriter Name Role Phone Pcp, No Primary Care Provider [phone] Source Comments This information has been disclosed to you from confidential records protectedfrom disclosure by state law. You shall make no further disclosure of thisinformation without the specific, written, and informed release of theindividual to whom it pertains, or as otherwise permitted by law. A generalauthorization for the release of medical or other information is not sufficientfor the purposes of therelease of HIV test results or diagnoses. [id number] Health Allergies Active Allergy Reactions Criticality Noted Date Comments Bee Venom Protein (Honey Bee) Other (See Comments) 02/03/2022 Swollen Sulfa (Sulfonamide Antibiotics) Other (See Comments) 02/03/2022 Not sure Medications hydroCHLOROth iazide (HYDRODIURIL) 25 MG tablet hydrochlorothiazide 25 mg tablet TAKE 1 TABLET BY MOUTH EVERY DAY 09/18/20 21 Active lisinopriL (PRINIVIL) 30 MG tablet lisinopril 30 mg tablet TAKE 1 TABLET BY MOUTH EVERY DAY 09/21/20 21 Active CREON 36,000-114,00 0- 180,000 unit CpDR TAKE 2 CAPSULES BY MOUTH THREE TIMES DAILY WITH MEALS 01/15/20 22 Active montelukast (SINGULAIR) 10 mg tablet montelukast 10 mg tablet TAKE 1 TABLET BY MOUTH EVERY EVENING Active amLODIPine besylate, bulk, 100 % Powd Active esomeprazole magnesium (NEXIUM ORAL) Active ondansetron (ZOFRAN) 4 MG tablet ondansetron HCl 4 mg tablet TAKE 1 TABLET BY MOUTH EVERY 8 HOURS NEEDED Active simvastatin (ZOCOR) 20 MG tablet Take 20 mg by mouth daily. 12/21/19 22 Active zolpidem (AMBIEN) 10 mg tablet Ambien 10 mg tablet Bedtime Active Active Problems No known active problems Social History Tobacco Use Types Packs/Day Years Used Date Smoking Tobacco: Never Smokeless Tobacco: Never Comments No Sex and Gender Information Value Date Recorded Sex Assigned at Female 01/16/2022 9:13 PM EDT Legal Sex Female 9:31 AM EDT Gender Identity Female 01/16/2022 9:13 PM EDT Sexual Orientation Straight 01/16/2022 9: 13 PM EDT Last Filed Vital Signs Vital Sign Reading Time Taken Comments Blood Pressure 137/78 02/03/2022 11:15 AM EDT Pulse 90 02/03/2022 10:36 AM EDT Temperature 36.9 C (98.5 F) 02/03/2022 10:36 AM EDT Respiratory Rate 18 02/03/2022 11:15 AM EDT Oxygen Saturation 96% 02/03/2022 11:15 AM EDT Inhaled Oxygen Concentration 96% 02/03/2022 1 1:15 AM EDT Weight - - Height - - Body Mass Index - - Plan of Treatment Health Maintenance Due Date Last Done Comments Alcohol Misuse Screening 1963 Depression Screening 1963 Immunization: RSV (Adult) (1 - 1-dose 75+ series) 2021 Immunization: COVID-19 ( season) 2024 08/09/2021, 11/14/2020, 10/17/2020 Immunization: DTaP/Tdap/Td ( 2 - Td or Tdap) 07/19/2024 07/19/2014 Immunization: Influenza (MyC vasquez) (#1) 2025 07/24/2021, 08/08/2020, 07/28/2020, Additional history exists Immunization: Zoster Completed 06/09/2019, 04/06/2019, 04/11/2010 Immunization: Pneumococcal Completed 08/12, 03/12/2015, 07/12/2014, Additional history exists Insurance MEDICARE A AND B Member Subscriber Plan / Payer (Ef fective 2011-Present) Name:AdeliaYaima franksa Relation to Subscriber:Self Name:AmeYaima sappa Payer ID:[id number] Group ID:Not on file Type:Medicare Address: [address] Care Teams Chief Underwriter Relationship Specialty Start Date End Date Pcp, No No Address PCP - General 01/27/22
--- OUTSIDE RECORDS SUMMARY | 2025-06-13 11:44 | XMS_ITS | Referral Summary ---
Author Organization [employer] ([place], [place], [place], [place]) Address [address] [place] [address] Care Team Providers Care Livestock Rancher Name Role Phone Celia Oscar MD Primary Care Provider [phone] Encounters Date Type Department Care Team Description 05/09/2025 Outside Orders [facility] [address] [facility] [address] [place] [address] Celia Oscar MD Visit for screening mammogram (Primary Dx) 05/09/2025 Travel 05/09/2025 12:55 PM EDT - 05/09/2025 11:59 PM EDT Hospital Encounter [address] [address] Celia Oscar MD Visit for screening mammogram (Primary Dx) Discharge Disposition: Home or Self Care from Last 3 Months Allergies Active Allergy Reactions Criticality Noted Date [...] 0.1 % ophthalmic solution SMARTSIG:In Eye(s) 10/21/19 Active montelukast (SINGULAIR) 10 mg tablet montelukast 10 mg tablet TAKE 1 TABLET BY MOUTH EVERY EVENING Active lisinopriL (PRINIVIL,ZESTRIL) 30 MG tablet Take 1 tablet (30 mg total) by mouth daily. 12/05/19 23 Active Creon 36,000-114,000- 180,000 unit CpDR capsule Take 2 capsules (72,000 units of lipase total) by mouth 3 (three) times daily. 12/09/19 23 Active ketoconazole (NIZORAL) 2 % shampoo daily as needed. 11/07/19 23 Active hydrocortisone 2.5 % cream Apply topically daily as needed. 11/07/19 23 Active hydroCHLOROthiazid e (HYDRODIURIL) 25 MG tablet Take 1 tablet (25 mg total) by mouth daily. 12/05/19 23 Active fluticasone propionate (FLONASE) 50 mcg/actuation nasal spray 2 sprays daily. 11/05/19 23 Active esomeprazole (NexIUM) 40 MG capsule Take 1 capsule (40 mg total) by mouth daily. 12/05/19 23 Active amLODIPine (NORVASC) 5 MG tablet Take 1 tablet (5 mg total) by mouth daily. 12/05/19 23 Active cholecalciferol, vitamin D3, (Vitamin D3) 10 mcg (400 unit) Cap Vitamin D3 Active azelastine (ASTELIN) 137 mcg (0.1 %) nasal spray azelastine 137 mcg (0.1 %) nasal spray aerosol Laura 2 sprays twice a day by intranasal [...] 30 tablet 5 01/11/20 25 025 Active Social History Tobacco Use Types Packs/Day Years Used Date Smoking Tobacco: Never Assessed Family and Community Support Answer Quique e Recorded Help with Day to Day Activities Not on file 10/29/2023 Feeling Lonely or Isolated Not on file 10/29 Educational Attainment Answer Date Danyel rded Speak language other than Korean at home Not on file 10/29/2023 Want [...] Description 12/26/2025 12:45 PM EDT Office Visit [address] [address] Enrique Barrera MD [address] [place] [address] 05/11/2026 1:30 PM EDT Appointment [address] [place] [address] Procedures Procedure Name Priority Date/Time Associated Diagnosis [...] FACTORS: Estrogen deficiency COMPARISON STUDY: 05/15/2021 from [facility] FINDINGS: Bone densitometry was performed using a Think Sky unit. Sites measured included the spine and [...] FACTORS: Estrogen deficiency COMPARISON STUDY: 05/15/2021 from [facility] FINDINGS: Bone densitometry was performed using a Think Sky unit. Sites measured included the spine and [...] of tobacco and alcohol. Celia Oscar MD [facility] DXA ORDERABLES Final Resul t from Last 3 Months or Most Recently Relevant to Health Maintenance Insurance MEDICARE PART A B CROSS/BLUE SHIELD Care Teams Livestock Rancher Relationship Specialty Start Date End Date Celia Oscar MD [address] [facility] [address] [place] [address] PCP - General General Internal Medicine 12/27/24
--- OUTSIDE RECORDS SUMMARY | 2025-06-13 11:44 | XMS_ITS | Clinical Summary ---
Author Organization [facility] Address [address] [place] [address] Care Team Providers Care Care Process Manager Name Role Phone Celia Oscar MD Primary Care Provider [phone] Social History Tobacco Use Types Packs/Day Years Used Date Smoking Tobacco: Never Assessed Abuse Screen Answer Date Recorded Unsafe at Home or Work/School Not on file Feels Threatened by Someone? Not on file 06/2023 Does Anyone Keep You from Co ntacting Others or Doint Things Outside the Home? Not on file 07/20/2023 Physical Sign of Abuse Present Not on file 1 Housing Stability Answer Date Recorded Current Living Arrangements Not on file 06/2023 Potentially Unsafe Housing Conditions Not on aguila e 07/20/2023 Family and Community Support Answer Quique e Recorded Help with Day-to-Day Activities Not on file 07/20/2023 Lonely or Isolated Not on file 07/20/2023 Employment Answer Date Recorded Do you want help finding or keeping work or a yousif b? Not on file 07/20/2023 Disabilities Answer Date Recorded Concentrating, Remembering, or Making Decisions Difficulty Not on file 07/20/2023 Doing Errands Independently Difficulty Not on fi le 07/20/2023 Education Answer Date Recorded Help with school or training? Not on file Preferred Language Not on file 07/20/2023 Comments Unknown Sex and Gender Information Value Date Recorded Sex Assigned at Not on file Legal Sex Female 10:10 AM EDT Gender Identity Not on file Sexual Orientation Not on file Plan of Treatment Health Maintenance Due Date Last Done Comments DXA SCAN 1945 ZOSTER VACCINE (2 of 3) 06/06/2010 04/11/2010 RSV Vaccine - Adults (1 - 1- dose 75+ series) 2021 ANNUAL PHYSICAL 01/03/2022 HEPATITIS C SCREENING 01/03/2022 COVID-19 Vaccine (1 - 2023-2 5 season) 2024 TDAP/TD VACCINES (2 - Td or Tdap) 07/19/2024 014 INFLUENZA VACCINE 07/12/2025 07/05/2018, , 08/13/2016, Additional history exists Pneumococcal Vaccine 50+ Completed 015, 07/12/2014, 08/05/2013 Insurance MEDICARE A & B [facility] Care Teams Care Process Manager Relationship Specialty Start Date End Date Celia Oscar MD [address] [place] [address] PCP - General 02/22/16
--- OUTSIDE RECORDS SUMMARY | 2025-06-13 11:44 | XMS_ITS | Encounter Summary ---
Author Organization [facility] Address [address] [facility], [address] [place] [address] Care Team Providers Care Film Librarian Name Role Phone Sonal Hamm MD Primary Care Provider [phone] Reason for Visit * Reason Comments Other Encounter Details Date Type Department Care Team (Late st Contact Info) Description 01/10/2015 [facility] [address] [place] [address] Sonal Hamm MD [address] [facility] [address] [place] [address] Other Social History Tobacco Use Types Packs/Day [...] on filedocumented in this encounter Care Teams Film Librarian Relationship Specialty Start Date End Date Sonal Hamm MD PCP - General Family Medicine 11/23/12 documented as of this encounter
--- OUTSIDE RECORDS SUMMARY | 2025-06-13 11:44 | XMS_ITS | Encounter Summary ---
Author Organization [employer] [facility] ([place], [place], [place], [place]) Address [address] [place] [address] Care Team Providers Care Metal Furrer Name Role Phone Celia Oscar MD Primary Care Provider [phone] Celia Oscar MD Primary Care Provider [phone] Encounter Details Date Type Department Care Team (Late st Contact Info) Description 02/25/2021 Transcribed Document [facility] [place] [address] ProviderJose MD [address] [place] [address] Social History Tobacco Use Types Packs/Day Years Used Date Smoking Tobacco: Never Assessed Comments Unknown Sex and Gender Information Value Date Recorded Sex Assigned at Not on file Legal Sex Female 12:31 PM CDT Gender Identity Not on file Sexual Orientation Not on file documented as of this encounter Miscellaneous Notes * Cerner Conversion Note - Jose ProviderMD - 02/25/2021 10:41 AM CDT PAT Adult Entered On: 02/25/2021 10:47 EDT Performed On: 02/25/2021 10:41 EDT by Heather Giron RN Vital Measurements Temperature Source : Temporal artery scanning Temperature Mode : Fahrenheit Temperature, Fahrenheit : 99.4 Deg F Clinical Temperature, C : 37.4 Deg C Pulse Method : Non-Invasive BP Device Pulse Source : Radial, Left Peripheral Pulse Rate : 86 bpm Pulse Rhythm : Regular Respiratory Rate : 16 Breaths/Min Blood Pressure Location : Arm, left upper Blood Pressure Source : Non-Invasive BP Device Blood Pressure Position : Sitting Systolic Blood Pressure : 180 mmHg (HI) Diastolic Blood Pressure : 84 mmHg Oxygen Saturation : 95 % Oxygen Therapy Mode : Room air Heather Giron RN - 02/25/2021 10:41 EDT Height and Weight, Clinical Dosing Height Source : Stated Height Entry Format : Bend Height, Feet : 5 ft(Converted to: 152 cm, 60 Inch) Height, Inches : 5.5 Inch(Converted to: 0 ft 6 Inch, 13.97 cm) Clinical Height : 166.37 cm Weight Source : Standing scale Weight Entry Format : Bend Clinical Dosing Weight : 94.09 kg Weight, Pounds : 207 lb Body Surface Area (BSA) : 2.02 m2 Body Mass Index : 34 kg/m2 (HI) [place] Body Weight : 58 kg Heather Giron RN - 02/25/2021 10:41 EDT Health Histories Smoking Status : Never (less than 100 in lifetime; none in last 30 days) Smokeless Tobacco Status : Never Implant/Device Type, Superintendent Overhead Distribution and Model : wrist plate, right dental implants Heather Giron RN - 02/25/2021 10:41 EDT Social History (As Of: 02/25/2021 10:47:25 EDT) Tobacco: Smoking Status Never smoker. (Last Updated: 08/13/2015 12:54:17 EST by Ben Spangler RN) Alcohol: Alcohol Use History No. Use in Last 12 Months: No. (Last Updated: 02/25/2021 10:42:34 EDT by Heather Giron RN) Alcohol Use History No. Use in Last 12 Months: No. (Last Updated: 02/25/2021 10:42:40 EDT by Heather Giron RN) Substance Abuse: Drug Use Hx: No. Use in Last 12 Months: No. (Last Updated: 02/25/2021 10:42:50 EDT by Heather Giron RN) Nutrition/Health: Regular (Last Updated: 02/25/2021 10:42:56 EDT by Heather Giron RN) Infectious Disease History Has the patient ever been tested for COVID-19? : No, Patient stated Does patient have symptoms of COVID-19? : No COVID19 Screening : No Experiencing Infectious Disease Symptoms : No symptoms Physical contact outside [place] in the last 30 days : No Infectious Disease History : Chicken pox/Shingles, Measles, Mononucleosis, Mumps, Rubella, Pertussis (Whooping cough) Tuberculosis Symptoms : None Heather Giron RN - 02/25/2021 10:41 EDT COVID19 PreProcedure Screening Is this an Emergent or Add on Procedure? : No Date PreProcedure COVID-19 test known? : No Has patient been isolated since the test : N/A - PreProcedure, in-person visit Exposed to COVID19 symptoms since test? : N/A - PreProcedure, in-person visit Heather Giron RN - 02/25/2021 10:41 EDT Anesthesia/Transfusion History Family History of Anesthesia Reaction : No prior transfusion(s) Transfusion History : Prior anesthesia without reaction Family History of Anesthesia Reaction : Other: mother severe N/V Heather Giron RN - 02/25/2021 10:41 EDT Advance Directive Patient has Advance Directive *Q : No, patient refuses Advance Directive information Heather Giron RN - 02/25/2021 10:41 EDT [place] Suicide Severity Rating Scale (C-SSRS) CSSRS Past Month Wish to be : No CSSRS Past Month Suicidal Thoughts : No CSSRS Lifetime Suicide Behavior : No Suicide Severity Rating Score : 0 Suicide Severity Rating : No Additional Care Required at this time Heather Giron RN - 02/25/2021 10:41 EDT Psychosocial History Currently in Unsafe Situation : No Heather Giron RN - 02/25/2021 10:41 EDT Teaching/Learning Assessment Barriers To Learning : None evident Individuals Taught : Patient Readiness to Learn : Cooperative Baseline Knowledge of Topic : Limited Readiness to Learn : Explanation, Printed materials Learning Style Preferences Patient : None Learning Style Preferences Family : None Heather Giron RN - 02/25/2021 10:41 EDT Education Topics, Periop Preadmission Perioperative Education Grid IV's : Verbalizes understanding NPO Status/Directions : Verbalizes understanding Pain Management : Verbalizes understanding Postoperative Care Preparations : Verbalizes understanding Preprocedure Preparations : Verbalizes understanding Preprocedure Tests/Labs : Verbalizes understanding Remove Body Piercings : Verbalizes understanding Responsible Adult : Verbalizes understanding Take/Hold Medications Pre-Procedure : Verbalizes understanding Heather Giron RN - 02/25/2021 10:41 EDT General Info Support Person/Pt Rep Name : Dima Paniagua Family/Rep/Phys Notified of Admit : No Emergency Contact #1 : Dima eTague Emergency Contact #1 Emergency Contact #1 Relationship : spouse Emergency Contact #2 : . Emergency Contact #2 Phone Number : . Emergency Contact #2 Relationship : . Primary Language : New Zealander Communication Barrier : None Telesales Manager Needed : No Heather Giron RN - 02/25/2021 10:41 EDT Jua Nalberto Scale Juan Alberto Sensory Perception : No impairment Juan Alberto Moisture : Rarely moist Juan Alberto Activity : Walks occasionally Juan Alberto Mobility : No limitation Juan Alberto Nutrition : Adequate Juan Alberto Friction and Shear : No apparent problem Juan Alberto Score : 21 Heather Giron RN - 02/25/2021 10:41 EDT Sleep Apnea Risk Assmt Hx of Obstructive Sleep Apnea Diagnosis : No Snore Loudly : No Tired, Fatigued, or Sleepy During Day : Yes Observed Stopping Breathing During Sleep : No Have/Are Being Treated for Hypertension : Yes BMI Greater Than 35 kg/m2 : No Age over 50 Years Old : Yes Gender Male : No Heather Giron RN - 02/25/2021 10:41 EDT documented in this encounter Plan of Treatment Upcoming Encounters Date Type Department Care Team (Late st Contact Info) Description 12/26/2025 12:45 PM EDT Office Visit [address] [address] Enrique Barrera MD [address] [place] [address] 05/11/2026 1:30 PM EDT Appointment [address] [address] documented as of this encounter Visit Diagnoses Not on filedocumented in this encounter Care Teams Metal Furrer Relationship Specialty Start Date End Date Celia Oscar MD [address] [place] [address] PCP - General General Internal Medicine 11/24/2211/12 Celia Oscar MD [address] [place] [address] PCP - General General Internal Medicine 12/27/24 documented as of this encounter
--- OUTSIDE RECORDS SUMMARY | 2025-06-13 11:44 | XMS_ITS | Encounter Summary ---
Author Organization [employer] ([place], [place], [place], [place]) Address [address] [place] [address] Care Team Providers Care Commercial Loan Closer Name Role Phone Celia Oscar MD Primary Care Provider [phone] Celia Oscar MD Primary Care Provider [phone] Encounter Details Date Type Department Care Team (Late st Contact Info) Description 11/15/2018 Transcribed Document [facility] [place] [address] [place] [address] ProviderJose MD [address] [place] [address] Social History Tobacco Use Types Packs/Day Years Used Date Smoking Tobacco: Never Assessed Comments Unknown Sex and Gender Information Value Date Recorded Sex Assigned at Not on file Legal Sex Female 12:31 PM CDT Gender Identity Not on file Sexual Orientation Not on file documented as of this encounter Miscellaneous Notes * Cerner Conversion Note - Jose ProviderMD - 11/15/2018 6:24 PM INSPECTOR FIREARMS DATE OF SERVICE: 11/15/2018 SLEEP MEDICINE FOLLOWUP HISTORY: Ms. Cruz is seen in followup last here on November 03, 2017, with insomnia. She was previously treated with doxepin, but states she was unable to tolerate this because she felt drugged the next day. She has increased her zolpidem from 2.5 mg nightly to 5 mg nightly and with this says that her insomnia is adequately treated. She is tolerating it very well. She estimates getting about 5 hours of sleep per night. She reports no sleepiness and scores 2/24 in the Dudley Sleepiness Scale. On zolpidem, she has had no problems with sleepwalking. Other medical problems are stable including gastroesophageal reflux, allergic rhinitis, hypertension, and hyperlipidemia. REVIEW OF SYSTEMS: Occasional swelling, depression, compulsive behaviors at times. Since last time, medical history is significant for dental implants. SOCIAL HISTORY: She does not smoke or drink alcoholic beverages or caffeine. MEDICATIONS: 1. Multivitamin. 2. Hydrochlorothiazide. 3. Calcium. 4. Fluticasone. 5. Olopatadine eye drops. 6. Nexium. 7. Amlodipine. 8. Zolpidem. 9. Simvastatin. 10. Montelukast. 11. Lisinopril. PHYSICAL EXAMINATION: GENERAL: Ms. Cruz is a pleasant woman, in no distress. VITAL SIGNS: Weight is up 12 pounds to 214 pounds with a body mass index of 34. Blood pressure 120/80, pulse 86, respirations 16, oxygen saturation 96%. HEAD and NECK: Shows normal-appearing nasal mucosa without obstruction or bleeding. The oral exam shows normal oral mucosa with a Mallampati class I appearance. HEART: Regular without murmur, rub, or gallop. MENTAL STATUS: She was awake, alert, cooperative, well groomed. Memory appeared intact. ASSESSMENT: Chronic insomnia, doing well with zolpidem at 5 mg nightly and tolerating it well. RECOMMENDATIONS: Continue with zolpidem and follow up with us in one year and as needed. Joel Proctor M.D. Dict: 11/15/2018 18:24:51 Trans: 11/16/2018 04:13:55 CC1: Joel Proctor M.D. CC2: Celia Oscar M.D. documented in this encounter Plan of Treatment Upcoming Encounters Date Type Department Care Team (Late st Contact Info) Description 12/26/2025 12:45 PM EDT Office Visit [address] [address] Enrique Barrera MD [address] [place] [address] [place] [address] 05/11/2026 1:30 PM EDT Appointment [address] [address] documented as of this encounter Visit Diagnoses Not on filedocumented in this encounter Care Teams Commercial Loan Closer Relationship Specialty Start Date End Date Celia Oscar MD [address] [place] [address] PCP - General General Internal Medicine 11/24/2211/12 Celia Oscar MD [address] [place] [address] PCP - General General Internal Medicine 12/27/24 documented as of this encounter
--- OUTSIDE RECORDS SUMMARY | 2025-06-13 11:44 | XMS_ITS | Encounter Summary ---
Author Organization [employer] ([place], [place], [place], [place]) Address [address] [place] [address] Care Team Providers Care Refractory Mixer Name Role Phone Celia Oscar MD Primary Care Provider [phone] Encounter Details Date Type Department Care Team (Latest Contact Info) Description 05/09/2025 Travel Social History Tobacco Use Types Packs/Day Years Used Date Smoking Tobacco: Never Assessed Family and Community Support Answer Quique e Recorded Help with Day to Day Activities Not on file 10/29/2023 Feeling Lonely or Isolated Not on file 10/29 Educational Attainment Answer Date Danyel rded Speak language other than Wallisian at home Not on file 10/29/2023 Want [...] Description 12/26/2025 12:45 PM EDT Office Visit [address] [phone] Enrique Barrera MD [address] [place] [address] 05/11/2026 1:30 PM EDT Appointment [address] [place] [address] documented as of this encounter Visit Diagnoses Not on filedocumented in this encounter Care Teams Refractory Mixer Relationship Specialty Start Date End Date Celia Oscar MD [address] [place] [address] PCP - General General Internal Medicine 12/27/24 documented as of this encounter
--- OUTSIDE RECORDS SUMMARY | 2025-06-13 11:44 | XMS_ITS | Encounter Summary ---
Author Organization [facility] Address [address] [facility], [address] [place] [address] Care Team Providers Care Halfway House Counselor Name Role Phone Sonal Hamm MD Primary Care Provider [phone] Reason for Visit * Reason Comments Other Encounter Details Date Type Department Care Team (Late st Contact Info) Description 04/16/2015 [facility] [address] [place] [address] Sonal Hamm MD [address] [facility] [address] [place] [address] Other Social History Tobacco Use Types Packs/Day [...] on filedocumented in this encounter Care Teams Halfway House Counselor Relationship Specialty Start Date End Date Sonal Hamm MD PCP - General Family Medicine 11/23/12 documented as of this encounter
--- OUTSIDE RECORDS SUMMARY | 2025-06-13 11:44 | XMS_ITS | Encounter Summary ---
Author Organization [employer] ([place], [place], [place], [place]) Address [address] [place] [address] Care Team Providers Care Hiv Counselor Name Role Phone Celia Oscar MD Primary Care Provider Celia Oscar MD Primary Care Provider [phone] Encounter Details Date Type Department Care Team (Late st Contact Info) Description 03/08/2021 Transcribed Document [facility] Family Medicine [facility] [place] [address] ProviderJose MD [address] [place] [address] Social History Tobacco Use Types Packs/Day Years Used Date Smoking Tobacco: Never Assessed Comments Unknown Sex and Gender Information Value Date Recorded Sex Assigned at Not on file Legal Sex Female 12:31 PM CDT Gender Identity Not on file Sexual Orientation Not on file documented as of this encounter Miscellaneous Notes * Cerner Conversion Note - Jose Evans MD - 03/08/2021 9:20 AM CDT Patient: KARISSA HAN Age: 75 years Sex: Female : 1945 Associated Diagnoses: None Author: NE SHULTZ MD-ORT Operative Report DATE OF PROCEDURE: A 31/05/2021 PREOPERATIVE DIAGNOSIS(ES): Spinal stenosis, spondylolisthesis, disc degeneration, facet joint spondylosis, spondylolisthesis L3 on L4, 6 millimeters, severely far lateral recess stenosis L3-4, Spinal stenosis. . Disc degeneration. Facet joint spondylosis. Severe far lateral recess stenosis and foraminal stenosis L4-5,, spondylolisthesis, or mm, L4 on L5, Additional level POSTOPERATIVE DIAGNOSIS(ES): spinal stenosis, spondylolisthesis, L3-4, with 6 mm of slippage of L3 Severe lateral recess stenosis.severe facet joint spondylosis spinal stenosis. Spondylolisthesi L4-5, with 4 mm slippage of L4 on L5. severe lateral recess stenosissevere facet joint spondylosis PROCEDURE: [id number], posterior interbody technique, including laminectomy, with far lateral decompression of foramen L4-5. 70311-nekmrkcsfik, posterior interbody technique, including laminectomy, decompression additional level, with far lateral decompression of foramen L3-4 69642??2-modifier 51-interbody biomechanical device and structural bone graft, insertion into the inner disc space, or defect. 51584-zymbdpzt 51-posterior segmental instrumentation, 3-6 segments. L3-4 and L4-5. 06184-evvzcrudx-hbrfpzic incision, harvest right iliac crest. 18212-zlbkpkpmq, structural, for spinal surgery. SURGEON: Ne Shultz MD. ASSISTANT ELEMENTARY TEACHER: Ivelisse The duties of the assistant baseball coach are to assist in transferring the patient in the preoperative stretcher, onto the operating room table. Carefully positioning the patient, padding, During surgery, assisting with careful retraction, suctioning, allowing for safe visualization of the neurovascular structures. At the end of surgery, assistance with closure, and then transfer the patient off the operating room table onto the postoperative stretche FINDINGS: severe spinal stenosis L3-4 and L4-5 Severe lateral recess stenosis L3-4, L4-5 Spondylolisthesis, L3-4 L4-5 Facet joint spondylosis L3-4 L4- All severe RECOMMENDATION: AND SURGICAL INDICATORS Severe pain, lower back pain, right and left lower extremity. Symptom duration greater than 2 years. Aggressive treatment conservatively with physical therapy exercises, weight loss, anti-inflammatory medications neuropathic agents dural injection. No further improvement, remains severely disabled by symptoms. Imaging studies confirming severe spinal stenosis, at the L3-4 and at L4-5 levels, with associated spondylolisthesis and lateral recess stenosis up. patient does have some degeneration at L2-3, but I have not been able to elicit any L2-3 symptoms. His symptoms are largely L4 for L5. Patient has some S1 pain, get examination the patient, and on the imaging studies I cannot find any evidence of S1 radiculopathy or nerve root compression. For this reason I think the only areas any treatment at this time are at L3-4 and at L4-5. L5-S1 degenerative but does appear to be relatively stable with stable degeneration at L5-S1. The procedure patient risks have been reviewed, including those risk of infection, nerve damage, CSF leakage, pseudoarthrosis, nonunion, delayed union, transitional syndrome, not limited but also the above. Alternative treatments have been reviewed with her. I will address symptoms from L3-4 and at L4-5. I can't get any pathology on examination consistent that surgery would be indicated at L2-3 or at L5-S1 at this time. The clinical symptoms at this patient half are consistent with neurologic compression at the levels are applied on the MRI study. IMAGING STUDIES X-ray-L3-4, loss of disc space, spondylolisthesis 6 mm L3 on L4., L4-5 loss of disc space spondylolisthesis of L4 and L5, measuring 4 mm. Stable disc degeneration L5-S1. MRI lumbar [id number]-[id number] L3 on L4, measuring at least 6 mm. Severe lateral recess stenosis foraminal stenosis, disc degeneration, facet joint arthropathy. X5-1-rbcxjneuecypgayxu L4 and L5, measuring a minimum of 4 mm. Lateral recess stenosis foraminal stenosis facet joint arthropathy disc degeneration. Q8-D8-mvkpfq disc degeneration. CAT scan L3-4-severe disc degeneration facet joint arthropathy, spondylolisthesis, as above, facet arthropathy. Stenosis. L4-5-severe disc degeneration facet arthropathy, spinal listhesis as above, stenosis. L5-S1-disc degeneration but looking stable. No vacuum phenomena within the disc, the facet joints looks stable. Her clinical symptoms correlate with her imaging studies, being symptomatic at L3-4 and at L4-5 she does have any L5-S1 symptoms. ANESTHESIA: General. ESTIMATED BLOOD LOSS: Less than 40 mL COMPLICATIONS: None. Intraoperative EMG nerve conduction studies normal RISKS Risk will be minimized. These were reviewed with the patient, minimize sedation of risk with the following, not limited just these. Infection-sterile technique, superficial surgical technique, antibiotics. Antibiotic dressing antibiotic and wounds. Nerve damage-use of x-ray to identify correct level, biplane, EMG nerve conduction studies. 4 power magnification were needed. Repeat surgery-minimized that using minimal invasive surgical techniques, to minimize the chance of damaging structural support. Bleeding and transfusion-rarely occurs with this operation. Meticulous hemostasis. Nonunion-delayed union-patient will avoid any type of tobacco products, and nonsteroidals. CSF leakage-staying away as much as possible from the dural structures. Careful retraction. COMORBIDITIES- Hyperlipidemia Anxiety disorder Hypertension Chronic pain FLUOROSCOPY TIME-3.5 PHYSICIAN QUALITY REPORTING SYSTEM,/PAYMENT FOR PERFORMANCE SERVICES. Antibiotics administered within 1 hour of incision Antibiotics zdhses-rhbfa-evjmkjtvts cephalosporin, Ancef Antibiotics are discontinued within 24 hours of surgery Mechanical DVT prophylaxis Catheter not placed. Tobacco cessation. PROCEDURE IN DETAIL Patient brought into the operating room. General anesthesia. Catheter. DVT protocol. Teds and sequential compression devices legs. The patient was transferred onto the operating table onto the Jarvis frame. Very carefully, padding all pressure areas. With the patient appropriate position, 2 plane fluoroscopy was brought into the operating room. Preoperative MRI and imaging evaluation, creating blueprint for the patient. This blueprint, with 2 plane fluoroscopy was carefully transferred onto the patient skin. marketing on surgery site. Wash and prep. Sterile draping. Timeout., antibiotics Local filtration, L 3-4 -5, both on the right and on the left side, with long-acting anesthetic, and to the far lateral incision. 0.8 mL clonidine 0.5 mL epinephrine 30 mg ketorolac 50 mL ropivacaine 0.5% 47.7 mL lidocaine 1% with epinephrine Total volume 100 mL [id number]. Arthrodesis, posterior interbody technique, including discectomy, to prepare interspace, single interspace level, L4-5, and far lateral decompression [id number]-fojzxsxy 51-L 3-4 posterior arthrodesis, interbody technique, L3-4, additional interspace DLIF approach posterior lateral approach and far lateral decompression Starting incision was made on the left side, just over 10 cm, off the midline. centimeters off the midline at L4-5. Through this small incision, history of plane fluoroscopy, EMG nerve conduction studies, very carefully directing the guide pin, towards the pedicle of L5. Once encountering the pedicle of L5, gently walking the guidepin, and a cephalad direction, to come into the safe zone, and then walking this anteriorly, entering the guidepin into the disc. Careful monitoring with x-ray, EMG nerve conduction study. Carefully avoiding any irritation to the lumbosacral plexus. With careful positioning of the guidepin, and monitoring of the EMG nerve conduction studies. With this properly docked in this position incision was enlarged, the soft tissue dilators were used to dilate the soft tissues, and she would create a working channel with the place a tubular retractor through the soft tissues, onto the surface of the disc, and advancing into the disc. This allowed for very careful visualization, and for careful protection of the exiting L4 nerve root and the traversing L5 nerve root. An aggressive discectomy was then performed by drilling across the disc with 6 mm drill bit followed with the articulating curettes and straight curettes, and aggressively remove the disc material scraping the endplates. Doing a surface corpectomy, of the endplate of L4 and L5. This was followed with a wire brushes, cleaning out the endplates. Multiple passes were made to make certain that there is no more disc material on the endplates. And the cartilaginous endplate had been removed. The disc space and washed out with pulse lavage. Suctioning of the space for hemostasis.. Being very carefully not to disrupt the stability of the endplate. Making special effort, to keep the annulus intact. This exact same approach, that was used at the L3-4 level. Additional level. Gently bringing the guidewire, through the far lateral approach, approximately 10 cm off the midline, directly was towards the disc, with careful neural monitoring, bringing the guidewire onto the disc at L3-4. Careful neural monitoring, EMG and nerve conduction studies. X-ray confirmation. The heavy Steinmann pin was docked onto the disks and locked into the disc. This was followed with the soft tissue dilators, dilating, coming down onto the disc. Then advancing the tubular retractor was into the disc of L3-4. The tubular retractor very carefully, protecting the neural structures, the traversing L4 nerve, and the exiting L3 nerve root. Aggressive discectomy performed, with the pituitaries, articulating curettes, and the wire brushes. Cleaning the endplates, to make certain that was only bony endplate. Then pulse lavaging the disc space. Surface corpectomies off the endplate, of L3-4 space, and L4-5 space.. Autograft harvest iliac crest right side-cortical cancellus, cancellus, structural bone graft , Separate incision was made over the posterior superior right iliac crest. Through this small incision, carefully dissecting onto the posterior suprailiac spine. Osteotomizing the spine. A cone of bone was removed, which measured 5 mm, proximally, 1.5 cm distally, by 1.2 cm in length. This bone was taken and mixed with the allograft prep and graft purchasing buyer prep on the back table. [id number]-[id number], structural, The allograft mixture, was taken from the container, and reconstituted. Reconstitution to take approximately 20 minutes. This reconstitution of the allograft mixture was combined with as a graft purchasing buyer, with the autograft. The combination is to bone products, there were used for compact bone grafting within the disc space, to allow for structural bone grafting within the 2 disc spaces. L3-4, and at L4-5. Interbody fusion-structural bone graft 91331??2-modifier 51 Biomechanical, structural bone graft, placement, interbody disc space, L3-4, L4-5. Interbody fusion L4-5 was performed by placement of the autograft allograft mixture, into the disc space. With the tubular retractor, carefully protecting the neural elements. Compact bone grafting into the disc space Allowing for good contact, between the auto/allograft mixture against the endplates L4-5. Compact bone grafting into the disc space, to give structural support into the L4-5 disc space, containing the bone graft in the mesh device to prevent bone graft from migrating into the spinal canal. The fusion is based on placement of structural bone graft into the disc space, so that fusion takes across the disc space through the bone. Interbody fusion, L3-4, additional level, performed by placement of structural autograft allograft mixture into the disc space, through the tubular retractor, protecting the neural elements. Compact structural bone grafting into the disc space, allowing for full contact between the endplate of L3 and an L4, to stimulate fusion across the disc space. Bone graft was prevented from migrating into the canal, with the mesh device. Neural foraminal decompression and spinal canal decompression. (Included into 07814) With placement of the interbody mesh device and the structural graft, and reduction of the spondylolisthesis, this allowed for decompression of the exiting nerve root, and the traversing nerve roots. This was carefully confirmed, with fluoroscopy. An direct visualization.Exiting and traversing nerve root. Confirming EMG nerve conduction studies, normal. Confirming, that the neural foraminal decompressed at least 50% compared to the preoperative evaluation. [id number] nonsegmental instrumentation, L3-4, L4-5. Small incision was made, approximately 2 inches,ight and left side overlying the L3-4-5evel, approximately 6 cm off the midline. Very carefully dissected the skin and subcutaneous tissue, down onto the juncture of the transverse process with the pedicle, L3,L4, and L5, right and left side. Jamshidi needle and placed down the longitudinal axis, L3, L4 and L5 right and left side. Follow with the guidewire, 2 plane fluoroscopy. Identification of the juncture of the transverse process with the pedicle, 2 plane fluoroscopy Tapping, each pedicle, with the tap, and measured for screw length. Pedicle screws and placed into L3, L4 and L5. L5 pedicle screw kept proud compared to L4. Neuroforaminal visualization. L4 screw kept proud compared to L3 Then carefully measured and the interpedicular distance of the screws, between L3 and L5. Sixto lenghth was measured, and corrective mathematics used to select sixto length. The sixto then was very carefully placed toL3, then into L4, directed into L5. , with direct visualization, an fluoroscopy. The sixto was set screw locked into position, at L5, leaving it proud at L4. Then slowly tightening the screw, L5, and L4 right and left side to help reduced the spondylolisthesis at L4-5 .Furthe canal and foramen decompression. The L4 set screw, was loosened off, and then completion of the interbody compact bone grafting, and further decompression of the neural foramen, and the spinal canal. The L3-4 level, was then further decompressed, and then gently tightening down the L3 screw, to reduce the spondylolisthesis, allow for further spinal decompression. Careful posterior element decortication, L3-4, L4-5, placement of bone graft. Allograft, autograft Wound closure The wound was closed in the standard fashion. This was done by first irrigation of the wound with antibiotic solution. Deep fascia repaired with #1 Vicryl subcutaneous tissue with 2 Vicryl. The skin was closed, with estuardo, followed by antibiotic ointment, and antibiotic dressing.Wound sealed with dermabond. Sponge count was correct. Postoperative x-ray showing placement of the interbody spacer, rods and screws, decompression. Transferred to recovery room The patient was very gently transferred on postop recovery bed, and to recovery room. Sincerely, Dr. Ne Shultz, March 08, 2021 Ne Shultz M.D. documented in this encounter Plan of Treatment Upcoming Encounters Date Type Department Care Team (Late st Contact Info) Description 12/26/2025 12:45 PM EDT Office Visit [address] [phone] Enrique Barrera MD [address] [place] [address] 05/11/2026 1:30 PM EDT Appointment [address] [place] [phone] documented as of this encounter Visit Diagnoses Not on filedocumented in this encounter Care Teams Hiv Counselor Relationship Specialty Start Date End Date Celia Oscar MD [address] [facility] [address] [place] [address] PCP - General General Internal Medicine 11/24/2211/12 Celia Oscar MD [address] [address] [place] [address] PCP - General General Internal Medicine 12/27/24 documented as of this encounter
--- OUTSIDE RECORDS SUMMARY | 2025-06-13 11:44 | XMS_ITS | Encounter Summary ---
Author Organization [employer] ([place], [place], [place], [place]) Address [address] [place] [address] Care Team Providers Care Head Of Integrated Media Name Role Phone Celia Oscar MD Primary Care Provider [phone] Celia Oscar MD Primary Care Provider [phone] Encounter Details Date Type Department Care Team (Late st Contact Info) Description 03/08/2021 Transcribed Document [facility] [place] [address] ProviderJose MD [address] [place] [address] Social History Tobacco Use Types Packs/Day Years Used Date Smoking Tobacco: Never Assessed Comments Unknown Sex and Gender Information Value Date Recorded Sex Assigned at Not on file Legal Sex Female 12:31 PM CDT Gender Identity Not on file Sexual Orientation Not on file documented as of this encounter Miscellaneous Notes * Cerner Conversion Note - Jose ProviderMD - 03/08/2021 11:54 AM CDT Initial Discharge Planning Entered On: 03/08/2021 11:55 EDT Performed On: 03/08/2021 11:54 EDT by KENA MOHAN RN Initial Assessment I Previously Documented Living Environment : No qualifying data available. Living Situation : Home Patient Lives With : Spouse Is the Patient a Caregiver at Home? : No Emergency Contact #1 : Dima Teague Emergency Contact #1 Emergency Contact #1 Relationship : spouse Emergency Contact #2 : . Emergency Contact #2 Phone Number : . Emergency Contact #2 Relationship : . Enter Doctors Name : Dayne Yang Does Patient have PCP Listed? : Yes Legal Guardian : No KENA MOHAN RN - 03/08/2021 11:54 EDT Initial Assessment II Sensory and Motor Deficits : None Current Home Treatments and Equipment : Walker Services and Community Resources : Other: na Does the Patient have a Floor to SNF Benefit? : No KENA MOHAN RN - 03/08/2021 11:54 EDT Discharge Needs I Anticipated Discharge Date : 03/08/2021 EDT Anticipated Discharge To, CM : Home independently Current Home Treatment/Equipment : Current Home Treatment/Equipment No qualifying data available. Post Acute/Home Treatments : None Documentation Status Complete : Yes KENA MOHAN RN - 03/08/2021 11:54 EDT Discharge Needs II Professional Skilled Services : Professional Skilled Services No qualifying data available. Services and Community Resources : Other: na Needs Assistance with Transportation : No Discharge Options Discussed with Patient : Discharge transportation, DME KENA MOHAN RN - 03/08/2021 11:54 EDT Narrative Note Narrative Note : 75 y/o female s/p lumbar fusion L3-4 L4-[address] Saul. met with patient at bedside to discuss discharge needs. RRS: LOW STATUS: patient lives with her and is iADLS. PLAN: home with no needs. DME: Patient has a walker at home. CM: No further CM needs identified. TRANS: family to transport. KENA MOHAN RN - 03/08/2021 11:56 EDT documented in this encounter Plan of Treatment Upcoming Encounters Date Type Department Care Team (Late st Contact Info) Description 12/26/2025 12:45 PM EDT Office Visit [address] [phone] Enrique Barrera MD [address] [place] [address] 05/11/2026 1:30 PM EDT Appointment [address] [place] [address] documented as of this encounter Visit Diagnoses Not on filedocumented in this encounter Care Teams Head Of Integrated Media Relationship Specialty Start Date End Date Celia Oscar MD [address] [place] [address] PCP - General General Internal Medicine 11/24/2211/12 Celia Oscar MD [address] [place] [address] PCP - General General Internal Medicine 12/27/24 documented as of this encounter
--- OUTSIDE RECORDS SUMMARY | 2025-06-13 11:44 | XMS_ITS | Encounter Summary ---
Author Organization [employer] ([place], [place], [place], [place]) Address [address] [place] [address] Care Team Providers Care Stone Cleaner Name Role Phone Celia Oscar MD Primary Care Provider [phone] Celia Oscar MD Primary Care Provider [phone] Encounter Details Date Type Department Care Team (Late st Contact Info) Description 03/08/2021 Transcribed Document [facility] [place] [address] ProviderJose MD [address] [place] [address] Social History Tobacco Use Types Packs/Day Years Used Date Smoking Tobacco: Never Assessed Comments Unknown Sex and Gender Information Value Date Recorded Sex Assigned at Not on file Legal Sex Female 12:31 PM CDT Gender Identity Not on file Sexual Orientation Not on file documented as of this encounter Miscellaneous Notes * Cerner Conversion Note - Jose ProviderMD - 03/08/2021 7:27 AM CDT Event Note Entered On: 03/08/2021 7:27 EDT Performed On: 03/08/2021 7:27 EDT by LUTHER SEVILLA RN Event Note Event Date/Time : 03/08/2021 7:27 EDT Description of Event : Dr. Saul ok to proceed with surgery after reviewing urinalysis LUTHER SEVILLA RN - 03/08/2021 7:27 EDT documented in this encounter Plan of Treatment Upcoming Encounters Date Type Department Care Team (Late st Contact Info) Description 12/26/2025 12:45 PM EDT Office Visit [address] [phone] Enrique Barrera MD [address] [place] [address] 05/11/2026 1:30 PM EDT Appointment [address] [place] [phone] documented as of this encounter Visit Diagnoses Not on filedocumented in this encounter Care Teams Stone Cleaner Relationship Specialty Start Date End Date Celia Oscar MD [address] [place] [address] PCP - General General Internal Medicine 11/24/2211/12 Celia Oscar MD [address] [place] [address] PCP - General General Internal Medicine 12/27/24 documented as of this encounter
--- OUTSIDE RECORDS SUMMARY | 2025-06-13 11:44 | XMS_ITS | Encounter Summary ---
Author Organization [employer] ([place], [place], [place], [place]) Address [address] [place] [address] Care Team Providers Care Aircraft Hydraulic Equipment Mechanic Name Role Phone Celia Oscar MD Primary Care Provider Celia Oscar MD Primary Care Provider [phone] Encounter Details Date Type Department Care Team (Late st Contact Info) Description 03/08/2021 Transcribed Document [facility] [place] [facility] [address] ProviderJose MD [address] [place] [address] Social History Tobacco Use Types Packs/Day Years Used Date Smoking Tobacco: Never Assessed Comments Unknown Sex and Gender Information Value Date Recorded Sex Assigned at Not on file Legal Sex Female 12:31 PM CDT Gender Identity Not on file Sexual Orientation Not on file documented as of this encounter Miscellaneous Notes * Cerner Conversion Note - Jose ProviderMD - 03/08/2021 11:58 AM CDT On Going Discharge Planning Entered On: 03/08/2021 11:58 EDT Performed On: 03/08/2021 11:58 EDT by KENA MOHAN, ERMA Care Management Progress Note Discharge Arrangements : Patient Post-Acute Information Patient Name: CYDNEY HAN Gender: Female : [birth year] Age: 75 Years No Post-Acute Placement(s) Listed No Post-Acute Service(s) Listed No [place] Referral(s) Listed Discharge Options Discussed with Patient : Discharge transportation, DME Barriers to Discharge Identified : None identified Barriers to Discharge Unresolved : All resolved Designation of Choice Signed : No Patient Offered Choice/Affiliations Explained : No List/Info Provided Pt/Fam/Support Person : Other: na Were Referrals Sent to Post Acute Providers : No Does the Patient have a Floor to SNF Benefit? : No Is the Patient Meeting Medical Necessity : Yes Physician Agreeable to Move Forward with D/C Plan? : Yes Did you Attend Multidisciplinary Rounds? : No KENA MOHAN RN - 03/08/2021 11:58 EDT Narrative Progress Note Narrative Progress Note : 75 y/o female s/p lumbar fusion L3-4 L4-[address] Saul. met with patient at bedside to discuss discharge needs. RRS: LOW STATUS: patient lives with her and is iADLS. PLAN: home with no needs. DME: Patient has a walker at home. CM: No further CM needs identified. TRANS: family to transport. KENA MOHAN RN - 03/08/2021 11:58 EDT Electronically signed by Onel [facility] Conversion Ironworker Foreman Cerner at 01/29/2023 7:17 PM CDT documented in this encounter Plan of Treatment Upcoming Encounters Date Type Department Care Team (Late st Contact Info) Description 12/26/2025 12:45 PM EDT Office Visit [address] [address] Enrique Barrera MD [address] [place] [address] 05/11/2026 1:30 PM EDT Appointment [address] [place] [address] documented as of this encounter Visit Diagnoses Not on filedocumented in this encounter Care Teams Aircraft Hydraulic Equipment Mechanic Relationship Specialty Start Date End Date Celia Oscar MD [address] [place] [address] PCP - General General Internal Medicine 11/24/2211/12 Celia Oscar MD [address] [place] [address] PCP - General General Internal Medicine 12/27/24 documented as of this encounter
--- OUTSIDE RECORDS SUMMARY | 2025-06-13 11:44 | XMS_ITS | Encounter Summary ---
Author Organization [employer] ([place], [place], [place], [place]) Address [address] [place] [address] Care Team Providers Care Ecosystem Ecology Professor Name Role Phone Celia Oscar MD Primary Care Provider [phone] Celia Oscar MD Primary Care Provider [phone] Encounter Details Date Type Department Care Team (Late st Contact Info) Description 03/08/2021 Transcribed Document [facility] [place] Medicine [facility] [place] [address] ProviderJose MD [address] [place] [address] Social History Tobacco Use Types Packs/Day [...] 03/08/2021 8:11 AM CDT [facility] Main OR PACU Summary Primary Physician: NE SHULTZ MD-ORT Finalized Date/Time: 03/08/21 11:03:05 Pt. Name: CYDNEY HAN /Sex: 1945 Female Med Rec #: [id number] Physician: NE SHULTZ MD-ORT Financial #: [id number] Pt. Type: O Room/Bed: [facility]/ Admit/Disch: 03/08/21 04:28:00 - Institution: [facility] OR PACU Case Times Entry 1 In PACU I 03/08/21 09:47:00 Ready for PACU 03/08/21 10:57:00 Discharge Discharge from PACU 03/08/21 10:57:00 I Last Modified By: Nimco Lee Rn Patient Care Bedside 03/08/21 11:02:57 [facility] Main OR PACU Case Times Audit 03/08/21 11:02:57 Aluminum Boat Inspector: PATRICIA Modifier: PATRICIA <+> 1 Ready for PACU Discharge <+> 1 Discharge from PACU I Finalized By: Nimco Lee Rn Patient Care Bedside Document Signatures Signed By: Nimco Lee Rn Patient Care Bedside 03/08/21 11:03 Electronically signed by Onel [facility] Conversion Inspecting And Testing Lead Hand Cerner at 01/29/2023 7:12 PM CDT documented in this encounter Plan of Treatment Upcoming Encounters Date Type Department Care Team (Late st Contact Info) Description 12/26/2025 12:45 PM EDT Office Visit [address] [address] Enrique Barrera MD [address] [place] [address] 05/11/2026 1:30 PM EDT Appointment [address] [place] [phone] documented as of this encounter Visit Diagnoses Not on filedocumented in this encounter Care Teams Ecosystem Ecology Professor Relationship Specialty Start Date End Date Celia Oscar MD [address] [place] [address] PCP - General General Internal Medicine 11/24/2211/12 Celia Oscar MD [address] [place] [address] PCP - General General Internal Medicine 12/27/24 documented as of this encounter
--- OUTSIDE RECORDS SUMMARY | 2025-06-13 11:44 | XMS_ITS | Encounter Summary ---
Author Organization [employer] ([place], [place], [place], [place]) Address [address] [place] [address] Care Team Providers Care Engineering Design Manager Name Role Phone Jayde Oscar MD Primary Care Provider [phone] Jayde Oscar MD Primary Care Provider [phone] Encounter Details Date Type Department Care Team (Late st Contact Info) Description 02/25/2021 Transcribed Document [facility] [place] Medicine [address] [place] [address] ProviderJose MD [address] [place] [address] Social History Tobacco Use Types Packs/Day Years Used Date Smoking Tobacco: Never Assessed Comments Unknown Sex and Gender Information Value Date Recorded Sex Assigned at Not on file Legal Sex Female 12:31 PM CDT Gender Identity Not on file Sexual Orientation Not on file documented as of this encounter Miscellaneous Notes * Cerner Conversion Note - Jose ProviderMD - 02/25/2021 10:38 AM CDT Patient: CYDNEY HAN Age: 75 Years Sex: Female : 1945 Chief Complaint Low Back Pain Primary Care Provider JAYDE OSCAR (REF), -INT History of Present Illness This patient is a pleasant 75 yo WF who presents with low back pain. The pain has been going on for 2 years but has gotten progressively worse. She describes it as a sharp pain. It is now to the point that it is affecting her ADLs. She has tried NSAIDs and injections without relief of her pain. She has not fallen. She has not used an assistive device. She was seen at Dr Saul's office and evaluated and she was offered a L3/4, L4/5 and Possible L5/S1 Posterior Fusion and agreed to the procedure. Pt denies a h/o DVT/PE. No trouble with anesthesia in the past. No respiratory conditions including COPD/JULIANA/asthma. Review of Systems Constitutional: Neg for fevers or chills. Eyes: Neg for blurry vision or change in vision. ENT: Neg for sore throat, ear pain, or dizziness. Cardiac: Neg for chest pain or dyspnea on exertion. Respiratory: Neg for shortness of breath. Gastrointestinal: Neg for nausea, vomiting, diarrhea, or constipation. Musculoskeletal: Pos for low back pain. Neurologic: Neg for headaches or seizures. Psychiatric: Neg for anxiety and depression. Integumentary: Neg for rash. Vital Signs T: 37.4 ??C HR: 86(Peripheral) RR: 16 BP: 180/84 SpO2: 95% HT: 166.37 cm WT: 94.09 kg BMI: 34 Oxygen Settings (Last) Oxygen Therapy Mode: Room air (02/25/21 10:41:00) Physical Exam Constitutional: This is a pleasant 75 yo WF in no acute distress. HEENT: Normocephalic, atraumatic. PEERLA. Extraocular muscles intact. Conjunctiva pink without exudate. Oropharynx pink and moist. Neck supple. No JVD. Cardiac: SI, S2. RRR. No M/R/G. Respiratory: Lungs CTA bilaterally. No wheezes, rales, or rhonchi. Abdomen: Soft, nontender, nondistended. Active bowel sounds. No visible masses. Musculoskeletal: Bilateral LE without clubbing, cyanosis or edema. Integumentary: Skin is pink, warm and dry. No rashes. Neurologic: CN II-XII grossly intact. Psychiatric: Judgment and affect appropriate. Assessment/Plan 1. Preoperative Evaluation- Pt underwent preoperative laboratory workup and diagnostic studies. 2. Low Back Pain- Proceed with surgery as scheduled with Dr Saul on 03/08/2021. 3. Hypertension- Continue Lisinopril, Amlodipine and HCTZ. 4. GERD- Continue Nexium. 5. Hyperlipidemia- Continue Simvastatin. 6. Seasonal Allergies- Continue Singulair. 7. Asymptomatic UTI- Dr Saul called in Cefdinir 300mg po BID x 7 days. Problem List/Past Medical History Ongoing Anxiety Arthritis GERD (gastroesophageal reflux disease) Hyperlipidemia Hypertension Insomnia Procedure/Surgical History c section, cholecystectomy, Hemorrhoidectomy, wrist fracture. Home Medications (15) Active Ambien 5 mg oral tablet 5 mg = 1 Tab, Oral, At Bedtime amLODIPine 5 mg, Oral, Daily areds2 1 Tab, Oral, Daily biotin/keratin 24792zbn/100mg, Oral, Daily Flonase 1 [place], Nostrils Both, Daily hydroCHLOROthiazide 25 mg, Oral, Daily immune plus 1 Tab, Oral, Daily lisinopril 30 mg, Oral, Daily montelukast 10 mg, Oral, Daily Multi Vitamin+ 1 Tab, Oral, Daily NexIUM 40 mg, Oral, Daily omega3-6-9 1600mcq, Oral, Daily simvastatin 20 mg, Oral, At Bedtime tumeric 500 mg, Oral, Daily vitamin b 12 5000mcq, Oral, Daily Allergies Bee Stings (Anaphylactic reaction) Darvocet A500 (n/v) EPINEPHrine (increased heart rate) Nitrofurantoin Monohydrate/Macrocrystals (unknown) codeine (n/v) levofloxacin (n/v) sulfa drugs (rash) Social History Alcohol Alcohol Use History No. Use in Last 12 Months: No. Alcohol Use History No. Use in Last 12 Months: No. Nutrition/Health Regular Substance Abuse Drug Use Hx: No. Use in Last 12 Months: No. Tobacco Smoking Status Never smoker. Family History Pt mother at 59 from CAD. Pt father at 76 from Throat Cancer. Diagnostic Results EKG- NSR, 81 CXR- Left basilar atelectasis or scarring, otherwise NAD. Lab Results Test Name Test Result Date/Time Sodium Level 141 mmol/L 02/25/2021 10:35 EDT Potassium Level 4.1 mmol/L 02/25/2021 10:35 EDT Chloride Level 103 mmol/L 02/25/2021 10:35 EDT Carbon Dioxide Level 31 mmol/L 02/25/2021 10:35 EDT Anion Gap 11 02/25/2021 10:35 EDT Glucose Level 108 mg/dL (High) 02/25/2021 10:35 EDT Blood Urea Nitrogen 14 mg/dL 02/25/2021 10:35 EDT Creatinine Level 0.68 mg/dL 02/25/2021 10:35 EDT eGFR >60 mL/min/1.73m2 02/25/2021 10:35 EDT eGFR NonAfrican >60 mL/min/1.73m2 02/25/2021 10:35 EDT Bun/Creatinine 20.6 (High) 02/25/2021 10:35 EDT Calcium Level 10.0 mg/dL 02/25/2021 10:35 EDT Protein Total 8.3 Gram/dL (High) 02/25/2021 10:35 EDT Albumin Level 3.7 Gram/dL 02/25/2021 10:35 EDT Globulin 4.6 Gram/dL (High) 02/25/2021 10:35 EDT A/G Ratio 0.8 (Low) 02/25/2021 10:35 EDT Bilirubin Total 0.5 mg/dL 02/25/2021 10:35 EDT Alk Phos 102 Units/Liter 02/25/2021 10:35 EDT AST 28 Units/Liter 02/25/2021 10:35 EDT ALT 28 Units/Liter 02/25/2021 10:35 EDT WBC 7.6 K/uL 02/25/2021 10:35 EDT RBC 4.72 Million/uL 02/25/2021 10:35 EDT Hgb 14.1 Gram/dL 02/25/2021 10:35 EDT Hct 44.6 % 02/25/2021 10:35 EDT MCV 94.5 fL 02/25/2021 10:35 EDT MCH 29.9 pg 02/25/2021 10:35 EDT MCHC 31.6 Gram/dL (Low) 02/25/2021 10:35 EDT Platelet Count 229 K/uL 02/25/2021 10:35 EDT MPV 11.4 fL 02/25/2021 10:35 EDT RDW 13.8 % 02/25/2021 10:35 EDT Neut % 59.0 % 02/25/2021 10:35 EDT Neut # 4.50 K/uL 02/25/2021 10:35 EDT Lymph % 26.6 % 02/25/2021 10:35 EDT Lymph # 2.03 K/uL 02/25/2021 10:35 EDT [place] % 10.4 % 02/25/2021 10:35 EDT [place] # 0.79 K/uL 02/25/2021 10:35 EDT Eos % 3.0 % 02/25/2021 10:35 EDT Eos # 0.23 K/uL 02/25/2021 10:35 EDT Baso % 0.7 % 02/25/2021 10:35 EDT Baso # 0.05 K/uL 02/25/2021 10:35 EDT Slide Review No 02/25/2021 10:35 EDT IG# 0 x10(3)/uL 02/25/2021 10:35 EDT IG% 0 % 02/25/2021 10:35 EDT PT 10.8 Second(s) 02/25/2021 10:35 EDT INR 1.0 02/25/2021 10:35 EDT Urine Type. U CleanCatch 02/25/2021 10:35 EDT Urine Color DK YELLOW 02/25/2021 10:35 EDT Urine Appearance CLOUDY2 (Abnormal) 02/25/2021 10:35 EDT Urine Specific [place] 1.020 02/25/2021 10:35 EDT Urine pH Dipstick 6.5 02/25/2021 10:35 EDT Urine Leukocyte Esterase LARGE2 (Abnormal) 02/25/2021 10:35 EDT Urine Nitrite NEGATIVE2 02/25/2021 10:35 EDT Urine Protein Dipstick NEGATIVE2 02/25/2021 10:35 EDT Urine Glucose Dipstick NEGATIVE2 02/25/2021 10:35 EDT Urine Ketones Dipstick NEGATIVE2 02/25/2021 10:35 EDT Urine Urobilinogen Dipstick 0.2 02/25/2021 10:35 EDT Urine Bilirubin Dipstick NEGATIVE2 02/25/2021 10:35 EDT Urine Blood Dipstick NEGATIVE2 02/25/2021 10:35 EDT Ur RBC 0-2 (Abnormal) 02/25/2021 10:35 EDT Ur WBC To Numerous to Count (Abnormal) 02/25/2021 10:35 EDT Ur WBC Clumps Present (Abnormal) 02/25/2021 10:35 EDT Ur Bacteria 3+ (Abnormal) 02/25/2021 10:35 EDT Ur Epithelial Cells 2-5 (Abnormal) 02/25/2021 10:35 EDT Urine Culture if Indicated Culture Ordered 02/25/2021 10:35 EDT Electronically signed by Onel, [facility] Conversion College Professor Cerner at 01/29/2023 7:01 PM CDT documented in this encounter Plan of Treatment Upcoming Encounters Date Type Department Care Team (Late st Contact Info) Description 12/26/2025 12:45 PM EDT Office Visit [address] [phone] Enrique Barrera MD [address] [place] [address] 05/11/2026 1:30 PM EDT Appointment [address] [place] [phone] documented as of this encounter Visit Diagnoses Not on filedocumented in this encounter Care Teams Engineering Design Manager Relationship Specialty Start Date End Date Jayde Oscar MD [address] [facility] [address] [place] [address] PCP - General General Internal Medicine 11/24/2211/12 Jayde Oscar MD [address] [facility] [address] [place] [address] PCP - General General Internal Medicine 12/27/24 documented as of this encounter
--- OUTSIDE RECORDS SUMMARY | 2025-06-13 11:44 | XMS_ITS | Encounter Summary ---
Author Organization [employer] ([place], [place], [place], [place]) Address [address] [place] [address] Care Team Providers Care Tire Service Supervisor Name Role Phone Celia Oscar MD Primary Care Provider [phone] Celia Oscar MD Primary Care Provider Encounter Details Date Type Department Care Team (Late st Contact Info) Description 03/08/2021 Transcribed Document [facility] [place] Family [place] [facility] [place] [place] [address] ProviderJose MD [address] [place] [address] Social History Tobacco Use Types Packs/Day Years Used Date Smoking Tobacco: Never Assessed Comments Unknown Sex and Gender Information Value Date Recorded Sex Assigned at Not on file Legal Sex Female 12:31 PM CDT Gender Identity Not on file Sexual Orientation Not on file documented as of this encounter Miscellaneous Notes * Cerner Conversion Note - Jose ProviderMD - 03/08/2021 11:49 AM CDT Event Note Entered On: 03/08/2021 11:50 EDT Performed On: 03/08/2021 11:49 EDT by Martina Siegel RN Event Note Event Date/Time : 03/08/2021 11:49 EDT Description of Event : pt/ot determined pt does not need walker Martina Siegel RN - 03/08/2021 11:49 EDT documented in this encounter Plan of Treatment Upcoming Encounters Date Type Department Care Team (Late st Contact Info) Description 12/26/2025 12:45 PM EDT Office Visit [address] [address] Enrique Barrera MD [address] [place] [address] 05/11/2026 1:30 PM EDT Appointment [address] [place] [address] documented as of this encounter Visit Diagnoses Not on filedocumented in this encounter Care Teams Tire Service Supervisor Relationship Specialty Start Date End Date Celia Oscar MD [address] [place] [address] PCP - General General Internal Medicine 11/24/2211/12 Celia Oscar MD [address] [place] [address] PCP - General General Internal Medicine 12/27/24 documented as of this encounter
--- OUTSIDE RECORDS SUMMARY | 2025-06-13 11:44 | XMS_ITS | Encounter Summary ---
Author Organization [facility] Address [address] [facility], [address] [place] [address] Care Team Providers Care Operator And Truck Driver Name Role Phone Sonal Hamm MD Primary Care Provider [phone] Reason for Visit * Reason Comments Other Encounter Details Date Type Department Care Team (Late st Contact Info) Description [facility]/13/2015 [facility] [address] [place] [address] Sonal Hamm MD [address] [facility] [address] [place] [address] Other Social History Tobacco Use Types Packs/Day [...] on filedocumented in this encounter Care Teams Operator And Truck Driver Relationship Specialty Start Date End Date Sonal Hamm MD PCP - General Family Medicine 11/23/12 documented as of this encounter
--- OUTSIDE RECORDS SUMMARY | 2025-06-13 11:44 | XMS_ITS | Encounter Summary ---
Author Organization [employer] ([place], [place], [place], [place]) Address [address] [place] [address] Care Team Providers Care Lens Assistant Name Role Phone Celia Oscar MD Primary Care Provider [phone] Celia Oscar MD Primary Care Provider [phone] Encounter Details Date Type Department Care Team (Late st Contact Info) Description 03/08/2021 Transcribed Document [facility] [place] [address] [place] [address] ProviderJose MD [address] [place] [address] Social History Tobacco Use Types Packs/Day Years Used Date Smoking Tobacco: Never Assessed Comments Unknown Sex and Gender Information Value Date Recorded Sex Assigned at Not on file Legal Sex Female 12:31 PM CDT Gender Identity Not on file Sexual Orientation Not on file documented as of this encounter Miscellaneous Notes * Cerner Conversion Note - Jose [place] MD - 03/08/2021 11:30 AM CDT Patient Education Materials Follows: Spinal Fusion, Adult, Care After This sheet gives you information about how to care for yourself after your procedure. Your health care provider may also give you more specific instructions. If you have problems or questions, contact your health care provider. What can I expect after the procedure? After the procedure, it is common to have: ??? Back pain and stiffness. ??? Pain in the incision area. Follow these instructions at home: Medicines ??? Take llzy-dyw-oytggwp and prescription medicines only as told by your health care provider. These include any pain medicines or blood thinning medicines (anticoagulants). ??? If you were prescribed an antibiotic medicine, take it as told by your health care provider. Do not stop taking the antibiotic even if you start to feel better. ??? Do not drive for 24 hours if you received a medicine to help you relax (sedative). ??? Do not drive or use heavy machinery while taking prescription pain medicine. If you have a brace: ??? Wear the brace as told by your health care provider. Remove it only as told by your health care provider. ??? Keep the brace clean. Managing pain, stiffness, and swelling ??? If directed, put ice on the injured area: ? If you have a removable brace, remove it as told by your health care provider. ? Put ice in a plastic bag. ? Place a towel between your skin and the bag. ? Leave the ice on for 20 minutes, 2-3 times a day. Incision care ??? Follow instructions from your health care provider about how to take care of your incision. Make sure you: ? Wash your hands with soap and water before you change your bandage (dressing). If soap and water are not available, use hand flaker tender. ? Change your dressing as told by your health care provider. ? Leave stitches (sutures), skin glue, or adhesive strips in place. These skin closures may need to be in place for 2 weeks or longer. If adhesive strip edges start to loosen and curl up, you may trim the loose edges. Do not remove adhesive strips completely unless your health care provider tells you to do that. ??? Keep your incision clean and dry. Do not take baths, swim, or use a hot tub until your health care provider approves. ??? Check your incision area every day for signs of infection. Check for: ? More redness, swelling, or pain. ? Fluid or blood. ? Warmth. ? Pus or a bad smell. Physical activity ??? Rest and protect your back as much as possible. ??? Follow instructions from your health care provider about how to move and use good posture to help your spine heal. ??? Do not lift anything that is heavier than 8 lb (3.6 kg) or as told by your health care provider. ??? Do not twist or bend at the waist until your health care provider approves. ??? Avoid: ? Pushing and pulling motions. ? Lifting anything over your head. ? Sitting or lying down in the same position for long periods of time. ??? Do not exercise until your health care provider approves. Once your health care provider has approved exercise, ask him or her what kinds of exercises you can do to make your back stronger (physical therapy). General instructions ??? Wear compression stockings and walk at least every few hours as told by your health care provider. Doing this will help to prevent blood clots and reduce swelling in your legs. ??? Do not use any products that contain nicotine or tobacco, such as cigarettes and e-cigarettes. These can delay bone healing. If you need help quitting, ask your health care provider. ??? To prevent or treat constipation while you are taking prescription pain medicine, your health care provider may recommend that you: ? Drink enough fluid to keep your urine clear or pale yellow. ? Take zgiq-ydf-yvtwsmw or prescription medicines. ? Eat foods that are high in fiber, such as fresh fruits and vegetables, whole grains, and beans. ? Limit foods that are high in fat and processed sugars, such as fried and sweet foods. ??? Keep all follow-up visits as told by your health care provider. This is important. Contact a health care provider if: ??? You have pain that gets worse or does not get better with medicine. ??? Your legs or feet become painful or swollen. ??? You have more redness, swelling, or pain around your incision. ??? You have fluid or blood coming from your incision. ??? Your incision feels warm to the touch. ??? You have pus or a bad smell coming from your incision. ??? You have a fever. ??? You vomit or feel nausea. ??? You have weakness or numbness in your legs that is new or getting worse. ??? You have trouble controlling urination or bowel movements. Get help right away if: ??? You have severe pain. ??? You have chest pain. ??? You have trouble breathing. ??? You develop a cough. These symptoms may represent a serious problem that is an emergency. Do not wait to see if the symptoms will go away. Get medical help right away. Call your local emergency services (911 in the [place] Do not drive yourself to the hospital. Summary ??? It is common to have pain at the back and incision area. ??? Icing and pain medicines may help to control the pain. Follow directions from your health care provider. ??? Rest and protect your back as much as possible. Do not twist or bend at the waist. Get up and walk at least every few hours as told by your health care provider. This information is not intended to replace advice given to you by your health care provider. Make sure you discuss any questions you have with your health care provider. Document Revised: 06/18/2019 Document Reviewed: 09/16/2017 [employer] Patient Education ? 2020 [employer]. Pharmacology General Anesthesia, Adult, Care After This sheet gives you information about how to care for yourself after your procedure. Your health care provider may also give you more specific instructions. If you have problems or questions, contact your health care provider. What can I expect after the procedure? After the procedure, the following side effects are common: ??? Pain or discomfort at the IV site. ??? Nausea. ??? Vomiting. ??? Sore throat. ??? Trouble concentrating. ??? Feeling cold or chills. ??? Weak or tired. ??? Sleepiness and fatigue. ??? Soreness and body aches. These side effects can affect parts of the body that were not involved in surgery. Follow these instructions at home: For at least 24 hours after the procedure: ??? Have a responsible adult stay with you. It is important to have someone help care for you until you are awake and alert. ??? Rest as needed. ??? Do not: ? Participate in activities in which you could fall or become injured. ? Drive. ? Use heavy machinery. ? Drink alcohol. ? Take sleeping pills or medicines that cause drowsiness. ? Make important decisions or sign legal documents. ? Take care of children on your own. Eating and drinking ??? Follow any instructions from your health care provider about eating or drinking restrictions. ??? When you feel hungry, start by eating small amounts of foods that are soft and easy to digest (bland), such as toast. Gradually return to your regular diet. ??? Drink enough fluid to keep your urine pale yellow. ??? If you vomit, rehydrate by drinking water, juice, or clear broth. General instructions ??? If you have sleep apnea, surgery and certain medicines can increase your risk for breathing problems. Follow instructions from your health care provider about wearing your sleep device: ? Anytime you are sleeping, including during daytime naps. ? While taking prescription pain medicines, sleeping medicines, or medicines that make you drowsy. ??? Return to your normal activities as told by your health care provider. Ask your health care provider what activities are safe for you. ??? Take spbf-knd-remqnfl and prescription medicines only as told by your health care provider. ??? If you smoke, do not smoke without supervision. ??? Keep all follow-up visits as told by your health care provider. This is important. Contact a health care provider if: ??? You have nausea or vomiting that does not get better with medicine. ??? You cannot eat or drink without vomiting. ??? You have pain that does not get better with medicine. ??? You are unable to pass urine. ??? You develop a skin rash. ??? You have a fever. ??? You have redness around your IV site that gets worse. Get help right away if: ??? You have difficulty breathing. ??? You have chest pain. ??? You have blood in your urine or stool, or you vomit blood. Summary ??? After the procedure, it is common to have a sore throat or nausea. It is also common to feel tired. ??? Have a responsible adult stay with you for the first 24 hours after general anesthesia. It is important to have someone help care for you until you are awake and alert. ??? When you feel hungry, start by eating small amounts of foods that are soft and easy to digest (bland), such as toast. Gradually return to your regular diet. ??? Drink enough fluid to keep your urine pale yellow. ??? Return to your normal activities as told by your health care provider. Ask your health care provider what activities are safe for you. This information is not intended to replace advice given to you by your health care provider. Make sure you discuss any questions you have with your health care provider. Document Revised: 10/01/2018 Document Reviewed: 05/14/2018 Elsevier Patient Education ? 2019 [employer] documented in this encounter Plan of Treatment Upcoming Encounters Date Type Department Care Team (Late st Contact Info) Description 12/26/2025 12:45 PM EDT Office Visit [address] [phone] Enrique Barrera MD [address] [place] [address] 05/11/2026 1:30 PM EDT Appointment [address] [place] [phone] documented as of this encounter Visit Diagnoses Not on filedocumented in this encounter Care Teams Lens Assistant Relationship Specialty Start Date End Date Celia Oscar MD [address] [facility] [place] [address] PCP - General General Internal Medicine 11/24/2211/12 Celia Oscar MD [address] [facility] [place] [address] PCP - General General Internal Medicine 12/27/24 documented as of this encounter
--- OUTSIDE RECORDS SUMMARY | 2025-06-13 11:44 | XMS_ITS | Encounter Summary ---
Author Organization [employer] ([place], [place], [place], [place]) Address [address] [place] [address] Care Team Providers Care Service Observer Chief Name Role Phone Celia Oscar MD Primary Care Provider [phone] Celia Oscar MD Primary Care Provider [phone] Encounter Details Date Type Department Care Team (Late st Contact Info) Description 03/08/2021 Transcribed Document [facility] [place] [facility] [place] [address] ProviderJose MD [address] [place] [address] Social History Tobacco Use Types Packs/Day [...] 03/08/2021 8:11 AM CDT [facility] Main OR PostOp Summary Primary Physician: NE SHULTZ MD-ORT Finalized Date/Time: 03/08/21 12:03:35 Pt. Name: CYDNEY HAN /Sex: 1945 Female Med Rec #: [id number] Physician: NE SHULTZ MD-ORT Financial #: [id number] Pt. Type: O Room/Bed: [facility]/1 Admit/Disch: 03/08/21 04:28:00 - 03/08/21 12:00:00 Institution: [facility] Main OR PostOp Case Times Entry 1 In PACU II 03/08/21 10:57:00 Ready for PACU II 03/08/21 12:00:00 Discharge Discharge from PACU 03/08/21 12:00:00 II Last Modified By: Martina Siegel RN 03/08/21 12:03:25 [facility] OR PostOp Case Times Audit 03/08/21 12:03:25 Liquor Tester: COCKRUTH Modifier: COCKREH <+> 1 Ready for PACU II Discharge <+> 1 Discharge from PACU II Finalized By: Martina Siegel RN Document Signatures Signed By: Martina Siegel RN 03/08/21 12:03 documented in this encounter Plan of Treatment Upcoming Encounters Date Type Department Care Team (Late st Contact Info) Description 12/26/2025 12:45 PM EDT Office Visit [address] [phone] Enrique Barrera MD [address] [place] [address] 05/11/2026 1:30 PM EDT Appointment [address] [place] [phone] documented as of this encounter Visit Diagnoses Not on filedocumented in this encounter Care Teams Service Observer Chief Relationship Specialty Start Date End Date Celia Oscar MD [address] [place] [address] PCP - General General Internal Medicine 11/24/2211/12 Celia Oscar MD [address] [place] [address] PCP - General General Internal Medicine 12/27/24 documented as of this encounter
--- OUTSIDE RECORDS SUMMARY | 2025-06-13 11:44 | XMS_ITS | Encounter Summary ---
Author Organization [employer] ([place], [place], [place], [place]) Address [address] [place] [address] Care Team Providers Care Overlock Hemmer Name Role Phone Celia Oscar MD Primary Care Provider [phone] Celia Oscar MD Primary Care Provider [phone] Encounter Details Date Type Department Care Team (Late st Contact Info) Description 03/08/2021 Transcribed Document [facility] [place] [facility] [place] [address] ProviderJose MD [address] [place] [address] Social History Tobacco Use Types Packs/Day Years Used Date Smoking Tobacco: Never Assessed Comments Unknown Sex and Gender Information Value Date Recorded Sex Assigned at Not on file Legal Sex Female 12:31 PM CDT Gender Identity Not on file Sexual Orientation Not on file documented as of this encounter Miscellaneous Notes * Cerner Conversion Note - Jose ProviderMD - 03/08/2021 7:09 AM CDT PAT Adult Entered On: 03/08/2021 7:13 EDT Performed On: 03/08/2021 7:09 EDT by LUTHER SEVILLA RN Vital Measurements Temperature Source : Temporal artery scanning Temperature Mode : Fahrenheit Temperature, Fahrenheit : 98.2 Deg F Clinical Temperature, C : 36.8 Deg C Pulse Method : Non-Invasive BP Device Peripheral Pulse Rate : 85 bpm Respiratory Rate : 16 Breaths/Min Blood Pressure Location : Arm, left upper Blood Pressure Source : Non-Invasive BP Device Blood Pressure Position : Sitting Systolic Blood Pressure : 176 mmHg (HI) Diastolic Blood Pressure : 90 mmHg Oxygen Saturation : 97 % Oxygen Therapy Mode : Room air LUTHER SEVILLA RN - 03/08/2021 7:09 EDT Pain Assessment Pain Assessment : Initial assessment Pain Scale Goal : 3 Pain Scale Used : 0-10 Scale LUTHER SEVILLA RN - 03/08/2021 7:09 EDT Height and Weight, Clinical Dosing Height Source : Stated Height Entry Format : [place] Height, Feet : 5 ft(Converted to: 152 cm, 60 Inch) Height, Inches : 5.5 Inch(Converted to: 0 ft 6 Inch, 13.97 cm) Clinical Height : 166.37 cm Weight Source : Standing scale Weight Entry Format : [place] Clinical Dosing Weight : 94.09 kg Weight, Pounds : 207 lb Body Surface Area (BSA) : 2.02 m2 Body Mass Index : 34 kg/m2 (HI) [place] Body Weight : 58 kg LUTHER SEVILLA RN - 03/08/2021 7:09 EDT Health Histories Smoking Status : Never (less than 100 in lifetime; none in last 30 days) Smokeless Tobacco Status : Never Implant/Device Type, Engine Room Helper and Model : wrist plate, right dental implants LUTHER SEVILLA RN - 03/08/2021 7:09 EDT Social History (As Of: 03/08/2021 07:13:12 EDT) Tobacco: Smoking Status Never smoker. (Last [...] patient ever been tested for COVID-19? : Yes, Patient stated results Negative Where are the test results? : In EMR Results Date of COVID-19 test known? : Yes Date of COVID-19 Test : 03/06/2021 EDT Does patient have symptoms of COVID-19? : No COVID19 Screening : No Experiencing Infectious Disease Symptoms : No symptoms Physical contact outside [place] in the last 30 days : No Infectious Disease History : Chicken pox/Shingles, Measles, Mononucleosis, Mumps, Rubella, Pertussis (Whooping cough) Tuberculosis Symptoms : None LUTHER SEVILLA RN - 03/08/2021 7:09 EDT COVID19 PreProcedure Screening Is this an Emergent or Add on Procedure? : No Date PreProcedure COVID-19 test known? : Yes Date of PreProcedure COVID-19 : 03/06/2021 EDT Has patient been isolated since the test : No Exposed to COVID19 symptoms since test? : No LUTHER SEVILLA RN - 03/08/2021 7:09 EDT Anesthesia/Transfusion History Family History of Anesthesia Reaction : No prior transfusion(s) Transfusion History : Prior anesthesia without reaction Family History of Anesthesia Reaction : Other: mother severe N/V LUTHER SEVILLA RN - 03/08/2021 7:09 EDT Functional Assessment Functional ADL Evaluation Index EBN Bathing : Independent (2) Dressing : Independent (2) Toileting : Independent (2) Transferring Bed or Chair : Independent (2) Continence : Independent (2) Feeding : Independent (2) LUTHER SEVILLA RN - 03/08/2021 7:09 EDT ADL Index Score : 12 LUTHER SEVILLA RN - 03/08/2021 7:09 EDT Advance Directive Patient has Advance Directive *Q : No, patient refuses Advance Directive information LUTHER SEVILLA RN - 03/08/2021 7:09 EDT Spiritual/Cultural Needs Any Spiritual/Cultural Needs or Requests : No LUTHER SEVILLA RN - 03/08/2021 7:09 EDT [place] Suicide Severity Rating Scale (C-SSRS) CSSRS Past Month Wish to be : No CSSRS Past Month Suicidal Thoughts : No CSSRS Lifetime Suicide Behavior : No Suicide Severity Rating Score : 0 Suicide Severity Rating : No Additional Care Required at this time LUTHER SEVILLA RN - 03/08/2021 7:09 EDT Psychosocial History Do You Have a History of the Following? : Anxiety Currently in Unsafe Situation : No LUTHER SEVILLA RN - 03/08/2021 7:09 EDT Teaching/Learning Assessment Barriers To Learning : None evident Individuals Taught : Patient Learning Style Preferences Patient : None Learning Style Preferences Family : None LUTHER SEVILLA RN - 03/08/2021 7:09 EDT General Info Arrived From : Home Mode of Arrival on Unit : Ambulatory Legal Guardian : Spouse Support Person/Pt Rep Name : Dima Paniagua Family/Rep/Phys Notified of Admit : No Emergency Contact #1 : Dima Zahida Emergency Contact #1 Emergency Contact #1 Relationship : spouse Emergency Contact #2 : . Emergency Contact #2 Phone Number : . Emergency Contact #2 Relationship : . Primary Language : Nepalese Communication Barrier : None Grip Assembler Needed : No LUTHER SEVILLA RN - 03/08/2021 7:09 EDT Juan Alberto Scale Juan Alberto Sensory Perception : No impairment Juan Alberto Moisture : Rarely moist Juan Alberto Activity : Walks frequently Juan Alberto Mobility : Slightly limited Juan Alberto Nutrition : Adequate Juan Alberto Friction and Shear : No apparent problem Juan Alberto Score : 21 LUTHER SEVILLA RN - 03/08/2021 7:09 EDT Sleep Apnea Risk Assmt Hx of Obstructive Sleep Apnea Diagnosis : No Snore Loudly : No Tired, Fatigued, or Sleepy During Day : Yes Observed Stopping Breathing During Sleep : No Have/Are Being Treated for Hypertension : Yes BMI Greater Than 35 kg/m2 : No Age over 50 Years Old : Yes Neck Circumference Greater Than 40 cm : No Gender Male : No STOP-BANG Sleep Apnea Risk Level Score : 3 LUTHER SEVILLA RN - 03/08/2021 7:09 EDT Pain Scale Intensity : 0 LUTHER SEVILLA RN - 03/08/2021 7:09 EDT Image 4 - Images currently included in the form version of this document have not been included in the text rendition version of the form. Electronically signed by Arturo Sykes Conversion Software Engineering Specialist Cerner at 01/29/2023 7:19 PM CDT documented in this encounter Plan of Treatment Upcoming Encounters Date Type Department Care Team (Late st Contact Info) Description 12/26/2025 12:45 PM EDT Office Visit [address] [phone] Enrique Barrera MD [address] [place] [address] 05/11/2026 1:30 PM EDT Appointment [address] [place] [phone] documented as of this encounter Visit Diagnoses Not on filedocumented in this encounter Care Teams Overlock Hemmer Relationship Specialty Start Date End Date Celia Oscar MD [address] [place] [address] PCP - General General Internal Medicine 11/24/2211/12 Celia Oscar MD [address] [place] [address] PCP - General General Internal Medicine 12/27/24 documented as of this encounter
--- OUTSIDE RECORDS SUMMARY | 2025-06-13 11:44 | XMS_ITS | Encounter Summary ---
Author Organization [employer] ([place], [place], [place], [place]) Address [address] [place] [address] Care Team Providers Care Professional Bass Fisherman Name Role Phone Celia Oscar MD Primary Care Provider [phone] Celia Oscar MD Primary Care Provider [phone] Encounter Details Date Type Department Care Team (Late st Contact Info) Description 03/08/2021 Transcribed Document [facility] [place] [facility] [place] [address] ProviderJose MD [address] [place] [address] Social History Tobacco Use Types Packs/Day Years Used Date Smoking Tobacco: Never Assessed Comments Unknown Sex and Gender Information Value Date Recorded Sex Assigned at Not on file Legal Sex Female 12:31 PM CDT Gender Identity Not on file Sexual Orientation Not on file documented as of this encounter Miscellaneous Notes * Cerner Conversion Note - Jose ProviderMD - 03/08/2021 11:35 AM CDT Event Note Entered On: 03/08/2021 11:36 EDT Performed On: 03/08/2021 11:35 EDT by Martina Siegel RN Event Note Event Date/Time : 03/08/2021 11:30 EDT Description of Event : PT HERE AT BEDSIDE Martina Siegel RN - 03/08/2021 11:35 EDT Electronically signed by [facility] Conversion Reticle Printer Cerner at 01/29/2023 7:04 PM CDT documented in this encounter Plan of Treatment Upcoming Encounters Date Type Department Care Team (Late st Contact Info) Description 12/26/2025 12:45 PM EDT Office Visit [address] [phone] Enrique Barrera MD [address] [place] [phone] 05/11/2026 1:30 PM EDT Appointment [address] [place] [address] documented as of this encounter Visit Diagnoses Not on filedocumented in this encounter Care Teams Professional Bass Fisherman Relationship Specialty Start Date End Date Celia Oscar MD [address] [place] [address] PCP - General General Internal Medicine 11/24/2211/12 Celia Oscar MD [address] [place] [address] PCP - General General Internal Medicine 12/27/24 documented as of this encounter
--- OUTSIDE RECORDS SUMMARY | 2025-06-13 11:44 | XMS_ITS | Encounter Summary ---
Author Organization [employer] ([place], [place], [place], [place]) Address [address] [place] [address] Care Team Providers Care Assistant Cook Name Role Phone Celia Oscar MD Primary Care Provider [phone] Celia Oscar MD Primary Care Provider [phone] Encounter Details Date Type Department Care Team (Late st Contact Info) Description 03/08/2021 Transcribed Document [facility] Formerly [facility] [address] ProviderJose MD [address] [place] [id number] Social History Tobacco Use Types Packs/Day Years Used Date Smoking Tobacco: Never Assessed Comments Unknown Sex and Gender Information Value Date Recorded Sex Assigned at Not on file Legal Sex Female 12:31 PM CDT Gender Identity Not on file Sexual Orientation Not on file documented as of this encounter Miscellaneous Notes * Cerner Conversion Note - Jose ProviderMD - 03/08/2021 8:11 AM CDT [facility] Main OR IntraOp Summary Primary Physician: NE SHULTZ MD-ORT Finalized Date/Time: 03/12/21 11:56:35 Pt. Name: KARISSA HAN /Sex: 1945 Female Med Rec #: [id number] Physician: NE SHULTZ MD-KAMI Financial #: [id number] Pt. Type: O Room/Bed: [facility]/ Admit/Disch: 03/08/21 04:28:00 - 03/08/21 12:00:00 Institution[place] [facility] [place]Op Case Attendance Entry 1 Entry 2 Entry 3 Case Attendee NE SHULTZ MD-KAMI MEZA, JAYY Guzman APRN, CRUMP, SONIA, HEATHER OFFICE MACHINE SERVICER-ANS Role Performed Surgeon/Proceduralist, OFFICE MACHINE SERVICER/Nurse Msws Physician respiratory assistant First Time In 03/08/21 07:31:00 03/08/21 07:31:00 03/08/21 07:31:00 Time Out 03/08/21 09:28:00 03/08/21 09:41:00 03/08/21 09:27:00 Procedure Lumbar Fusion Posterior Lumbar Fusion Posterior Lumbar Fusion Posterior Other Attendee Superficial Wound Closed By: Last Modified By: Baylee Saldivar RN Wellnitz, Sara, Baylee Hooper RN 03/08/21 09:31:41 03/08/21 09:41:48 03/08/21 09:31:41 Entry 4 Entry 5 Entry 6 Case Attendee Baylee Saldivar, MARILUZ WATTERS, EZ SHORE TECH Role Performed Isotope Technician, First Scrub, First Aircraft Shipping Checker, Ancillary Time In 03/08/21 07:31:00 03/08/21 07:31:00 03/08/21 07:31:00 Time Out 03/08/21 09:41:00 03/08/21 09:41:00 03/08/21 09:41:00 Procedure Lumbar Fusion Posterior Lumbar Fusion Posterior Lumbar Fusion Posterior Other Attendee Superficial Wound Closed By: Last Modified By: Baylee Saldivar RN Wellnitz, Sara, Baylee Hooper RN 03/08/21 09:41:48 03/08/21 09:41:48 03/08/21 09:41:48 Entry 7 Entry 8 Entry 9 Case Attendee OTHER, ATTENDEE #1 OTHER, ATTENDEE #2 Gary George, SYSTEM SUPPORT ANALYST Role Performed Vendor Vendor Cut Pressman Time In 03/08/21 07:31:00 03/08/21 07:31:00 03/08/21 07:31:00 Time Out 03/08/21 09:29:00 03/08/21 09:29:00 03/08/21 09:28:00 Procedure Lumbar Fusion Posterior Lumbar Fusion Posterior Lumbar Fusion Posterior Other Attendee Héctor UNGER Superficial Wound Closed By: Last Modified By: Baylee Saldivar RN Wellnitz, Sara, RN Wellnitz, Sara, RN 03/08/21 07:48:00 03/08/21 07:48:00 03/08/21 09:31:41 Entry 10 Entry 11 Case Attendee BUCK KHAN PA-C OTHER, ATTENDEE #3 Role Performed Physician respiratory assistant Vendor Time In 03/08/21 09:27:00 03/08/21 07:31:00 Time Out 03/08/21 09:41:00 03/08/21 09:29:00 Procedure Lumbar Fusion Posterior Lumbar Fusion Posterior Other Attendee ANOOP MEZA Superficial Wound Closed By: Last Modified By: Baylee Saldivar RN Wellnitz, Sara, RN 03/08/21 09:41:48 03/08/21 09:31:41 [facility] IntraOp Case Attendance Audit 03/08/21 09:41:48 Street Light Repairer: PAULA Modifier: PAULA 1 <*> Procedure Lumbar Fusion Posterior 2 <+> Time Out 2 <*> Procedure Lumbar Fusion Posterior 3 <*> Procedure Lumbar Fusion Posterior 4 <+> Time Out 4 <*> Procedure Lumbar Fusion Posterior 5 <+> Time Out 5 <*> Procedure Lumbar Fusion Posterior 6 <+> Time Out 6 <*> Procedure Lumbar Fusion Posterior 7 <*> Procedure Lumbar Fusion Posterior 8 <*> Procedure Lumbar Fusion Posterior 9 <*> Procedure Lumbar Fusion Posterior 10 <+> Time Out 10 <*> Procedure Lumbar Fusion Posterior 11 <*> Procedure Lumbar Fusion Posterior 03/08/21 09:31:41 Street Light Repairer: PAULA Modifier: BONGA 1 <+> Time Out 1 <*> Procedure Lumbar Fusion Posterior 3 <+> Time Out 3 <*> Procedure Lumbar Fusion Posterior 7 <+> Time Out 7 <*> Procedure Lumbar Fusion Posterior 8 <+> Time Out 8 <*> Procedure Lumbar Fusion Posterior 9 <+> Time Out 9 <*> Procedure Lumbar Fusion Posterior <+> 10 Case Attendee <+> 10 Role Performed <+> 10 Time In <+> 10 Procedure <+> 11 Case Attendee <+> 11 Role Performed <+> 11 Time In <+> 11 Time Out <+> 11 Procedure <+> 11 Other Attendee 03/08/21 07:54:10 Street Light Repairer: BONGA Modifier: WELLNISA 1 <+> Time In 1 <*> Procedure Lumbar Fusion Posterior 2 <+> Time In 2 <*> Procedure Lumbar Fusion Posterior 3 <+> Time In 3 <*> Procedure Lumbar Fusion Posterior 4 <+> Time In 4 <*> Procedure Lumbar Fusion Posterior 5 <+> Time In 5 <*> Procedure Lumbar Fusion Posterior 6 <+> Time In 6 <*> Procedure Lumbar Fusion Posterior 7 <+> Time In 7 <*> Procedure Lumbar Fusion Posterior 8 <+> Time In 8 <*> Procedure Lumbar Fusion Posterior 9 <+> Time In 9 <*> Procedure Lumbar Fusion Posterior [facility] IntraOp Case Times Entry 1 Patient In Room Time 03/08/21 07:31:00 Out Room Time 03/08/21 09:41:00 Anesthesia Start Time 03/08/21 07:31:00 Stop Time 03/08/21 09:41:00 Anesthesia Ready 03/08/21 07:31:00 Surgery / Procedure Times Start Time 03/08/21 08:11:00 Stop Time 03/08/21 09:36:00 Last Modified By: Baylee Saldivar RN 03/08/21 07:48:26 [facility] IntraOp Case Times Audit 03/08/21 09:41:46 Street Light Repairer: WELLNISA Modifier: WELLNISA <+> 1 Out Room Time <+> 1 Stop Time 03/08/21 09:36:54 Street Light Repairer: WELLNISA Modifier: WELLNISA <+> 1 Stop Time 03/08/21 08:11:42 Street Light Repairer: WELLNISA Modifier: WELLNISA <+> 1 Start Time [facility] IntraOp Communication Entry 1 Entry 2 Communication To Family/Significant other Family/Significant other Comment PROCEDURE START CLOSIING Communication By Baylee Saldivar RN Wellnitz, Sara, RN Date and Time 03/08/21 09:15:00 03/08/21 09:16:00 Last Modified By: Baylee Saldivar RN Wellnitz, Sara, RN 03/08/21 07:48:44 03/08/21 09:16:40 S[facility] IntraOp Communication Audit 03/08/21 09:16:40 Street Light Repairer: PAULA Modifier: PAULA <+> 1 Date and Time <+> 2 Communication By <+> 2 Date and Time <+> 2 Communication To <+> 2 Comment [facility] IntraOp Counts Verification Entry 1 Procedure Lumbar Fusion Posterior Count Info Count Type Sponge, Sharps Counts Verification Baseline/pre-procedure Sequence Count Results Not Applicable Counts Performed By Count Performed By MARILUZ PACHECO, OR (Scrub) TECH Count Performed By Baylee Saldivar RN (RN) Last Modified By: Baylee Saldivar RN 03/08/21 07:48:58 [facility] IntraOp Counts Final Entry 1 Procedure Lumbar Fusion Posterior Final Count Info Count Type Sponge, Sharps Counts Verification Skin Closure/end of Sequence procedure Count Results Correct, surgeon notified Counts Performed By Count Performed By MARILUZ PACHECO, OR (Scrub) TECH Count Performed By Baylee Saldivar RN (RN) Last Modified By: Baylee Saldivar RN 03/08/21 09:17:02 [facility] IntraOp Cultures and Spec Summary Entry 1 Cultrures and Specimens Specimen Ordered: Yes Test(s) Routine/Path-Lab Requested/Final Disposition Last Modified By: Baylee Saldivar RN 03/08/21 07:49:04 S[facility] IntraOp Departure from OR Entry 1 Integumentary Assessment Integumentary WDL Assessment WDL Transfer/Handoff Transfer to PACU Phase I Handoff Method Bedside/Face to face Post-op Transport Bed (including Via specialty) Patient Transport Baylee Saldivar RN, Accompanied by JAYY MEZA, PARTS ROOM ASSOCIATE, OFFICE MACHINE SERVICER-ANS Last Modified By: Baylee Saldivar RN 03/08/21 09:31:48 [facility] IntraOp Dressing and Packing Entry 1 Type Dressing Location LOWER BACK Wound Dressing Item Occlusive dressing, Skin Closure Glue Applied By DEN ROGERS PA-C Other Comments AQUACEL AND COVADERM DRESSINGS APPLIED, DERMABOND PRINEO APPLIED Last Modified By: Baylee Saldivar RN 03/08/21 08:14:58 S[facility] IntraOp Fire Risk Assessment Entry 1 Fire Info Surgical Site or 0- No Incision Above the Xyphoid Open O2 Source 0- No (Mask or Cannula) Available Ignition 1- Yes (ESU, Laser, Light Source) Fire Risk 1 Assessment Score Fire Score Fire Risk Yes Assessment Complete Fire Risk Baylee Saldivar RN Assessment Verified By Fire Risk 03/08/21 07:49:00 Assessment Verified Date/Time Fire Risk High Risk Protocol Yes Implemented Standard Fire Yes Safety Precautions Followed Last Modified By: Baylee Saldivar RN 03/08/21 07:49:12 S[facility] IntraOp General Case Debit Agent 1 Case Information OR OR 01 SJE Case Level 1 Room Verified Yes Wound Class I - Clean Specialty Neurosurgery Anesthesia Type General ASA Class 3 Diagnosis Preop Diagnosis LOW BACK PAIN Postop Diagnosis SEE POST OP NOTE Last Modified By: Baylee Saldivar RN 03/08/21 07:51:49 [facility] IntraOp General Case Data Audit 03/08/21 08:14:35 Street Light Repairer: PAULA Modifier: PAULA <+> 1 Room Verified [facility] IntraOp Implant Log Entry 1 Entry 2 Entry 3 Type Tissue Implant Tissue Implant Tissue Implant (Biologic) (Biologic) (Biologic) Implant Log Implant Type Tissue Implant Type Bone Bone Bone Implant BONE VIVIGEN FORMABLE TB DIVERTED 1 ALLGRFT TB STRAIGHT 1 ALLGRFT Identification [id number] Description Implant Quantity 1 8 1 Implant Site LUMBAR SPINE... LUMBAR SP INE LUMBAR SP INE Implant [id number] Identification Model Number Implant [id number] Identification Serial Number Implant Identification Lot Number Implant Lifenet:Lifenet Musculoskeletal Musculoskeletal Identification Transplant Srv Transplant Fnd Transplant Fnd Door Serviceman Name: Implant [id number] Identification Catalog Number Implant Size Implant Has an Yes Yes Yes Expiration Date Implant Expiration 02/12/22 10/16/22 06/08/22 Date Wasted Radioactive Material Time Implanted Tissue Implant Continue for Tissue Implant Documentation Tissue Identification Number Graft Prep Per Yes Yes Yes Door Serviceman Instructions: Tissue Preparation Thawed N/A N/A Method: Reconstitution Solution: Reconstitution Solution Lot Number Reconstitution Solution Expiration Date: Thawing Solution NACL Thawing Solution [id number] Lot Number Thawing Solution 03/20/21 Expiration Date Preparation Materials, Other Preparation Materials, Other Lot Number Preparation Materials, Other Expiration Date Tissue ANTROBUS, MARILUZ, OR ANTROBUS, MARILUZ, OR ANTROBUS, MARILUZ, OR Prepared/Processed TECH TECH TECH By Door Serviceman Yes Yes Yes Paperwork Completed Implant Type Comment Last Modified By: Baylee Saldivar RN Wellnitz, Sara, RN Wellnitz, Sara, RN 03/08/21 08:18:50 03/08/21 08:18:50 03/08/21 08:18:50 Entry 4 Entry 5 Entry 6 Type Implant (Synthetic) Implant (Synthetic) Implant (Synthetic) Implant Log Implant Type Hardware Hardware Hardware Tissue Implant Type Implant MIS AARON PLY SCRW SET [id number] LORDOTIC MIS AARON PLY SCRW SET Identification [id number] Description Implant Quantity 6 2 6 Implant Site LUMBAR SP INE LUMBAR SP INE LUMBAR SP INE Implant Identification Model Number Implant Identification Serial Number Implant Identification Lot Number Implant J&J:Depuy:Depuy Spine J&J:Depuy:Depuy Spine J&J:Depuy:Depuy Spine Identification Door Serviceman Name: Implant [id number] Identification Catalog Number Implant Size Implant Has an No No No Expiration Date Implant Expiration Date Wasted Radioactive Material Time Implanted Tissue Implant Continue for Tissue Implant Documentation Tissue Identification Number Graft Prep Per Door Serviceman Instructions: Tissue Preparation Method: Reconstitution Solution: Reconstitution Solution Lot Number Reconstitution Solution Expiration Date: Thawing Solution Thawing Solution Lot Number Thawing Solution Expiration Date Preparation Materials, Other Preparation Materials, Other Lot Number Preparation Materials, Other Expiration Date Tissue Prepared/Processed By Door Serviceman Paperwork Completed Implant Type Comment Last Modified By: Baylee Saldivar RN Wellnitz, Sara, RN Wellnitz, Sara, RN 03/08/21 08:18:50 03/08/21 08:18:50 03/08/21 08:18:50 Entry 7 Entry 8 Entry 9 Type Implant (Synthetic) Implant (Synthetic) Implant (Synthetic) Implant Log Implant Type Valve(s) Hardware Other Tissue Implant Type Implant SYS OPTIMESH EXP INTBDY IMP VPR PRM CFXFEN XTAB SYS OPTIMESH EXP INTBDY Identification [id number] Description Implant Quantity 1 6 1 Implant Site LUMBAR SPINE LUMBAR SP INE LUMBAR FUSION Implant Identification Model Number Implant Identification Serial Number Implant [id number] Identification Lot Number Implant Spineology J&J:Depuy:Depuy Spine Spineology Identification Door Serviceman Name: Implant [id number] Identification Catalog Number Implant Size Implant Has an Yes No Yes Expiration Date Implant Expiration 12/10/25 12/10/25 Date Wasted Radioactive Material Time Implanted Tissue Implant Continue for Tissue Implant Documentation Tissue Identification Number Graft Prep Per Door Serviceman Instructions: Tissue Preparation Method: Reconstitution Solution: Reconstitution Solution Lot Number Reconstitution Solution Expiration Date: Thawing Solution Thawing Solution Lot Number Thawing Solution Expiration Date Preparation Materials, Other Preparation Materials, Other Lot Number Preparation Materials, Other Expiration Date Tissue Prepared/Processed By Door Serviceman Paperwork Completed Implant Type Comment Last Modified By: Baylee Saldivar, Baylee Hooper, Baylee Hooper, ERMA 03/08/21 09:00:29 03/08/21 09:16:05 03/08/21 09:16:05 SJElif IntraOp Implant Log Audit 03/12/21 11:55:18 Street Light Repairer: MELLINR Modifier: MELLINR 1 <*> Implant Identification Description BONE VIVIGEN FORMABLE [facility]-[id number] 1 <*> Implant Site LUMBAR SPINE 03/12/21 11:52:48 Street Light Repairer: PAULA Modifier: MELLINR 8 <*> Implant Identification Description SCR SPNE CHUCHO FIX FEN [id number] <*> Implant Identification Catalog [id number] Number 03/08/21 09:27:40 Street Light Repairer: PAULA Modifier: WELLNISA 2 <*> Implant Identification Description TB DIVERTED 1 ALLGRFT [id number] 2 <*> Implant Quantity 5 <+> 4 Implant Identification Description <+> 4 Implant Identification Door Serviceman Name: <+> 4 Implant Quantity <+> 4 Implant Identification Catalog Number 8 <*> Implant Identification Description SCR SPNE CHUCHO FIX FEN [id number] <*> Implant Identification Catalog [id number] Number 03/08/21 09:16:05 Street Light Repairer: PAULA Modifier: WELLNISA <+> 5 Implant Identification Description <+> 5 Implant Identification Door Serviceman Name: <+> 5 Implant Quantity <+> 5 Implant Identification Catalog Number <+> 6 Implant Identification Description <+> 6 Implant Identification Door Serviceman Name: <+> 6 Implant Quantity <+> 6 Implant Identification Catalog Number <+> 8 Implant Identification Description <+> 8 Implant Identification Door Serviceman Name: <+> 8 Implant Site <+> 8 Implant Quantity <+> 8 Implant Identification Catalog Number <+> 8 Implant Type <+> 8 Implant Has an Expiration Date <+> 8 Type <+> 9 Implant Identification Description <+> 9 Implant Identification Lot Number <+> 9 Implant Identification Door Serviceman Name: <+> 9 Implant Expiration Date <+> 9 Implant Site <+> 9 Implant Quantity <+> 9 Implant Identification Catalog Number <+> 9 Implant Type <+> 9 Implant Has an Expiration Date <+> 9 Type 03/08/21 09:00:29 Street Light Repairer: PAULA Modifier: WELLZANDERA 2 <*> Implant Identification Description TB DIVERTED 1 [id number] 2 <*> Implant Quantity 2 <+> 7 Implant Identification Description <+> 7 Implant Identification Lot Number <+> 7 Implant Identification Door Serviceman Name: <+> 7 Implant Expiration Date <+> 7 Implant Site <+> 7 Implant Quantity <+> 7 Implant Identification Catalog Number <+> 7 Implant Type <+> 7 Implant Has an Expiration Date <+> 7 Type 03/08/21 08:39:32 Street Light Repairer: PAULA Modifier: WELLZANDERA <+> 2 Implant Identification Description <+> 2 Implant Identification Serial Number <+> 2 Implant Identification Door Serviceman Name: <+> 2 Implant Expiration Date <+> 2 Implant Quantity <+> 2 Implant Identification Catalog Number <+> 3 Implant Identification Description <+> 3 Implant Identification Serial Number <+> 3 Implant Identification Door Serviceman Name: <+> 3 Implant Expiration Date <+> 3 Implant Quantity <+> 3 Implant Identification Catalog Number 03/08/21 08:18:50 Street Light Repairer: PAULA Modifier: PAULA 1 <*> Implant Identification Description BONE VIVIGEN FORMABLE CELL [id number] 1 <*> Implant Identification Door Serviceman Lifenet:Lifenet Transplant Srv Name: 1 <*> Implant Expiration Date 02/12/22 1 <*> Implant Site LUMBAR SPINE 1 <*> Implant Quantity 1 1 <*> Implant Identification Catalog [id number] Number 1 <*> Tissue Implant Type Bone 1 <*> Graft Prep Per Door Serviceman Yes Instructions: 1 <*> Tissue Preparation Method: Thawed 1 <*> Thawing Solution NACL 1 <*> Thawing Solution Lot Number [id number] 1 <*> Thawing Solution Expiration Date 03/20/21 1 <*> Tissue Prepared/Processed By ANTOpenVPNUS, MARILUZ, OR TECH 1 <*> Door Serviceman Paperwork Completed Yes 1 <*> Implant Identification Model Number [id number] 1 <*> Implant Has an Expiration Date Yes 1 <*> Type Tissue Implant (Biologic) <+> 2 Implant Site <+> 2 Tissue Implant Type <+> 2 Graft Prep Per Door Serviceman Instructions: <+> 2 Tissue Preparation Method: <+> 2 Tissue Prepared/Processed By <+> 2 Door Serviceman Paperwork Completed <+> 2 Implant Has an Expiration Date <+> 2 Type <+> 3 Implant Site <+> 3 Tissue Implant Type <+> 3 Graft Prep Per Door Serviceman Instructions: <+> 3 Tissue Preparation Method: <+> 3 Tissue Prepared/Processed By <+> 3 Door Serviceman Paperwork Completed <+> 3 Implant Has an Expiration Date <+> 3 Type <+> 4 Implant Site <+> 4 Implant Type <+> 4 Implant Has an Expiration Date <+> 4 Type <+> 5 Implant Site <+> 5 Implant Type <+> 5 Implant Has an Expiration Date <+> 5 Type <+> 6 Implant Site <+> 6 Implant Type <+> 6 Implant Has an Expiration Date <+> 6 Type [facility] IntraOp Intraoperative Assessment Entry 1 Handoff Method Bedside/Face to face Valid History / Yes Physical in Chart Preoperative Yes Checklist Reviewed/Evaluated Allergies Reviewed Yes Patient is Latex No Sensitive Isolation Not applicable Precautions Noted Level of WDL Consciousness (WDL = Alert, Oriented to Person, Place, and Time) Skin Assessment Yes Verified Present Upon IVs Arrival to OR Last Modified By: Baylee Saldivar RN 03/08/21 07:51:55 [facility] IntraOp Intraoperative Equipment Entry 1 Type Equipment Equipment Equipment [employer] Suction System ID Number [id number] Setting HIGH Intraop Monitoring Electrocardiogram Three lead placement (ECG) Electrode Placement Blood Pressure Non-Invasive BP Device Source Blood Pressure Arm, right upper Location Pulse Oximeter Hand, left Probe Site Antiembolic Devices Antiembolic Devices Sequential compression device, knee high Antiembolic Device Bilateral Location Antiembolic Device 5765 ID Number Scopes Photo/Video Documentation Photo No Video No Last Modified By: Baylee Saldivar RN 03/08/21 07:53:35 [facility] IntraOp Medication Admin Entry 1 Entry 2 Entry 3 Medication/Irrigant heparin 1000units/ml clonidine 1ml Ketorolac 30mg/ml vial 1ml - [id number] Combo Med List 1 - Combo Med 1 - Combo Med Time Administered Route of TOPICAL INJECTION INJECTION Administration Dose Dose .8 1 Unit of Measure ml ml Volume QS Administered By NE SHULTZ MD-ORT LOCKSTADT, HARRY, MD-ORT LOCKSTADT, HARRY, MD-ORT Procedure Irrigation Irrigant Volume In Irrigant Volume Out Last Modified By: Baylee Saldivar RN Wellnitz, Sara, RN Wellnitz, Sara, RN 03/08/21 07:53:48 03/08/21 07:53:48 03/08/21 07:53:48 Entry 4 Entry 5 Medication/Irrigant lidocaine 1% w/ ROPIVICAINE 5% epinephrine 1:100,000 20ml vial - [id number] Combo Med List 1 - Combo Med 1 - Combo Med Time Administered Route of INJECTION INJECTION Administration Dose Dose 23.2 25 Unit of Measure ml ml Volume Administered By NE SHULTZ MD-ORT LOCKSTADT, HARRY, MD-ORT Procedure Irrigation Irrigant Volume In Irrigant Volume Out Last Modified By: Baylee Saldivar RN Wellnitz, Sara, RN 03/08/21 07:53:48 03/08/21 07:53:48 SJE IntraOp Patient Positioning Entry 1 Procedure Lumbar Fusion Posterior Body Position Prone Left Arm Position Secured on padded arm board Right Arm Position Secured on padded arm board Left Leg Position Uncrossed, parallel Right Leg Position Uncrossed, parallel Feet Uncrossed Yes Pressure Points Yes Checked Positioning Devices Damion Table, Jarvis Frame, Arm Board, Safety Strap, Leg(s), Pillows, Head Rest Device Position PRONE VIEW HEAD REST USED BY ANESTHESIA, GEL PADS TO BOTH ARMS, PILLOWS UNDER LOWER LEGS Positioned By Baylee Saldivar, ERMA, JAYY MEZA APRN, ISA-ANS, DEN ROGERS PA-C Position Verified Positioning Yes Verified by Anesthesia Positioning Yes Verified by Surgeon Last Modified By: Baylee Saldivar RN 03/08/21 07:53:58 SJE IntraOp Sign In Entry 1 Patient, Site, Yes Procedure Identified Surgical Consent Yes Confirmed Relevant Surgical Yes Documents Available Surgical Site Yes Marked by person performing procedure Anesthesia Machine Yes Check Completed Medication Checks Yes Completed Allergies Yes Airway Difficult No Airway/Aspiration Risk Difficult Yes Airway/Aspiration Intervention Equipment Available Blood Loss Risk No Blood Loss Yes Intervention Equipment Prepared and Ready Blood Identifiers Not applicable Verified Per Policy Hypothermia Risk Yes Warming Measures Yes Taken Last Modified By: Baylee Saldivar RN 03/08/21 07:54:05 S[facility] Intra Op Sign Out Entry 1 RN Confirmation Surgical Yes Procedure(s) Identified Instrument, Sponge Yes and Sharps Counts Correct/Documented Equipment Problems N/A Documented Specimen Labeled Yes Correctly Urinary Catheter N/A Documented in IView Torres Patient Yes Recovery Concerns Reviewed with Anesthesia Provider, Surgeon and RN Torres Patient Yes Management Concerns Reviewed with Anesthesia Provider, Surgeon and RN Safety Checklist Yes Elements Complete? RN Sign Out Baylee Saldivar RN Signature RN Sign Out 03/08/21 09:17:00 Signature Date/Time Plan of Care Outcome - Fire Risk OUTCOME STATEMENT: Goal met Patient is free from injury related to surgical fire Plan of Care Outcome - Pt Positioning OUTCOME STATEMENT: Goal met Absence of signs and symptoms of positioning injury. Plan of Care Outcome - Skin Prep OUTCOME STATEMENT: Goal met Intraoperative care is consistent with measures to prevent infection Plan of Care Outcome - Xray/Images OUTCOME STATEMENT: Goal met Absence of observable signs or symptoms of radiation injury Plan of Care Outcome - Counts OUTCOME STATEMENT: Goal met Absence of signs and symptoms of injury related to extraneous objects Last Modified By: Baylee Saldivar RN 03/08/21 09:24:57 SJE IntraOp Skin Prep Entry 1 Procedure Lumbar Fusion Posterior Prescribed Yes Pre-Surgical Prep Completed Prep Area OPERATIVE SITE Intraop Prep Integumentary WDL Assessment WDL Prep Agents Chloraprep Prep by Baylee Saldivar RN Hair Removal Methods No hair removal performed Last Modified By: Baylee Saldivar RN 03/08/21 07:54:55 SJE IntraOp Surgical Procedures Entry 1 Procedure Lumbar Fusion Posterior Additional L3-4 L4-5 POSSIBLE Procedure L5-S1 LUMBAR POSTERIOR Description FUSION Primary Procedure Yes Primary Surgeon NE SHULTZ MD-ORT Start 03/08/21 08:11:00 Stop 03/08/21 09:36:00 Anesthesia Type General Specialty Neurosurgery Wound Class I - Clean Last Modified By: Baylee Saldivar RN 03/08/21 09:41:55 SJE IntraOp Temp Regulation Devices Entry 1 Temp Regulation Temperature Forced Air Warming Regulation Device device Temperature 4763 Regulation Device Serial/Unit Number Temperature Upper body Regulation Site Temperature JAYY MEZA, PARTS ROOM ASSOCIATE, Regulation Device OFFICE MACHINE SERVICER-ANS Applied by Last Modified By: Baylee Saldivar RN 03/08/21 07:54:31 SJE IntraOp Time Out Entry 1 Procedure to be Lumbar Fusion Posterior Performed Time Out Time Out Pause Time 03/08/21 08:05:00 All activity Yes suspended (unless life threatening emergency) Team Verbally Correct patient Confirms Information identity, Correct side and site are marked, Consent form is present and accurate, Agreement on the procedure to be done, Correct patient position, Relevant images/results properly labeled/appropriately displayed, Confirm antibiotics have been administered, Confirm the skin prep has dried, Confirm prosthesis/implant/devic e is present, Performed in location of procedure after prepped/draped Antibiotic Yes Prophylaxis Administered Or In Progress Within the Last 60 Minutes Beta Marianne N/A Administered Venous Yes Thromboembolism Prophylaxis Required Anticipated Critical Events Surgeon None expected Anesthesia Provider None expected Nursing Assures Sterility of instruments, Equipment concerns or issues, Implant Availability Essential Imaging Yes Labeled and Displayed Last Modified By: Baylee Saldivar RN 03/08/21 08:27:53 [facility] IntraOp X-Ray and Images Entry 1 X-Ray/Imaging Type Fluoroscopy Fluoroscopy Type C-Arm Site OPERATIVE SITE Informatics Developer Name Gary George, SYSTEM SUPPORT ANALYST Protective Devices Yes Used Last Modified By: Baylee Saldivar RN 03/08/21 07:54:20 Case Comments <None> Finalized By: Taya Manuel, ERMA Document Signatures Signed By: Baylee Saldivar RN 03/08/21 09:42 VENTURA NEGRON RN 03/09/21 06:37 Taya Manuel RN 03/12/21 11:56 Unfinalized History Date/Time Username Reason for Unfinalizing Freetext Reason for Unfinalizing 03/09/21 06:34 RENETTA Correct Billing 03/12/21 11:50 TRIXIE Correct Billing Electronically signed by On[facility] Conversion Automotive Repair Technician Cerner at 01/29/2023 7:20 PM CDT documented in this encounter Plan of Treatment Upcoming Encounters Date Type Department Care Team (Late st Contact Info) Description 12/26/2025 12:45 PM EDT Office Visit [facility] [address] [phone] Enrique Barrera MD [address] [address] 05/11/2026 1:30 PM EDT Appointment [address] [place] [phone] documented as of this encounter Visit Diagnoses Not on filedocumented in this encounter Care Teams Assistant Cook Relationship Specialty Start Date End Date Celia Oscar MD [address] [place] [address] PCP - General General Internal Medicine 11/24/2211/12 Celia Oscar MD [address] [place] [address] PCP - General General Internal Medicine 12/27/24 documented as of this encounter
--- OUTSIDE RECORDS SUMMARY | 2025-06-13 11:44 | XMS_ITS | Encounter Summary ---
Author Organization [employer] ([place], [place], [place], [place]) Address [address] [place] [address] Care Team Providers Care Patternmaker Bench Name Role Phone Celia Oscar MD Primary Care Provider [phone] Celia Oscar MD Primary Care Provider [phone] Encounter Details Date Type Department Care Team (Late st Contact Info) Description 03/08/2021 Transcribed Document [facility] [place] [facility] [address] [place] [address] ProviderJose MD [address] [place] [id number] Social History Tobacco Use Types Packs/Day Years Used Date Smoking Tobacco: Never Assessed Comments Unknown Sex and Gender Information Value Date Recorded Sex Assigned at Not on file Legal Sex Female 12:31 PM CDT Gender Identity Not on file Sexual Orientation Not on file documented as of this encounter Miscellaneous Notes * Cerner Conversion Note - Jose ProviderMD - 03/08/2021 11:53 AM CDT [address] [address] CYDNEY HAN :1945 Visit Time:03/08/2021 What to do next Your Diagnosis Unspecified inflammatory spondylopathy, lumbar region, Unspecified inflammatory spondylopathy, lumbar region Instructions From Your Care Team Minimize twisting and bending Refer to the handouts provided in your folder for spine precautions and home safety Use walker as needed Diet as tolerated You may shower daily. Dressing is waterproof. Use antibacterial soap. If dressing becomes soiled or comes loose, remove dressing, cleanse site with peroxide, apply triple antibiotic ointment and reapply a new surgical dressing Remove Scopolamine patch behind right ear in 72 hours, wash hands after touching patch You have a prescription for percocet 7.5mg at [facility] pharmacy. take 1-2 tablets every 6 hours. Your next dose is due at 4pm today Follow-Up Appointments Follow Up with NE SHULTZ MD-ORT When 03/21/2021 11:00 AM EDT Where: [address] [place] [address] [address] [place] [address]- Medications What How Much When Instructions Next Dose acetaminophen-oxyCODONE (Percocet 7.5/ 325 oral tablet) 2 Tablet(s) Oral Every 6 Hours as needed for for pain Pickup at [facility] #[id number] amLODIPine 5 Milligram(s) Oral Every Day esomeprazole (NexIUM) 40 Milligram(s) Oral Every Day fluticasone nasal (Flonase) 1 [place](s) Nostrils Both Every Day hydroCHLOROthiazide 25 Milligram(s) Oral Every Day lisinopril 30 Milligram(s) Oral Every Day montelukast 10 Milligram(s) Oral Every Day multivitamin (Multi Vitamin+) 1 Tablet(s) Oral Every Day Non Formulary (areds2) 1 Tablet(s) Oral Every Day Non Formulary (biotin/ keratin) 48853god/100mg Oral Every Day Non Formulary (immune plus) 1 Tablet(s) Oral Every Day Non Formulary (omega3-6-9) 1600mcq Oral Every Day Non Formulary (tumeric) 500 Milligram(s) Oral Every Day Non Formulary (vitamin b 12) 5000mcq Oral Every Day simvastatin 20 Milligram(s) Oral At Bedtime zolpidem (Ambien 5 mg oral tablet) 1 Tablet(s) Oral At Bedtime Pharmacy Information [facility] #[id number]: [address] [place], [place] [id number] [phone] Take your medications faithfully. Do NOT skip medication. Do NOT stop taking medications without the direction of a physician. Carry a list of your medications with you at all times, and take this medication list with you to your first follow up visit. Report any side effects. Avoid herbal remedies unless discussed with your physician. As part of your treatment plan, your physician may have prescribed a limited course of a controlled substance. This medication may be given to help people with moderate or severe pain or for other medical conditions, but there are risks involved with treatment. Common side effects may include nausea, constipation, drowsiness, sweating, itching, dry mouth, and rash. More serious side effects may include cognitive and motor impairment, like problems with thinking, concentrating, alertness, and movement (e.g. slowed reflexes), and driving and operating heavy machinery can be dangerous. It is important for you to talk to your physician if you have these side effects or questions. These controlled substances can produce physical dependence and be habit-forming if taken for an extended period of time, which means that the body has gotten used to them and may experience withdrawal symptoms if they are abruptly stopped. Withdrawal symptoms can include runny nose, sweating, goose bumps, diarrhea, abdominal cramping, rapid heartbeat, difficulty sleeping, and nervousness. Please dispose of unused and medications per pharmacy guidance. Education Materials [employer], Adult, Care After This sheet [...] these instructions at home: Medicines ??? Take uoxp-rbs-gxtvrrm and prescription medicines only as told by [...] and water are not available, use hand brand manager. ? Change your dressing as told by [...] urine clear or pale yellow. ? Take yxtk-jae-epqosjp or prescription medicines. ? Eat foods that [...] provider. Document Revised: 06/18/2019 Document Reviewed: 09/16/2017 [employer] Patient Education ?? 2020 [employer] General Anesthesia, Adult, Care After This sheet [...] activities are safe for you. ??? Take amhx-aec-ukbdknj and prescription medicines only as told by [...] provider. Document Revised: 10/01/2018 Document Reviewed: 05/14/2018 [employer] Patient Education ?? 2020 [employer]. acetaminophen and oxycodone (a SEET a MIN oh fen and OX i KOE done) Endocet 10/325, Endocet 2.5/325, Endocet 5/325, Endocet 7.5/325, Nalocet, Percocet, Primlev What is the most important information I should know about acetaminophen and oxycodone? MISUSE OF OPIOID MEDICINE CAN CAUSE ADDICTION, OVERDOSE, OR . Keep the medication in a place where others cannot get to it. Taking opioid medicine during may cause life-threatening withdrawal symptoms in the . Fatal side effects can occur if you use opioid medicine with alcohol, or with other drugs that cause drowsiness or slow your breathing. Stop taking this medicine and call your doctor right away if you have skin redness or a rash that spreads and causes blistering and peeling. What is acetaminophen and oxycodone? Acetaminophen and oxycodone is a combination medicine used to relieve moderate to severe pain. Acetaminophen and oxycodone contains an opioide medicine and may be habit-forming. Acetaminophen and oxycodone may also be used for purposes not listed in this medication guide. What should I discuss with my healthcare provider before taking acetaminophen and oxycodone? You should not use this medicine if you are allergic to acetaminophen or oxycodone, or if you have: ?? severe asthma or breathing problems; or ?? a blockage in your stomach or intestines. Tell your doctor if you have ever had: ?? breathing problems, sleep apnea; ?? liver disease; ?? a drug or alcohol addiction; ?? kidney disease; ?? a head injury or seizures; ?? urination problems; or ?? problems with your thyroid, pancreas, or gallbladder. If you use opioid medicine while you are , your baby could become dependent on the drug. This can cause life-threatening withdrawal symptoms in the baby after it is born. Babies born dependent on opioids may need medical treatment for several weeks. Ask a doctor before using opioid medicine if you are . Tell your doctor if you notice severe drowsiness or slow breathing in the nursing baby. How should I take acetaminophen and oxycodone? Follow all directions on your prescription label. Never take this medicine in larger amounts, or for longer than prescribed. An overdose can damage your liver or cause . Tell your doctor if you feel an increased urge to use more of this medicine. Never share opioid medicine with another person, especially someone with a history of drug abuse or addiction. MISUSE CAN CAUSE ADDICTION, OVERDOSE, OR . Keep the medicine in a place where others cannot get to it. Selling or giving away opioid medicine is against the law. Measure liquid medicine carefully. Use the dosing syringe provided, or use a medicine dose-measuring device (not a kitchen spoon). If you need surgery or medical tests, tell the doctor ahead of time that you are using this medicine. You should not stop using this medicine suddenly. Follow your doctor's instructions about tapering your dose. Store at room temperature away from moisture and heat. Keep track of your medicine. You should be aware if anyone is using it improperly or without a prescription. Do not keep leftover opioid medication. Just one dose can cause in someone using this medicine accidentally or improperly. Ask your pharmacist where to locate a drug take-back disposal program. If there is no take-back program, flush the unused medicine down the toilet. What happens if I miss a dose? Since this medicine is used for pain, you are not likely to miss a dose. Skip any missed dose if it is almost time for your next dose. Do not use two doses at one time. What happens if I overdose? Seek emergency medical attention or call the Poison Help line at . An overdose of this medicine can be fatal, especially in a child or other person using the medicine without a prescription. Overdose symptoms may include nausea, vomiting, sweating, severe drowsiness, pinpoint pupils, slow breathing, or no breathing. Your doctor may recommend you get naloxone (a medicine to reverse an opioid overdose) and keep it with you at all times. A person caring for you can give the naloxone if you stop breathing or don't wake up. Your caregiver must still get emergency medical help and may need to perform CPR (cardiopulmonary resuscitation) on you while waiting for help to arrive. Anyone can buy naloxone from a pharmacy or local health department. Make sure any person caring for you knows where you keep naloxone and how to use it. What should I avoid while taking acetaminophen and oxycodone? Avoid driving or operating machinery until you know how this medicine will affect you. Dizziness or drowsiness can cause falls, accidents, or severe injuries. Do not drink alcohol. Dangerous side effects or could occur. Ask a doctor or pharmacist before using any other medicine that may contain acetaminophen (sometimes abbreviated as APAP). Taking certain medications together can lead to a fatal overdose. What are the possible side effects of acetaminophen and oxycodone? Get emergency medical help if you have signs of an allergic reaction: hives; difficulty breathing; swelling of your face, lips, tongue, or throat. Opioid medicine can slow or stop your breathing, and may occur. A person caring for you should give naloxone and/or seek emergency medical attention if you have slow breathing with long pauses, blue colored lips, or if you are hard to wake up. In rare cases, acetaminophen may cause a severe skin reaction that can be fatal. This could occur even if you have taken acetaminophen in the past and had no reaction. Stop taking this medicine and call your doctor right away if you have skin redness or a rash that spreads and causes blistering and peeling. Call your doctor at once if you have: ?? noisy breathing, sighing, shallow breathing, breathing that stops; ?? a light-headed feeling, like you might pass out; ?? weakness, tiredness, fever, unusual bruising or bleeding; ?? confusion, unusual thoughts or behavior; ?? problems with urination; ?? liver problems--nausea, upper stomach pain, tiredness, loss of appetite, dark urine, cynthia-colored stools, jaundice (yellowing of the skin or eyes); ?? low cortisol levels-- nausea, vomiting, loss of appetite, dizziness, worsening tiredness or weakness; or ?? high levels of serotonin in the body--agitation, hallucinations, fever, sweating, shivering, fast heart rate, muscle stiffness, twitching, loss of coordination, nausea, vomiting, diarrhea. Serious breathing problems may be more likely in older adults and in those who are debilitated or have wasting syndrome or chronic breathing disorders. Common side effects include: ?? dizziness, drowsiness, feeling tired; ?? feelings of extreme happiness or sadness; ?? nausea, vomiting, stomach pain; ?? constipation; or ?? headache. This is not a complete list of side effects and others may occur. Call your doctor for medical advice about side effects. You may report side effects to FDA at 4-470-DLP-7950. What other drugs will affect acetaminophen and oxycodone? You may have breathing problems or withdrawal symptoms if you start or stop taking certain other medicines. Tell your doctor if you also use an antibiotic, antifungal medication, heart or blood pressure medication, seizure medication, or medicine to treat HIV or hepatitis C. Opioid medication can interact with many other drugs and cause dangerous side effects or . Be sure your doctor knows if you also use: ?? cold or allergy medicines, bronchodilator asthma/COPD medication, or a diuretic ('water pill'); ?? medicines for motion sickness, irritable bowel syndrome, or overactive bladder; ?? other opioids--opioid pain medicine or prescription cough medicine; ?? a sedative like Valium--diazepam, alprazolam, lorazepam, Xanax, Klonopin, Versed, and others; ?? drugs that make you sleepy or slow your breathing--a sleeping pill, muscle relaxer, medicine to treat mood disorders or mental illness; ?? drugs that affect serotonin levels in your body--a stimulant, or medicine for depression, Parkinson's disease, migraine headaches, serious infections, or nausea and vomiting. This list is not complete. Other drugs may affect acetaminophen and oxycodone, including prescription and eqhc-nuw-ltasyvg medicines, vitamins, and herbal products. Not all possible interactions are listed here. Where can I get more information? Your doctor or pharmacist can provide more information about acetaminophen and oxycodone. Remember, keep this and all other medicines out of the reach of children, never share your medicines with others, and use this medication only for the indication prescribed. Every effort has been made to ensure that the information provided by [employer]. ('[employer]') is accurate, up-to-date, and complete, but no guarantee is made to that effect. Drug information contained herein may be time sensitive. [employer] information has been compiled for use by healthcare practitioners and consumers in the [place] and therefore [employer] does not warrant that uses outside of the [place] are appropriate, unless specifically indicated otherwise. [employer] drug information does not endorse drugs, diagnose patients or recommend therapy. [employer] drug information is an informational resource designed to assist licensed healthcare practitioners in caring for their patients and/or to serve consumers viewing this service as a supplement to, and not a substitute for, the expertise, skill, knowledge and judgment of healthcare practitioners. The absence of a warning for a given drug or drug combination in no way should be construed to indicate that the drug or drug combination is safe, effective or appropriate for any given patient. [employer] does not assume any responsibility for any aspect of healthcare administered with the aid of information [employer] provides. The information contained herein is not intended to cover all possible uses, directions, precautions, warnings, drug interactions, allergic reactions, or adverse effects. If you have questions about the drugs you are taking, check with your doctor, nurse or pharmacist. Copyright 5604-9096 [employer]. Version: 20.03. Revision Date: 11/16/2020. Emergency Awareness and Preventative Care STROKE is an EMERGENCY Every Minute Counts Act FAST and Check for these signs: FACE Does the face look uneven? ARM Does one arm drift down? SPEECH Does their speech sound strange? TIME Call at any sign of stroke Stroke Risk Factors Atrial Fibrillation (irregular heartbeat) Diabetes Family history of stroke Heart Disease Heavy alcohol use High Blood Pressure High Cholesterol Physical inactivity and obesity Smoking Cigarette Smoking The facts are clear, cigarette smoking will shorten your life. Smoking can cause many illnesses along the way. As a healthcare provider, we recommend that you stop smoking. Assistance with quitting is available by contacting 3-323-OKPU-NOW. This is a free resource providing counseling, support, and referral. Or you may contact your personal physician. [employer] Suicide Prevention Lifeline: The National Suicide Prevention Lifeline is a national network of local crisis centers that provides free and confidential emotional support to people in suicidal crisis or emotional distress 24 hours a day, 7 days a week. Don't Wait! Stop a Heart Attack Before it Starts What is a heart attack? A heart attack is damage or to a part of the heart from severely decreased or lack of blood flow to the heart. Over time, arteries can become narrow from the buildup of fat and cholesterol, which is called plaque. The plaque can rupture causing a blood clot to form. When the blood clot forms, the artery can become severely narrowed or completely blocked, causing a heart attack. Heart attack is the leading cause of in the [place]. 85% of muscle damage occurs within the first 2 hours. Delay in the recognition of heart attack symptoms increases the chances of . Know the early symptoms of a heart attack: Nausea Feeling of fullness in chest Jaw Pain Pain that travels down one or both arms Fatigue/being tired Anxiety Back Pain Chest pressure, squeezing, or discomfort Shortness of breath Sweating, or a cold sweat Feeling of impending doom There are unusual signs of a heart attack, too! Women, the elderly, and diabetics may present with atypical symptoms: Fainting/dizziness Weakness Confusion Risk Factors for a Heart Attack Some heart disease risk factors, such as age and family history, cannot be changed. Others, like smoking and lack of exercise, can be changed. Smoking High Cholesterol High Blood Pressure Family History Obesity Age Gender (Males are at higher risk) Lack of Exercise Diabetes Diet Stress Excessive Alcohol Intake If you or someone you know is experiencing the signs and symptoms of a heart attack, DON???T DELAY. Call immediately and seek help. If someone collapses, perform CPR! Do not attempt to drive if you are having symptoms of heart attack. Hands-Only CPR Why Hands-Only CPR? Hands-Only CPR has been shown to be as effective as conventional CPR for cardiac arrests that occur outside of a hospital. Survival depends on immediately receiving CPR from someone nearby. How do you perform Hands-Only CPR? There are two easy steps: Call if you see a teen or adult collapse Push hard and fast in the center of the chest at a beat of 100 beats per minute. Save a life! 4 WAYS TO GET AHEAD OF SEPSIS SEPSIS is a MEDICAL EMERGENCY. Time matters! Infections put you and your family at risk for a life-threatening condition called sepsis. Sepsis is the body's extreme response to an infection. It is life-threatening, and without timely treatment, sepsis can rapidly lead to tissue damage, organ failure, and . Sepsis happens when an infection you already have-in your skin, lungs, urinary tract or somewhere else-triggers a chain reaction throughout your body. 1 PREVENT INFECTIONS Take good care of chronic conditions. Talk to your doctor about getting the recommended vaccines. 2 PRACTICE GOOD HYGIENE Wash your hands frequently. Keep cuts or open sores clean and covered until they are healed. 3 KNOW THE SYMPTOMS Confusion or disorientation Shortness of breath High heart rate Fever, shivering, or feeling very cold Extreme pain or discomfort Clammy or sweaty skin 4 ACT FAST Get medical care IMMEDIATELY if you suspect sepsis or if you have an infection that is not getting better or is getting worse. To learn more about sepsis and how to prevent infections, visit www.cdc.gov/sepsis. Test Results Laboratory or Other Results This Visit (last charted value for your 03/08/2021 visit) Hematology 02/25/2021 10:35 AM WBC: 7.6 K/uL -- Normal range between ( 3.9 and 10.0 ) RBC: 4.72 Million/uL -- Normal range between ( 3.93 and 5.22 ) Hct: 44.6 % -- Normal range between ( 34.1 and 44.9 ) Hgb: 14.1 Gram/dL -- Normal range between ( 11.2 and 15.7 ) Platelet Count: 229 K/uL -- Normal range between ( 163 and 369 ) MCH: 29.9 pg -- Normal range between ( 25.6 and 32.2 ) MCHC: 31.6 Gram/dL -- Normal range between ( 32.3 and 36.5 ) MCV: 94.5 fL -- Normal range between ( 79.0 and 94.8 ) Slide Review: No Eos %: 3.0 % -- Normal range between ( 1.0 and 7.0 ) Gaines #: 0.79 K/uL -- Normal range between ( 0.24 and 0.82 ) Eos #: 0.23 K/uL -- Normal range between ( 0.04 and 0.54 ) Gaines %: 10.4 % -- Normal range between ( 4.7 and 12.5 ) Baso %: 0.7 % -- Normal range between ( 0.0 and 1.0 ) Baso #: 0.05 K/uL -- Normal range between ( 0.01 and 0.08 ) RDW: 13.8 % -- Normal range between ( 11.6 and 14.4 ) Neut %: 59.0 % -- Normal range between ( 34.0 and 71.0 ) Neut #: 4.50 K/uL -- Normal range between ( 1.56 and 6.13 ) Lymph %: 26.6 % -- Normal range between ( 19.3 and 53.0 ) Lymph #: 2.03 K/uL -- Normal range between ( 1.18 and 3.74 ) MPV: 11.4 fL -- Normal range between ( 9.4 and 12.4 ) IG#: 0 x10(3)/uL IG%: 0 % -- Normal range between ( 0 and 1 ) Urinalysis 03/08/2021 6:18 AM Ur RBC: None Seen Urine Nitrite: Negative Urine Leukocyte Esterase: Small Urine Appearance: Clear Urine Glucose Dipstick: Negative Urine Blood Dipstick: Negative Urine Type: U CleanCatch Urine Urobilinogen Dipstick: 0.2 EU/dL -- Normal range between ( 0.2 and 1.0 ) Urine Protein Dipstick: Negative Ur Bacteria: Trace Ur Squamous Epithelial Cells: 2-5 /HPF Urine Color: Yellow Ur WBC: 2-5 /HPF Urine Ketones Dipstick: Negative Urine pH Dipstick: 7.0 -- Normal range between ( 6.0 and 8.0 ) Urine Bilirubin Dipstick: Negative Urine Specific [place]: 1.016 -- Normal range between ( 1.005 and 1.030 ) 02/25/2021 10:35 AM Ur Epithelial Cells: 2-5 /HPF Ur WBC Clumps: Present Urine Type.: U CleanCatch Urine Culture if Indicated: Culture Ordered Microbiology 03/06/2021 11:30 AM SARS-CoV-2 (COVID19 PCR): Negative 02/25/2021 10:35 AM Urine Culture: POS Blood Bank 03/08/2021 7:00 AM ABO/Rh Repeat: A POS 03/08/2021 6:58 AM ABO/Rh: A POS Antibody Screen (Tube): Negative ABSC General Chemistry 02/25/2021 10:35 AM Creatinine Level: 0.68 mg/dL -- Normal range between ( 0.55 and 1.02 ) Sodium Level: 141 mmol/L -- Normal range between ( 136 and 146 ) Potassium Level: 4.1 mmol/L -- Normal range between ( 3.5 and 5.1 ) Chloride Level: 103 mmol/L -- Normal range between ( 102 and 112 ) Carbon Dioxide Level: 31 mmol/L -- Normal range between ( 21 and 32 ) Anion Gap: 11 -- Normal range between ( 9 and 20 ) Bilirubin Total: 0.5 mg/dL -- Normal range between ( 0.2 and 1.3 ) A/G Ratio: 0.8 -- Normal range between ( 1.1 and 2.5 ) ALT: 28 Units/Liter -- Normal range between ( 12 and 78 ) AST: 28 Units/Liter -- Normal range between ( 5 and 37 ) Globulin: 4.6 Gram/dL -- Normal range between ( 1.5 and 4.5 ) Alk Phos: 102 Units/Liter -- Normal range between ( 27 and 136 ) Bun/Creatinine: 20.6 -- Normal range between ( 8.0 and 20.0 ) Calcium Level: 10.0 mg/dL -- Normal range between ( 8.5 and 10.1 ) eGFR : >60 mL/min/1.73m2 eGFR NonAfrican: >60 mL/min/1.73m2 Glucose Level: 108 mg/dL -- Normal range between ( 74 and 106 ) Blood Urea Nitrogen: 14 mg/dL -- Normal range between ( 7 and 22 ) Protein Total: 8.3 Gram/dL -- Normal range between ( 6.4 and 8.2 ) Albumin Level: 3.7 Gram/dL -- Normal range between ( 3.4 and 5.0 ) Coagulation 02/25/2021 10:35 AM INR: 1.0 -- Normal range between ( 0.9 and 1.1 ) PT: 10.8 Second(s) -- Normal range between ( 9.6 and 11.5 ) Diagnostic Radiology 02/25/2021 12:20 PM CR Chest 2 Vws: CR Chest 2 Vws Patient Name:CYDNEY HAN I have received this information and was given the opportunity to ask questions. Patient/Bridge Painter Name: Patient/Bridge Painter Signature: Relationship to Patient: Clinician/Hospital Bridge Painter Signature: Date: documented in this encounter Plan of Treatment Upcoming Encounters Date Type Department Care Team (Late st Contact Info) Description 12/26/2025 12:45 PM EDT Office Visit [address] [phone] Enrique Barrera MD [address] [place] [id number] 05/11/2026 1:30 PM EDT Appointment [address] [place] [phone] documented as of this encounter Visit Diagnoses Not on filedocumented in this encounter Care Teams Patternmaker Bench Relationship Specialty Start Date End Date Celia Oscar MD [address] [place] [address] PCP - General General Internal Medicine 11/24/2211/12 Celia Oscar MD [address] [place] [address] PCP - General General Internal Medicine 12/27/24 documented as of this encounter
--- OUTSIDE RECORDS SUMMARY | 2025-06-13 11:44 | XMS_ITS | Encounter Summary ---
Author Organization [employer] ([place], [place], [place], [place]) Address [address] [place] [address] Care Team Providers Care Latin Teacher Name Role Phone Celia Oscar MD Primary Care Provider [phone] Celia Oscar MD Primary Care Provider Encounter Details Date Type Department Care Team (Late st Contact Info) Description 08/28/2020 Transcribed Document [facility] Family Medicine [address] [place] [address] ProviderJose MD [address] [place] [address] Social History Tobacco Use Types Packs/Day Years Used Date Smoking Tobacco: Never Assessed Comments Unknown Sex and Gender Information Value Date Recorded Sex Assigned at Not on file Legal Sex Female 12:31 PM CDT Gender Identity Not on file Sexual Orientation Not on file documented as of this encounter Miscellaneous Notes * Cerner Conversion Note - Jose ProviderMD - 08/28/2020 7:33 PM DRY CLEANER [place] [id number] [facility] REPORT PATIENT IDENTIFICATION: KARISSA HAN (Female - 1945) ACCOUNT / UNIT NUMBER: [id number] / [id number] PRIMARY CARE PHYSICIAN: CELIA OSCAR PATIENT LOCATION: [facility] ADMIT DATE / TIME: 08/28/20 1314 DISCHARGE DATE / TIME: DICTATED: 08/28/20 1433 by KENYETTA STEPHENS TRANSCRIBED: 08/28/201904 by JINA IMPORTED: 08/28/201908 CC: CELIA OSCAR; KENYETTA STEPHENS\R\ DATE OF SERVICE: 08/28/2020 SLEEP TELEMEDICINE FOLLOWUP Ms. Han is seen in followup with insomnia, last seen here on November 15, 2018. She has done very well using zolpidem at 5 mg nightly. This has been very effective and allows her to sleep about 5 hours per night. She has had no problems tolerating zolpidem and no sleepwalking, no memory problems, and no dose escalation. She previously tried doxepin and felt that this made her drugged the next day. She reports no sleepiness and scores 4/24 in the Deposit Sleepiness Scale. There are no other sleep concerns. Other medical problems include hypertension, hyperlipidemia, gastroesophageal reflux, and allergies. REVIEW OF SYSTEMS: Lower extremity edema and anxiety. MEDICATIONS: 1. Lisinopril. 2. Amlodipine. 3. Simvastatin. 4. Nexium. 5. Ambien. 6. Hydrochlorothiazide. 7. Singulair. 8. Flonase. 9. Olopatadine eye drops. 10. Multivitamin. 11. Vitamin D. 12. Turmeric. 13. Magnesium. 14. Ocular vitamins. PHYSICAL EXAMINATION: GENERAL: Ms. Han is a pleasant woman, who is in no distress. VITAL SIGNS: Height is 5 feet 6 inches, weight is 213.7 pounds with a body mass index of 35. Neck size 16 inches. Blood pressure 145/75, pulse 82, respirations 20, oxygen saturation 96%. HEENT: Head and neck exam shows normal-appearing nasal mucosa bilaterally without obstruction. The oral exam shows normal oral mucosa with Mallampati class 1 appearance. The skin around the nose and mouth was intact. NECK: Normal appearing. MENTAL STATUS: She was awake, alert, cooperative, cheerful. Memory appeared intact. ASSESSMENT: 1. Insomnia, chronic, doing well with zolpidem at 5 mg nightly and tolerating it well. 2. Obesity. 3. Hypertension. 4. Gastroesophageal reflux. 5. Hyperlipidemia. RECOMMENDATIONS: 1. Continue with current zolpidem treatment. 2. We will plan to follow up in 1 year and as needed. /[id number] CC: Celia Delilahelif Oscar Dictated By: KENYETTA STEPHENS E-Signed By: JUD [id number] [\R\ rep ct labl] [\R\ rep ct ivnm] Medical Disclaimer: This report is to be considered preliminary until reviewed and signed. documented in this encounter Plan of Treatment Upcoming Encounters Date Type Department Care Team (Late st Contact Info) Description 12/26/2025 12:45 PM EDT Office Visit [address] [phone] Enrique Barrera MD [address] [place] [phone] 05/11/2026 1:30 PM EDT Appointment [address] [place] [phone] documented as of this encounter Visit Diagnoses Not on filedocumented in this encounter Care Teams Latin Teacher Relationship Specialty Start Date End Date Celia Oscar MD [address] [address] PCP - General General Internal Medicine 11/24/2211/12 Celia Oscar MD [address] [place] [address] PCP - General General Internal Medicine 12/27/24 documented as of this encounter
--- OUTSIDE RECORDS SUMMARY | 2025-06-13 11:44 | XMS_ITS | Encounter Summary ---
Author Organization [employer] ([place], [place], [place], [place]) Address [address] [place] [address] Care Team Providers Care Research Center Director Name Role Phone Celia Oscar MD Primary Care Provider [phone] Celia Oscar MD Primary Care Provider [phone] Encounter Details Date Type Department Care Team (Late st Contact Info) Description 03/08/2021 Transcribed Document [facility] [place] [place] [address] ProviderJose MD [address] [place] [address] Social History Tobacco Use Types Packs/Day Years Used Date Smoking Tobacco: Never Assessed Comments Unknown Sex and Gender Information Value Date Recorded Sex Assigned at Not on file Legal Sex Female 12:31 PM CDT Gender Identity Not on file Sexual Orientation Not on file documented as of this encounter Miscellaneous Notes * Cerner Conversion Note - Jose Evans MD - 03/08/2021 11:59 AM CDT Final Discharge Planning Entered On: 03/08/2021 11:59 EDT Performed On: 03/08/2021 11:59 EDT by KENA MOHAN, ERMA Final Discharge Planning Discharge Arrangements : Patient Post-Acute Information Patient Name: CYDNEY HAN Gender: Female : [birth year] Age: 75 Years No Post-Acute Placement(s) Listed No Post-Acute Service(s) Listed No [place] Referral(s) Listed Patient Offered Choice/Affiliations Explained : No Designation of Choice Signed : No Important Medicare Message Reviewed With : Other: outpatient Important Medicare Message Reviewed D/T : 03/08/2021 11:59 EDT Transportation Needs : Family/Friend Follow Up Appointment Scheduled : Yes Is Patient High/Moderate Readmission Risk? : No Patient/Family Notified of Plan : Yes Support Person/Pt Rep Notified of Plan : Yes Is Patient Ready for Discharge? : Yes Physician Notified Patient is Ready for Discharge? : Yes Discharge To Care Management : Home/Residential/Longterm or Self Care -01 KENA MOHAN RN - 03/08/2021 11:59 EDT Final Narrative Note Final Narrative Note : Patient discharging home today. No needs noted. No further Case management needs noted. KENA MOHAN RN - 03/08/2021 11:59 EDT Electronically signed by Onel, [facility] Conversion Building Admin Cerner at 01/29/2023 6:58 PM CDT documented in this encounter Plan of Treatment Upcoming Encounters Date Type Department Care Team (Late st Contact Info) Description 12/26/2025 12:45 PM EDT Office Visit [address] [phone] Enrique Barrera MD [address] [place] [address] 05/11/2026 1:30 PM EDT Appointment [address] [place] [phone] documented as of this encounter Visit Diagnoses Not on filedocumented in this encounter Care Teams Research Center Director Relationship Specialty Start Date End Date Celia Oscar MD [address] [facility] [place] [address] PCP - General General Internal Medicine 11/24/2211/12 Celia Oscar MD [address] [place] [address] PCP - General General Internal Medicine 12/27/24 documented as of this encounter
[2025-06-13 12:42] LABS: Amylase 65 U/L (30-110); Lipase 73 U/L (23-300)
[2025-06-14 08:13] LABS: CA 19-9 19 U/mL (0-35); CEA 1.6 ng/mL (0.0-4.7)
== END 2025-06-13 23:59 | disposition home or self-care (01) ==
LOC: LAB 11:29
PROVIDERS: PCP Pediatrics; Visit Provider Internal Medicine Gastroenterology
DX: C25.1 Malignant neoplasm of body of pancreas (principal); K86.81 Exocrine pancreatic insufficiency
CPT/HCPCS: 36415; 82150; 82378; 83690; 86301